=== PATIENT | female | born 2000 | race Caucasian/White ===

== ENCOUNTER → 2022-02-02 13:36 | Outpatient (BNVA) | payer OTHER, SELFPAY | PROVIDERS: PCP Pediatrics; Visit Provider Hospitalist | DX: J45.50 Severe persistent asthma, uncomplicated (principal); J30.9 Allergic rhinitis, unspecified; L20.89 Other atopic dermatitis | CPT/HCPCS: 99202 ==

== ENCOUNTER → 2022-06-22 13:40 | Outpatient (BNVA) | payer OTHER, SELFPAY | PROVIDERS: PCP Pediatrics; Visit Provider Nurse Practitioner Family | DX: J45.51 Severe persistent asthma with (acute) exacerbation (principal); Z79.52 Long term (current) use of systemic steroids; Z79.899 Other long term (current) drug therapy | CPT/HCPCS: 99212 ==

== ENCOUNTER 2022-10-25 | Outpatient (REF) | payer OTHER, SELFPAY | END 2022-10-25 00:01 | disposition home or self-care (01) | LOC: CF | PROVIDERS: Visit Provider Nurse Practitioner Family | DX: J45.50 Severe persistent asthma, uncomplicated (principal); Z79.899 Other long term (current) drug therapy | CPT/HCPCS: 99212 ==

== ENCOUNTER 2022-10-25 09:29 | Outpatient (AMB) | payer OTHER, SELFPAY ==
--- NOTE | 2022-10-25 09:33 | MHC.OFFVIS ---
Intake Vital Signs 10/25/22 09:35 Height 4 ft 11 in Weight 152 lb BMI 30.7 BP 104/60 Blood Pressure Location Rt brachial Position Sitting Pulse 78 Pulse Source Pulse Oximeter Pulse Oximetry (%) 97 Oxygen Delivery Method Room Air Intake Visit Reasons: asthma flare up Caustic Loader Required: No Household Appliances Salesperson: Household Appliances Salesperson offered & declined Accompanied by: Self / Same As Patient Allergies No Known Allergies Allergy (Verified 10/25/22 09:39) Medication List - Last Reconciled 10/25/22 by Aracelis Chan LPN albuterol sulfate 90 mcg/actuation (Ventolin HFA) 0 mcg inhalation albuterol sulfate 2.5 mg (3 mL) inhalation Q6H PRN betamethasone dipropionate 0.05% topical BID PRN cetirizine 10 mg PO BID fluticasone propionate 50 mcg/actuation sprays intranasal hydroxyzine HCl 25 mg PO TID ibuprofen 600 mg PO Q6H PRN mometasone-formoterol 200-5 mcg/actuation (Dulera) 2 puffs inhalation BID montelukast 10 mg PO DAILY nebulizers As directed norgestrel-ethinyl estradiol 0.3-30 mg-mcg (Low-Ogestrel (28)) 1 tab PO DAILY prednisone 40 mg (4 x 10 mg) PO DIRECTED 5 days tiotropium bromide 2.5 mcg/actuation (Spiriva Respimat) 2 puffs inhalation DAILY triamcinolone acetonide 0.1% topical BID PRN Ventolin HFA 90 mcg/actuation (albuterol sulfate) 2 puffs inhalation Q6H PRN 30 days NS HPI asthma flare up HPI Details Shanta is a pleasant 22 year old female with a history of severe, persistent asthma. At [facility] she is well controlled with Dulera, Spiriva, singulair and albuterol neb/MDI. Today she is here for an acute visit. She reports wheezing, shortness of breath with exertion, night time awakenings and chest tightness for the past week. She denies a cough or any exposure to known triggers. She reports using her albuterol 2 puffs every 2-4 hours since symptoms started with partial relief. She has a nebulizer machine but has not used. She did note some relief after using one dose of left over prednisone tablet yesterday. [facility] Medical History (Updated 06/22/22 @ 14:09 by Fauzia Glynn NP) Atopic dermatitis Chronic allergic rhinitis Asthma Social History (Updated 10/25/22 @ 09:41 by Aracelis Chan LPN) Patient Tobacco Use Status: Never used Tobacco Smoked in Last 30 Days: No Review of Systems Const Denies chills, Denies excessive sweating, Denies fever(s), Denies headache(s) and Denies night sweats Eyes Denies dry eyes, Denies irritation and Denies itchy eyes ENT Reports Normal hearing present, Denies headache(s), Denies nasal congestion, Denies nasal discharge, Denies post nasal drip and Denies sore throat Card Denies chest pain, Denies chest pain at rest and Denies chest pain with activity Resp Denies chest congestion, Denies excessive phlegm production, Denies pain on inspiration, Denies pain with cough and Denies stridor Musc Denies myalgias Neuro Reports Normal hearing present and Denies headache(s) Endo Denies excessive sweating Bruno/Lymph Denies lymphadenopathy Aller/Immun Denies itchy eyes and Denies seasonal rhinorrhea Physical Exam Vital Signs: Last Vital Signs Pulse 78 10/25/22 09:35 BP 104/60 10/25/22 09:35 Pulse Ox 97 10/25/22 09:35 Oxygen Delivery Method Room Air 10/25/22 09:35 BMI result Body Mass Index 30.7 Const General: cooperative, healthy appearing, no acute distress, well developed and alert Orientation/consciousness: patient oriented x3 Limitations: no limitations HEENT Head: Yes normal to inspection, Yes normocephalic and Yes atraumatic Ears: hearing grossly normal bilaterally and external ears normal Eyes General: appearance normal, both eyes and all related structures Eyelids: Yes eyelids normal Sclerae: sclerae normal EOM: EOMs intact bilaterally Neck Neck: Yes normal visual inspection Lymphatic: no lymphadenopathy noted Chest Chest palpation & inspection: normal inspection of the chest Resp Effort & Inspection: normal respiratory effort, able to speak in complete sentences, no audible wheezes, no cough, not labored, no respiratory distress, no stridor, not tachypneic, no tripod positioning and no use of accessory muscles Auscultation: no crackles, no rales, no rhonchi and wheezes expiratory wheezes and throughout Cardio Jugular venous distension: no JVD Rate: regular rate Rhythm: regular rhythm Skin Other: warm, dry General skin exam: no rashes or lesions noted Neuro General: patient oriented x3 Cranial nerves: Yes Normal hearing present Cognition (Neuro): normal cognition Gait exam (Neuro): Normal gait present Extrem General: Yes normal to inspection, Yes capillary refill normal and Yes no clubbing, cyanosis or edema Psych Appearance: grossly normal and well kempt Speech and movement: Normal speech and movement present and Clear speech present Affect: normal affect Attitude: cooperative Thought process: Normal thought process present Thought content: Normal thought content present Insight: Good insight present (Psych) Judgement: Good judgement present (Psych) Assessment & Plan Assessment & Plan (1) Asthma: Code(s): J45.909 - Unspecified asthma, uncomplicated Qualifiers: Asthma severity: severe Asthma persistence: persistent Asthma complication type: uncomplicated Qualified Code(s): J45.50 - Severe persistent asthma, uncomplicated Plan Shanta's presentation is consistent with an acute asthma exacerbation. Will send in prednisone and albuterol for her nebulizer. She is aware to contact the office if her symptoms worsen or do not improve. Since the last visit, she did not have a PFT or labs performed. Will enter order for PFT and recommended scheduling a follow up with Dr. Khan. All questions were answered and patient is in agreement of plan. Orders: Orders PFT pulmonary function test Today J45.909 - Unspecified asthma, uncomplicated Medications: Changed From albuterol sulfate 2.5 mg (3 mL) inhalation Q6H PRN 75 mL 0RF shortness of breath or wheezing To albuterol sulfate 2.5 mg (3 mL) inhalation Q6H PRN 75 mL 3RF shortness of breath or wheezing NS Refilled prednisone see taper instructions 40 mg (4 x 10 mg) PO DIRECTED 5 days 20 tabs 0RF Coding Level of Care Code Est Pt Level 3 (22582) Diagnoses Severe persistent asthma without complication J45.50 Asthma severity: severe Asthma persistence: persistent Asthma complication type: uncomplicated
[2022-10-25 09:35] VITALS: BP 104/60; PULSE 78; O2SAT 97; BMI 30.7
== END 2022-10-25 10:10 | disposition home or self-care (01) ==
LOC: HO.HPSW 09:29
PROVIDERS: PCP Pediatrics; Visit Provider Nurse Practitioner Family
DX: J45.50 Severe persistent asthma, uncomplicated (principal)
CPT/HCPCS: 99212; 99213

== ENCOUNTER 2022-11-10 11:39 | Outpatient (AMB) | payer OTHER, SELFPAY ==
[2022-11-10 11:44] VITALS: PULSE 66; O2SAT 96; BMI 30.3
--- NOTE | 2022-11-10 11:44 | MHC.OFFVIS ---
Intake Vital Signs 11/10/22 11:44 Height 4 ft 11 in Weight 150 lb BMI 30.3 Pulse 66 Pulse Source Pulse Oximeter Pulse Oximetry (%) 96 Oxygen Delivery Method Room Air Intake Visit Reasons: asthma exacerbation Dry Chain Worker Required: No Allergies No Known Allergies Allergy (Verified 11/10/22 11:48) HPI HPI Comments History of Present Illness Details The patient is a 21-year-old woman with known severe persistent asthma. She has had asthma for most of her life. She has been under the care of pediatric pulmonary at [facility]. She has not required hospitalization in many years. In the meantime she has underlying significant allergic asthma. She has had allergy testing back in 2008 the last time that I could see. It appeared that she has significant allergies to both environment on exposures and mold. she is also very allergic to cats and dogs and primarily cats. Unfortunately she does have both cats and dogs living with her. Her IgE greater than 3000. Initially she had been on Xolair for peer time. However then she was switched over to Dupixent. The patient apparently did well on Dupixent but she developed significant conjunctivitis and therefore could no longer tolerated. She was also placed on Fasenra for period time. These medications were provided to her many years ago so therefore she does not know exactly how effective they were. But currently after she lost follow up with her retail business manager she stopped using biologics and she has been on inhaler therapy. She has required prednisone on a regular basis based on uncontrolled symptoms in addition to that she does continue to use albuterol on a daily basis. She currently has Ventolin as rescue inhaler although she feels ProAir has been more effective for her in the past. Therefore I will requested. She has been on Dulera and also Spiriva. She has been on this for a few years since she has not seen any significant improvement. Therefore she is wondering if she can consider any other alternatives. This time we can consider switching over to Trelegy. Another option would be to switch over to nebulized therapies will rib on performance. However, this will be more of a commitment with time and in that may be an issue. In addition to that we talked about going back on biologic therapies. Will have her undergo additional blood work at this time get PFTs to see what her baseline is and we will discuss further biologic therapy options that her left based on the once that she has not tried. 11/10/2022 the patient is here for sick visit. The patient was initially evaluated for her significant severe asthma. She was supposed to get blood work in addition to PFTs. Unfortunately, she has not follow through with that. In the meantime she is been evaluated multiple times for asthma flares. Today she did come in for sick visit. She is having increasing chest tightness and wheezing. Denies any fevers or chills. Positive sick contacts she does have cold-like symptoms. The patient has been using her respiratory therapy with Dulera and Spiriva. She is also been using rescue inhaler multiple times a day. At this point the patient does have wheezing on examination appears to have an asthma flare. She is going to need prednisone. 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 Therefore, I did provide her a letter for her to minimize exposure specially while she is recovering from this asthma flare-up. She knows to have a blood work in addition to her PFTs in order to see if we can get her on biologic therapy. She is already tried and failed multiple biologics therefore she is a little reluctant. I do believe that Tezspire will be a good option for [facility] Medical History (Updated 11/10/22 @ 22:47 by Emeka Khan MD) Atopic dermatitis Chronic allergic rhinitis Asthma Social History (Updated 10/25/22 @ 09:41 by Aracelis Chan LPN) Patient Tobacco Use Status: Never used Tobacco Review of Systems Const Denies fatigue and Denies fever(s) Eyes Denies change in vision ENT Denies change in voice Card Denies chest pain and Reports dyspnea on exertion Resp Reports chest congestion, Reports cough, Reports dyspnea on exertion and Reports wheezing GI Reports no additional complaints Musc Reports no additional complaints Skin/Breast Reports rash Neuro Reports no additional complaints Endo Denies fatigue Bruno/Lymph Denies easy bruising and Denies lymphadenopathy Aller/Immun Reports urticaria, Reports seasonal rhinorrhea and Reports wheezing Physical Exam Vital Signs: Last Vital Signs Pulse 66 11/10/22 11:44 Pulse Ox 96 11/10/22 11:44 Oxygen Delivery Method Room Air 11/10/22 11:44 BMI result Body Mass Index 30.3 Const General: comfortable HEENT General nose exam: Abnormal mucous membranes and turbinates present erythematous and Epistaxis present Eyes General: appearance normal, both eyes and all related structures Neck Neck: Yes supple Chest Chest palpation & inspection: normal inspection of the chest Resp Effort & Inspection: normal respiratory effort and prolonged expiratory phase Auscultation: wheezes and diminished lung sounds Cardio Rate: regular rate Rhythm: regular rhythm Heart sounds: S1 normal heart sound present and S2 normal heart sound present GI Auscultation: normal bowel sounds Skin General skin exam: other ( Eczema) Extrem General: Yes no clubbing, cyanosis or edema Assessment & Plan Assessment & Plan (1) Asthma: Code(s): J45.909 - Unspecified asthma, uncomplicated Qualifiers: Asthma complication type: with acute exacerbation Asthma persistence: persistent Asthma severity: severe Qualified Code(s): J45.51 - Severe persistent asthma with (acute) exacerbation (2) Atopic dermatitis: Code(s): L20.9 - Atopic dermatitis, unspecified Qualifiers: Atopic dermatitis type: flexural Qualified Code(s): L20.89 - Other atopic dermatitis (3) Chronic allergic rhinitis: Code(s): J30.9 - Allergic rhinitis, unspecified Plan continue Dulera and Spiriva for now short-acting beta agonist as needed blood work including allergy testing PFTs Will benefit from Tezspire start Prednisone taper Located Within [facility] follow-up in 8-12 weeks Medications: New azithromycin 500 mg PO DAILY 5 days 5 tabs 0RF prednisone PO daily; Take 6 tabs daily x 3 days, then 5 tabs x 3 days, then 4 tabs x 3 days, then 3 tabs x 3 days, then 2 tabs daily x 3 days, then 1 tab x 3 days to complete. 18 days 63 tabs 0RF Coding Level of Care Code Est Pt Level 4 (10135) Diagnoses Severe persistent asthma with acute exacerbation J45.51 Asthma complication type: with acute exacerbation Asthma persistence: persistent Asthma severity: severe Flexural atopic dermatitis L20.89 Atopic dermatitis type: flexural Chronic allergic rhinitis J30.9 Time Spent (min) 17
== END 2022-11-10 11:58 | disposition home or self-care (01) ==
PROVIDERS: PCP Pediatrics; Visit Provider Hospitalist
DX: J45.51 Severe persistent asthma with (acute) exacerbation (principal); L20.89 Other atopic dermatitis; J30.9 Allergic rhinitis, unspecified
CPT/HCPCS: 99214

== ENCOUNTER → 2022-11-10 11:39 | Outpatient (BNVA) | payer OTHER, SELFPAY | PROVIDERS: PCP Pediatrics; Visit Provider Hospitalist | DX: J45.51 Severe persistent asthma with (acute) exacerbation (principal); J30.9 Allergic rhinitis, unspecified; L20.89 Other atopic dermatitis | CPT/HCPCS: 99212 ==

== ENCOUNTER 2023-02-09 09:56 | Outpatient (AMB) | payer OTHER, SELFPAY ==
--- NOTE | 2023-02-09 10:01 | MHC.OFFVIS ---
Intake Vital Signs 02/09/23 10:02 Height 4 ft 11 in Weight 155 lb BMI 31.3 BP 102/60 Blood Pressure Location Lt brachial Position Sitting Pulse 68 Pulse Source Pulse Oximeter Pulse Oximetry (%) 95 Oxygen Delivery Method Room Air Intake Visit Reasons: cough Intake Note: pt is here for cough and chest congestion. the cough is causing some discomfort in the chest, phelgm is yellow in color, wheeze, hx of asthma Hospital Ward Clerk Required: No Allergies No Known Allergies Allergy (Verified 02/09/23 10:34) Medication List - Last Reconciled 02/09/23 by Isidro Cuevas MD albuterol sulfate 90 mcg/actuation (Ventolin HFA) 0 mcg inhalation albuterol sulfate 2.5 mg (3 mL) inhalation Q6H PRN NS betamethasone dipropionate 0.05% topical BID PRN cetirizine 10 mg PO BID cholecalciferol (vitamin D3) (Vitamin D3) 50 mcg PO DAILY fluticasone propionate 50 mcg/actuation sprays intranasal hydroxyzine HCl 25 mg PO TID ibuprofen 600 mg PO Q6H PRN mometasone-formoterol 200-5 mcg/actuation (Dulera) 2 puffs inhalation BID montelukast 10 mg PO DAILY nebulizers As directed norgestrel-ethinyl estradiol 0.3-30 mg-mcg (Low-Ogestrel (28)) 1 tab PO DAILY prednisone PO daily; Take 6 tabs daily x 3 days, then 5 tabs x 3 days, then 4 tabs x 3 days, then 3 tabs x 3 days, then 2 tabs daily x 3 days, then 1 tab x 3 days to complete. 18 days tezepelumab-ekko (Tezspire) 210 mg (1.91 mL) subcut Q4W 4 weeks tiotropium bromide 2.5 mcg/actuation (Spiriva Respimat) 2 puffs inhalation DAILY triamcinolone acetonide 0.1% topical BID PRN Do you need a note to return to daycare/school/sports/work: No HPI cough HPI Details THIS 22 YEARS OLD FEMALE IS A KNOWN CASE OF CHRONIC BRONCHIAL ASTHMA AND ALLERGIC RHINITIS. HAS A BASELINE SHE IS BEING TREATED WITH DULERA, SPIRIVA RESPIMAT, AND ALBUTEROL NEEDED. SHE HAS SYMPTOMS OF ACUTE EXACERBATION INCLUDING COUGH, CHEST CONGESTION, WHEEZING AND INCREASED SHORTNESS OF BREATH SINCE 1 WEEK. SHE HAS BEEN PRESCRIBED THE PREDNISONE ON A TAPERING DOSE AND IS DOWN TO 20 MG A DAY ALREADY. SHE FEELS SKILLED NURSING BETTER BUT STILL CONTINUES TO HAVE COUGH AND CONGESTED FEELING. [facility] Medical History (Updated 02/09/23 @ 10:40 by Isidro Cuevas MD) Asthma exacerbation Atopic dermatitis Chronic allergic rhinitis Asthma Social History Patient Tobacco Use Status: Never used Tobacco Review of Systems Const Denies fatigue and Denies fever(s) Eyes Denies change in vision ENT Denies change in voice Card Denies chest pain and Reports dyspnea on exertion Resp Reports chest congestion, Reports cough, Reports dyspnea on exertion and Reports wheezing GI Reports no additional complaints Musc Reports no additional complaints Skin/Breast Reports rash Neuro Reports no additional complaints Endo Denies fatigue Bruno/Lymph Denies easy bruising and Denies lymphadenopathy Aller/Immun Reports urticaria, Reports seasonal rhinorrhea and Reports wheezing Physical Exam Vital Signs: Last Vital Signs Pulse 68 02/09/23 10:02 BP 102/60 02/09/23 10:02 Pulse Ox 95 02/09/23 10:02 Oxygen Delivery Method Room Air 02/09/23 10:02 BMI result Body Mass Index 31.3 Const General: comfortable HEENT General nose exam: Normal external nose present Mouth: Normal oral and palatal mucosa present Throat: Yes posterior oropharynx normal Eyes General: appearance normal, both eyes and all related structures Neck Neck: Yes supple Chest Chest palpation & inspection: normal inspection of the chest, normal palpation of entire chest wall and no tenderness Resp Effort & Inspection: normal respiratory effort and prolonged expiratory phase Auscultation: wheezes (BILATERAL ) and diminished lung sounds Cardio Rate: regular rate Rhythm: regular rhythm Heart sounds: S1 normal heart sound present and S2 normal heart sound present GI Auscultation: normal bowel sounds Skin General skin exam: other ( Eczema) Extrem General: Yes no clubbing, cyanosis or edema Assessment & Plan Assessment & Plan (1) Asthma exacerbation: Comment: AT THIS TIME SHE HAS ACUTE EXACERBATION PROBABLY RELATED TO ACUTE RESPIRATORY INFECTION. SHE IS ALREADY ON PREDNISONE TAPER. SHE DOES NEED A COURSE OF ANTIBIOTIC. ADVISED TO CONTINUE HER REGULAR MEDICAL REGIMEN. Code(s): J45.901 - Unspecified asthma with (acute) exacerbation Plan: I HAVE ORDERED Z-RAMONA. CONTINUE TO USE PREDNISONE AT A TAPERING SCHEDULE. MAY USE MUCINEX OR ROBITUSSIN 2 TSP T.I.D. FOR COUGH. (2) Chronic allergic rhinitis: Code(s): J30.9 - Allergic rhinitis, unspecified Plan: CONTINUE MONTELUKAST. 10 MG DAILY USE FLONASE NASAL SPRAY 1 SPRAY IN EACH NOSTRIL B.I.D. NEEDED. Medications: New azithromycin For 250 mg dose pack: take 500 mg today (day 1), then 250 mg for 4 days (days 2-5) PO 6 tabs 0RF Coding Level of Care Code Est Pt Level 3 (58357) Diagnoses Asthma exacerbation J45.901 Chronic allergic rhinitis J30.9
[2023-02-09 10:02] VITALS: BP 102/60; PULSE 68; O2SAT 95; BMI 31.3
== END 2023-02-09 10:35 | disposition home or self-care (01) ==
PROVIDERS: PCP Pediatrics; Visit Provider Internal Medicine
DX: J45.901 Unspecified asthma with (acute) exacerbation (principal); J30.9 Allergic rhinitis, unspecified
CPT/HCPCS: 99213

== ENCOUNTER → 2023-02-09 09:56 | Outpatient (BNVA) | payer OTHER, SELFPAY | PROVIDERS: PCP Pediatrics; Visit Provider Internal Medicine | DX: J45.901 Unspecified asthma with (acute) exacerbation (principal); J30.9 Allergic rhinitis, unspecified | CPT/HCPCS: 99212 ==

== ENCOUNTER 2023-02-23 13:46 | Outpatient (AMB) | payer OTHER, SELFPAY ==
--- NOTE | 2023-02-23 13:48 | A.OFFVIS_ITS ---
Intake Vital Signs 02/23/23 13:50 Weight 161 lb BP 114/62 Blood Pressure Location Lt brachial Position Sitting Pulse 88 Pulse Source Pulse Oximeter Pulse Oximetry (%) 96 Oxygen Delivery Method Room Air Intake Visit Reasons: asthma exacerbation Medical Imaging Technologist Required: No Gas Line Servicer: Gas Line Servicer offered & declined Accompanied by: Self / Same As Patient Allergies No Known Allergies Allergy (Verified 02/23/23 13:53) Medication List - Last Reconciled 02/23/23 by Aracelis Chan LPN albuterol sulfate 2.5 mg (3 mL) inhalation Q6H PRN NS betamethasone dipropionate 0.05% topical BID PRN cetirizine 10 mg PO BID cholecalciferol (vitamin D3) (Vitamin D3) 50 mcg PO DAILY fluticasone propionate 50 mcg/actuation sprays intranasal hydroxyzine HCl 25 mg PO TID ibuprofen 600 mg PO Q6H PRN mometasone-formoterol 200-5 mcg/actuation (Dulera) 2 puffs inhalation BID montelukast 10 mg PO DAILY nebulizers As directed norgestrel-ethinyl estradiol 0.3-30 mg-mcg (Low-Ogestrel (28)) 1 tab PO DAILY tezepelumab-ekko (Tezspire) 210 mg (1.91 mL) subcut Q4W 4 weeks tiotropium bromide 2.5 mcg/actuation (Spiriva Respimat) 2 puffs inhalation DAILY triamcinolone acetonide 0.1% topical BID PRN Ventolin HFA 90 mcg/actuation (albuterol sulfate) 2 puffs inhalation Q6H PRN NS HPI asthma exacerbation HPI Details Shanta is a pleasant 22 year old female with a history of severe, persistent asthma. At baseline she is moderately controlled with Dulera, Spiriva, singulair and albuterol neb/MDI. She will be starting Tezspire in the near future. Today she is here for an acute visit. She was recently evaluated for similar symptoms three weeks ago, treated with a zpak and prednisone which improved but once she discontinued prednisone, symptoms of wheezing, shortness of breath with exertion and chest tightness began a few days later. She reports using her albuterol 2 puffs every 2-4 hours since symptoms started with partial relief. [facility] Medical History (Updated 02/09/23 @ 10:40 by Isidro Cuevsa MD) Asthma exacerbation Atopic dermatitis Chronic allergic rhinitis Asthma Social History (Updated 02/23/23 @ 13:55 by Aracelis Chan LPN) Patient Tobacco Use Status: Never used Tobacco Smoked in Last 30 Days: No Review of Systems Const Denies chills, Denies excessive sweating, Denies fever(s), Denies headache(s) and Denies night sweats Eyes Denies dry eyes, Denies irritation and Denies itchy eyes ENT Reports Normal hearing present, Denies headache(s), Denies nasal congestion, Denies nasal discharge, Denies post nasal drip and Denies sore throat Card Denies chest pain, Denies chest pain at rest, Denies chest pain with activity and Reports dyspnea Resp Denies chest congestion, Reports cough, Denies excessive phlegm production, Denies pain on inspiration, Denies pain with cough, Reports dyspnea, Denies stridor and Reports wheezing Musc Denies myalgias Neuro Reports Normal hearing present and Denies headache(s) Endo Denies excessive sweating Bruno/Lymph Denies lymphadenopathy Aller/Immun Denies itchy eyes, Denies seasonal rhinorrhea and Reports wheezing Physical Exam Vital Signs: Last Vital Signs Pulse 88 02/23/23 13:50 BP 114/62 02/23/23 13:50 Pulse Ox 96 02/23/23 13:50 Oxygen Delivery Method Room Air 02/23/23 13:50 Const General: cooperative, healthy appearing, no acute distress, well developed and alert Orientation/consciousness: patient oriented x3 Limitations: no limitations HEENT Head: Yes normal to inspection, Yes normocephalic and Yes atraumatic Ears: hearing grossly normal bilaterally and external ears normal Eyes General: appearance normal, both eyes and all related structures Eyelids: Yes eyelids normal Sclerae: sclerae normal EOM: EOMs intact bilaterally Neck Neck: Yes normal visual inspection Lymphatic: no lymphadenopathy noted Chest Chest palpation & inspection: normal inspection of the chest Resp Other: moderate wheezing throughout , improved after duoneb Effort & Inspection: normal respiratory effort, able to speak in complete sentences, no audible wheezes, no cough, not labored, no respiratory distress, no stridor, not tachypneic, no tripod positioning and no use of accessory muscles Auscultation: no crackles, no rales, no rhonchi and wheezes expiratory wheezes and throughout Cardio Jugular venous distension: no JVD Rate: regular rate Rhythm: regular rhythm Skin Other: warm, dry General skin exam: no rashes or lesions noted Neuro General: patient oriented x3 Cranial nerves: Yes Normal hearing present Cognition (Neuro): normal cognition Gait exam (Neuro): Normal gait present Extrem General: Yes normal to inspection, Yes capillary refill normal and Yes no clubbing, cyanosis or edema Psych Appearance: grossly normal and well kempt Speech and movement: Normal speech and movement present and Clear speech present Affect: normal affect Attitude: cooperative Thought process: Normal thought process present Thought content: Normal thought content present Insight: Good insight present (Psych) Judgement: Good judgement present (Psych) Office Procedures Nebulizer Treatment Nebulizer Treatment [id number]/MDI RX initial, or Nebulizer Subsequent Treatment Office Meds ipratropium 0.5 mg-albuterol 3 mg (2.5 mg base)/3 mL nebulization soln Performing Provider: Fauzia Glynn NP Performing Location: [facility] [place] Pulmonology Services-[facility] Administered by: Aracelis Chan LPN on 02/23/23 14:15 Dose Route Admin Location Dispensed Lot Number Expiration Date [facility] Lab Coordinator 3 mL inhalation 3 mL [id number] 11/13/24 34199-517-26 [place] Assessment & Plan Assessment & Plan (1) Asthma: Code(s): J45.909 - Unspecified asthma, uncomplicated Qualifiers: Asthma severity: severe Asthma persistence: persistent Asthma complication type: with acute exacerbation Qualified Code(s): J45.51 - Severe persistent asthma with (acute) exacerbation Plan Shanta's presentation is consistent with an acute asthma exacerbation. Will send in prednisone. She is aware to contact the office if her symptoms worsen or do not improve. Will follow up for regularly scheduled follow up with Dr. Khan. All questions were answered and patient is in agreement of plan. Orders: Orders AMB Nebulizer Treatment Today J45.901 - Unspecified asthma with (acute) exace rbation Medications: New prednisone Take 4 pills daily for 5 days, then go down by 1 pill every 5 days; 20 days 50 tabs 0RF 10 mg PO DIRECTED 50 tabs 0RF Coding Level of Care Code Est Pt Level 4 (01000) Diagnoses Severe persistent asthma with acute exacerbation J45.51 Asthma severity: severe Asthma persistence: persistent Asthma complication type: with acute exacerbation CPT Codes Nebulizer Treatment - Nebulizer Treatment, initial or subsequent: [id number]- Nebulizer/MDI RX initial, or Nebulizer Subsequent Treatment ([id number])
[2023-02-23 13:50] VITALS: BP 114/62; PULSE 88; O2SAT 96
== END 2023-02-23 15:02 | disposition home or self-care (01) ==
PROVIDERS: PCP Pediatrics; Visit Provider Nurse Practitioner Family
DX: J45.51 Severe persistent asthma with (acute) exacerbation (principal); J45.901 Unspecified asthma with (acute) exacerbation
CPT/HCPCS: 99214

== ENCOUNTER → 2023-02-23 13:46 | Outpatient (BNVA) | payer OTHER, SELFPAY | PROVIDERS: PCP Pediatrics; Visit Provider Nurse Practitioner Family | DX: J45.51 Severe persistent asthma with (acute) exacerbation (principal) | CPT/HCPCS: 94640; 99212 ==

== ENCOUNTER 2023-03-04 11:06 | Outpatient (AMB) | payer OTHER, SELFPAY ==
[2023-03-04 11:14] VITALS: PULSE 76; O2SAT 97; BMI 31.5
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
== END 2023-03-04 11:31 | disposition home or self-care (01) ==
PROVIDERS: PCP Pediatrics; Visit Provider Hospitalist
DX: J45.51 Severe persistent asthma with (acute) exacerbation (principal); L20.89 Other atopic dermatitis; J30.9 Allergic rhinitis, unspecified
CPT/HCPCS: 99214

== ENCOUNTER → 2023-03-04 11:06 | Outpatient (BNVA) | payer OTHER, SELFPAY | PROVIDERS: PCP Pediatrics; Visit Provider Hospitalist | DX: J45.51 Severe persistent asthma with (acute) exacerbation (principal); J30.9 Allergic rhinitis, unspecified; L20.89 Other atopic dermatitis | CPT/HCPCS: 99212 ==

== ENCOUNTER 2023-04-19 09:57 | Outpatient (AMB) | payer OTHER, SELFPAY ==
[2023-04-19 11:12] VITALS: BP 110/60; PULSE 90; O2SAT 99
--- NOTE | 2023-04-19 11:12 | A.OFFVIS_ITS ---
Intake Vital Signs 04/19/23 11:12 Weight 154 lb 5.177 oz BP 110/60 Blood Pressure Location Rt brachial Position Sitting Pulse 90 Pulse Source Pulse Oximeter Pulse Oximetry (%) 99 Oxygen Delivery Method Room Air Intake Visit Reasons: Tezspire Teaching Allergies No Known Allergies Allergy (Verified 04/19/23 11:12) Medication List - Last Reconciled 04/19/23 by Parvin Beyer LPN albuterol sulfate 2.5 mg (3 mL) inhalation Q6H PRN NS betamethasone dipropionate 0.05% topical BID PRN cetirizine 10 mg PO BID cholecalciferol (vitamin D3) (Vitamin D3) 50 mcg PO DAILY fluticasone propionate 50 mcg/actuation sprays intranasal hydroxyzine HCl 25 mg PO TID ibuprofen 600 mg PO Q6H PRN mometasone-formoterol 200-5 mcg/actuation (Dulera) 2 puffs inhalation BID 30 days montelukast 10 mg PO DAILY 90 days nebulizers As directed norgestrel-ethinyl estradiol 0.3-30 mg-mcg (Low-Ogestrel (28)) 1 tab PO DAILY prednisone 10 mg PO DAILY 30 days prednisone 10 mg PO DIRECTED tezepelumab-ekko (Tezspire) 210 mg (1.91 mL) subcut Q4W 4 weeks tiotropium bromide 2.5 mcg/actuation (Spiriva Respimat) 2 puffs inhalation DAILY 30 days triamcinolone acetonide 0.1% topical BID PRN Ventolin HFA 90 mcg/actuation (albuterol sulfate) 2 puffs inhalation Q6H PRN NS HPI Tezspire Teaching HPI Details Shanta is here for a Tezspire teach she was educated on hand washing, injection preparation, administration, and disposal.? Shanta was able to return demonstrate proper technique for hand washing, injection preparation, administration and disposal of needle and states she has no questions at this time. Medication Tezspire 210mg pre-filled syringe (patient?s own meds) given by the patient in 1 SQ injection in her R abdomen Lot# [id number] expires 02/13/2025. Patient aware her next injection is in 4 weeks. Nurse visit only.? [facility] Medical History (Updated 03/04/23 @ 12:21 by Emeka Khan MD) Asthma exacerbation Atopic dermatitis Chronic allergic rhinitis Asthma Social History (Updated 02/23/23 @ 13:55 by Aracelis Chan LPN) Patient Tobacco Use Status: Never used Tobacco Physical Exam Vital Signs: Last Vital Signs Pulse 90 04/19/23 11:12 BP 110/60 04/19/23 11:12 Pulse Ox 99 04/19/23 11:12 Oxygen Delivery Method Room Air 04/19/23 11:12 Assessment & Plan Assessment & Plan (1) Asthma: Code(s): J45.909 - Unspecified asthma, uncomplicated Qualifiers: Asthma complication type: with acute exacerbation Asthma persistence: persistent Asthma severity: severe Qualified Code(s): J45.51 - Severe persistent asthma with (acute) exacerbation Plan Start Tezspire Coding Level of Care Code Established Pt Est Pt Level 1 (04689) Patient Type Established Diagnoses Severe persistent asthma with acute exacerbation J45.51 Asthma complication type: with acute exacerbation Asthma persistence: persistent Asthma severity: severe Comment NURSE VISIT ONLY
== END 2023-04-19 10:17 | disposition home or self-care (01) ==
PROVIDERS: PCP Pediatrics; Visit Provider Hospitalist
DX: J45.51 Severe persistent asthma with (acute) exacerbation (principal)

== ENCOUNTER → 2023-04-19 09:57 | Outpatient (BNVA) | payer OTHER, SELFPAY | PROVIDERS: PCP Pediatrics; Visit Provider Hospitalist | DX: J45.51 Severe persistent asthma with (acute) exacerbation (principal) | CPT/HCPCS: 99211 ==

== ENCOUNTER 2023-07-01 11:13 | Outpatient (AMB) | payer OTHER, SELFPAY ==
[2023-07-01 11:26] VITALS: PULSE 70; O2SAT 95; BMI 31.7
--- NOTE | 2023-07-01 11:26 | MHC.OFFVIS ---
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 She has had asthma for most of her life. She has been under the care of pediatric pulmonary at [facility]. She has not required hospitalization in many years. In the meantime she has underlying significant allergic asthma. She has had allergy testing back in 2008 the last time that I could see. It appeared that she has significant allergies to both environment on exposures and mold. she is also very allergic to cats and dogs and primarily cats. Unfortunately she does have both cats and dogs living with her. Her IgE greater than 3000. Initially she had been on Xolair for peer time. However then she was switched over to Dupixent. The patient apparently did well on Dupixent but she developed significant conjunctivitis and therefore could no longer tolerated. She was also placed on Fasenra for period time. These medications were provided to her many years ago so therefore she does not know exactly how effective they were. But currently after she lost follow up with her glass sander she stopped using biologics and she has been on inhaler therapy. She has required prednisone on a regular basis based on uncontrolled symptoms in addition to that she does continue to use albuterol on a daily basis. She currently has Ventolin as rescue inhaler although she feels ProAir has been more effective for her in the past. Therefore I will requested. She has been on Dulera and also Spiriva. She has been on this for a few years since she has not seen any significant improvement. Therefore she is wondering if she can consider any other alternatives. This time we can consider switching over to Trelegy. Another option would be to switch over to nebulized therapies will rib on performance. However, this will be more of a commitment with time and in that may be an issue. In addition to that we talked about going back on biologic therapies. Will have her undergo additional blood work at this time get PFTs to see what her baseline is and we will discuss further biologic therapy options that her left based on the once that she has not tried. 11/10/2022 the patient is here for sick visit. The patient was initially evaluated for her significant severe asthma. She was supposed to get blood work in addition to PFTs. Unfortunately, she has not follow through with that. In the meantime she is been evaluated multiple times for asthma flares. Today she did come in for sick visit. She is having increasing chest tightness and wheezing. Denies any fevers or chills. Positive sick contacts she does have cold-like symptoms. The patient has been using her respiratory therapy with Dulera and Spiriva. She is also been using rescue inhaler multiple times a day. At this point the patient does have wheezing on examination appears to have an asthma flare. She is going to need prednisone. 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 Therefore, I did provide her a letter for her to minimize exposure specially while she is recovering from this asthma flare-up. She knows to have a blood work in addition to her PFTs in order to see if we can get her on biologic therapy. She is already tried and failed multiple biologics therefore she is a little reluctant. I do believe that Tezspire will be a good option. 03/04/2023 the patient is here for a pulmonary follow-up visit. She has a hard time with the breathing. She has had multiple sick visits because of worsening asthma exacerbations. She is required prednisone now multiple times as well. She is still on a prednisone taper down to 30 mg. She also continues with respiratory medications although her Dulera was not refilled. I will make sure to send her all the medications the pharmacy as she needs to be able to continue with good adherence. In the meantime she was approved for test prior. Although, she lives in [place] and is very hard for her to get here. Therefore I did talk to our nursing staff and will going to see about switching her Tezspire to a home administration. Once she gets the medication at home if is approved then she will call the office for us to set up a 1 time visit for teaching. In the meantime I did set her additional prednisone. This is to slow down her prednisone tapers she can decrease down to 10 an [id number] so therefore she does not have another flare-up before her test prior injection. 07/01/2023 the patient is here for a pulmonary follow-up visit. She is doing fairly well. She does respond well to the Dulera and Spiriva. She has also been taking prednisone again. She started working outside and she started having a little flare up and she wanted to make sure that it improve so she did have to miss any work. She is working at a car wash. She has not exposed to the fumes or the chemicals because she is mainly outside. In the meantime she has responded well to the Tezspire. She has not been able to get it. Will go ahead and give her the information so she can call the pharmacy, [facility] in order to request delivery of the injections that she can continue the biologic therapy. The patient does have persistent severe asthma and therefore these biologic therapies will be crucial. She is going to monitor closely for any worsening eczema while on the Tezspire. In the meantime she is going to wean off her prednisone. [facility] Medical History (Updated 03/04/23 @ 12:21 by Emeka Khan MD) Asthma exacerbation Atopic dermatitis Chronic allergic rhinitis Asthma Social History (Updated 02/23/23 @ 13:55 by Aracelis Chan LPN) Patient Tobacco Use Status: Never used Tobacco Review of Systems Const Denies fatigue and Denies fever(s) Eyes Denies change in vision ENT Denies change in voice Card Denies chest pain and Reports dyspnea on exertion Resp Reports chest congestion, Reports cough, Reports dyspnea on exertion and Reports wheezing GI Reports no additional complaints Musc Reports no additional complaints Skin/Breast Reports rash Neuro Reports no additional complaints Endo Denies fatigue Bruno/Lymph Denies easy bruising and Denies lymphadenopathy Aller/Immun Reports urticaria, Reports seasonal rhinorrhea and Reports wheezing Physical Exam Vital Signs: Last Vital Signs Pulse 70 07/01/23 11:26 Pulse Ox 95 07/01/23 11:26 Oxygen Delivery Method Room Air 07/01/23 11:26 BMI result Body Mass Index 31.7 Const General: comfortable HEENT General nose exam: Abnormal mucous membranes and turbinates present erythematous and Epistaxis present Eyes General: appearance normal, both eyes and all related structures Neck Neck: Yes supple Chest Chest palpation & inspection: normal inspection of the chest Resp Effort & Inspection: normal respiratory effort and prolonged expiratory phase Auscultation: no wheezes and diminished lung sounds Cardio Rate: regular rate Rhythm: regular rhythm Heart sounds: S1 normal heart sound present and S2 normal heart sound present GI Auscultation: normal bowel sounds Skin General skin exam: other ( Eczema) Extrem General: Yes no clubbing, cyanosis or edema Assessment & Plan Assessment & Plan (1) Asthma: Code(s): J45.909 - Unspecified asthma, uncomplicated Category: Medical Qualifiers: Asthma complication type: with acute exacerbation Asthma persistence: persistent Asthma severity: severe Qualified Code(s): J45.51 - Severe persistent asthma with (acute) exacerbation (2) Atopic dermatitis: Code(s): L20.9 - Atopic dermatitis, unspecified Category: Medical Qualifiers: Atopic dermatitis type: flexural Qualified Code(s): L20.89 - Other atopic dermatitis (3) Chronic allergic rhinitis: Code(s): J30.9 - Allergic rhinitis, unspecified Category: Medical Plan continue Dulera and Spiriva short-acting beta agonist as needed start Tezspire with home administration, will call [facility] for shipment continue slow Prednisone taper Follow-up in 4 months Coding Level of Care Code Est Pt Level 4 (33555) Diagnoses Severe persistent asthma with acute exacerbation J45.51 Asthma complication type: with acute exacerbation Asthma persistence: persistent Asthma severity: severe Flexural atopic dermatitis L20.89 Atopic dermatitis type: flexural Chronic allergic rhinitis J30.9 Time Spent (min) 16
== END 2023-07-01 11:35 | disposition home or self-care (01) ==
PROVIDERS: PCP Pediatrics; Visit Provider Hospitalist
DX: J45.51 Severe persistent asthma with (acute) exacerbation (principal); L20.89 Other atopic dermatitis; J30.9 Allergic rhinitis, unspecified
CPT/HCPCS: 99214

== ENCOUNTER → 2023-07-01 11:13 | Outpatient (BNVA) | payer OTHER, SELFPAY | PROVIDERS: PCP Pediatrics; Visit Provider Hospitalist | DX: J45.51 Severe persistent asthma with (acute) exacerbation (principal); J30.9 Allergic rhinitis, unspecified; L20.89 Other atopic dermatitis | CPT/HCPCS: 99212 ==

== ENCOUNTER 2023-09-14 10:55 | Outpatient (AMB) | payer OTHER, SELFPAY ==
--- NOTE | 2023-09-14 10:57 | MHC.OFFVIS ---
Vital Signs 09/14/23 10:58 Height 4 ft 11 in Weight 158 lb 2 oz BMI 31.9 BP 116/72 Blood Pressure Location Rt brachial Position Sitting Pulse 78 Pulse Source Pulse Oximeter Temp 98.2 F Temp Source Oral Pulse Oximetry (%) 95 Oxygen Delivery Method Room Air Intake Visit Reasons: asthma exacerbation Allergies No Known Allergies Allergy (Verified 09/14/23 11:00) HPI HPI asthma exacerbation: Details: Shanta is a pleasant 23 year old female with a history of severe, persistent asthma. At baseline she is poorly controlled with Dulera, Spiriva, singulair and albuterol neb/MDI. She had one dose of Tezspire however missed one dose and received a shipment today. Today she is here for an acute visit. She reports sore throat, feeling feverish and productive cough with yellow sputum that started Tuesday with worsening dyspnea, wheezing, chest tightness. She started taking 60 mg of prednisone 2 days ago with no changes. She has been using both albuterol MDI/neb with minimal effect. [facility] Medical History (Updated 03/04/23 @ 12:21 by Emeka Khan MD) Asthma exacerbation Atopic dermatitis Chronic allergic rhinitis Asthma Social History Patient Tobacco Use Status: Never used Tobacco Review of Systems Const Denies chills, Denies excessive sweating, Denies fever(s), Denies headache(s) and Denies night sweats Eyes Denies dry eyes, Denies irritation and Denies itchy eyes ENT Reports Normal hearing present, Denies headache(s), Denies nasal congestion, Denies nasal discharge, Denies post nasal drip and Denies sore throat Card Denies chest pain, Denies chest pain at rest, Denies chest pain with activity, Denies claudication, Denies leg edema, Denies orthopnea and Denies paroxysmal nocturnal dyspnea Resp Denies excessive phlegm production, Denies pain on inspiration, Denies pain with cough and Denies stridor Musc Denies myalgias Neuro Reports Normal hearing present and Denies headache(s) Endo Denies excessive sweating Bruno/Lymph Denies lymphadenopathy Aller/Immun Denies itchy eyes and Denies seasonal rhinorrhea Physical Exam Vital Signs: Last Vital Signs Temp 98.2 F 07/31/24 10:58 Pulse 78 09/14/23 10:58 BP 116/72 09/14/23 10:58 Pulse Ox 95 09/14/23 10:58 Oxygen Delivery Method Room Air 09/14/23 10:58 BMI result Body Mass Index 31.9 Const General: cooperative, no acute distress, well developed and alert Nutritional Appearance: obese Orientation/consciousness: patient oriented x3 Limitations: no limitations HEENT Head: Yes normal to inspection, Yes normocephalic and Yes atraumatic Ears: hearing grossly normal bilaterally and external ears normal Eyes General: appearance normal, both eyes and all related structures Eyelids: Yes eyelids normal Sclerae: sclerae normal EOM: EOMs intact bilaterally Neck Neck: Yes normal visual inspection and Yes no lymphadenopathy Lymphatic: no lymphadenopathy noted Chest Chest palpation & inspection: normal inspection of the chest Resp Effort & Inspection: able to speak in complete sentences, no audible wheezes, no cough, labored, no stridor, not tachypneic, no tripod positioning and no use of accessory muscles Auscultation: rhonchi and wheezes Cardio Jugular venous distension: no JVD Rate: regular rate Rhythm: regular rhythm Skin Other: warm, dry General skin exam: no rashes or lesions noted Neuro General: patient oriented x3 Cranial nerves: Yes Normal hearing present Cognition (Neuro): normal cognition Gait exam (Neuro): Normal gait present Extrem General: Yes normal to inspection, Yes capillary refill normal, Yes no clubbing, cyanosis or edema and Yes no pedal edema Psych Appearance: grossly normal and well kempt Speech and movement: Normal speech and movement present and Clear speech present Affect: normal affect Attitude: cooperative Thought process: Normal thought process present Thought content: Normal thought content present Insight: Good insight present (Psych) Judgement: Good judgement present (Psych) Office Procedures Nebulizer Treatment Nebulizer Treatment [id number] RX initial, or Nebulizer Subsequent Treatment Office Meds methylprednisolone sod suc(PF) 125 mg/2 mL solution for injection Performing Provider: Fauzia Glynn NP Performing Location: [facility] Administered by: Aracelis Chan LPN on 09/14/23 11:39 Dose Route Admin Location Dispensed Lot Number Expiration Date [facility] [employer] 125 mg IM left buttock 2 ea [id number] 05/14/25 9963-5822-89 [employer] ipratropium 0.5 mg-albuterol 3 mg (2.5 mg base)/3 mL nebulization soln Performing Provider: Fauzia Glynn NP Performing Location: [facility] Administered by: Aracelis Chan LPN on 09/14/23 11:18 Dose Route Admin Location Dispensed Lot Number Expiration Date [place] [employer] 3 mL inhalation 3 mL [id number] 05/14/25 78062-802-04 [employer] Assessment & Plan Assessment & Plan (1) Asthma: Code(s): J45.909 - Unspecified asthma, uncomplicated Category: Medical Qualifiers: Asthma complication type: with acute exacerbation Asthma persistence: persistent Asthma severity: severe Qualified Code(s): J45.51 - Severe persistent asthma with (acute) exacerbation Plan Fuad presents with bronchitic symptoms as well as worsening respiratory symptoms. Will send in azithromycin as well as slow prednisone taper. Significant wheezing throughout on examination, mildly improved with DuoNeb. Solumedrol given in office She is aware to contact the office if her symptoms do not improve to call office or worsen to seek emergent care. Discussed importance of compliance with medication regimen. Will follow up for regularly scheduled follow up with Dr. Khan. All questions were answered and patient is in agreement of plan. Orders: Orders AMB Nebulizer Treatment Today J45.901 - Unspecified asthma with (acute) exacerbation AMB Methylprednisolone Sod Succ Injection Today J45.51 - Severe persistent asthma with (acute) exacerbation, J45.901 - Unspecified asthma with (acute) exacerbation Medications: New prednisone see taper instructions Take 6 pills daily for 3 days, then go down by 1 pill every 3 days; 18 days 63 tabs 0RF 10 mg PO DIRECTED 63 tabs 0RF azithromycin For 250 mg dose pack: take 500 mg today (day 1), then 250 mg for 4 days (days 2-5) PO 6 tabs 0RF Coding Level of Care Code Est Pt Level 4 (58695) Diagnoses Severe persistent asthma with acute exacerbation J45.51 Asthma complication type: with acute exacerbation Asthma persistence: persistent Asthma severity: severe CPT Codes Nebulizer Treatment - Nebulizer Treatment, initial or subsequent: [id number] RX initial, or Nebulizer Subsequent Treatment ([id number])
[2023-09-14 10:58] VITALS: BP 116/72; PULSE 78; TEMP 36.8; O2SAT 95; BMI 31.9
== END 2023-09-14 11:36 | disposition home or self-care (01) ==
LOC: HO.HPSW 10:55
PROVIDERS: PCP Pediatrics; Visit Provider Nurse Practitioner Family
DX: J45.901 Unspecified asthma with (acute) exacerbation (principal); J45.51 Severe persistent asthma with (acute) exacerbation
CPT/HCPCS: 99214

== ENCOUNTER → 2023-09-14 10:55 | Outpatient (BNVA) | payer OTHER, SELFPAY | PROVIDERS: PCP Pediatrics; Visit Provider Nurse Practitioner Family | DX: J45.51 Severe persistent asthma with (acute) exacerbation (principal) | CPT/HCPCS: 94640; 99212; J2919 ==

== ENCOUNTER 2024-03-20 09:58 | Outpatient (AMB) | payer MEDICAID, SELFPAY ==
--- NOTE | 2024-03-20 10:01 | A.OFFVIS_ITS ---
Vital Signs 03/20/24 10:02 Height 4 ft 11 in Weight 167 lb 8.821 oz BMI 33.8 BP 114/60 Blood Pressure Location Rt brachial Position Sitting Pulse 83 Pulse Source Pulse Oximeter Pulse Oximetry (%) 97 Oxygen Delivery Method Room Air Intake Visit Reasons: asthma Allergies No Known Allergies Allergy (Verified 03/20/24 10:05) HPI Comments Details: The patient is a 23-year-old woman with known severe persistent asthma. She has had asthma for most of her life. She has been under the care of pediatric pulmonary at [facility]. She has not required hospitalization in many years. In the meantime she has underlying significant allergic asthma. She has had allergy testing back in 2008 the last time that I could see. It appeared that she has significant allergies to both environment on exposures and mold. she is also very allergic to cats and dogs and primarily cats. Unfortunately she does have both cats and dogs living with her. Her IgE greater than 3000. Initially she had been on Xolair for peer time. However then she was switched over to Dupixent. The patient apparently did well on Dupixent but she developed significant conjunctivitis and therefore could no longer tolerated. She was also placed on Fasenra for period time. These medications were provided to her many years ago so therefore she does not know exactly how effective they were. But currently after she lost follow up with her flute teacher she stopped using biologics and she has been on inhaler therapy. She has required prednisone on a regular basis based on uncontrolled symptoms in addition to that she does continue to use albuterol on a daily basis. She currently has Ventolin as rescue inhaler although she feels ProAir has been more effective for her in the past. Therefore I will requested. She has been on Dulera and also Spiriva. She has been on this for a few years since she has not seen any significant improvement. Therefore she is wondering if she can consider any other alternatives. This time we can consider switching over to Trelegy. Another option would be to switch over to nebulized therapies will rib on performance. However, this will be more of a commitment with time and in that may be an issue. In addition to that we talked about going back on biologic therapies. Will have her undergo additional blood work at this time get PFTs to see what her baseline is and we will discuss further biologic therapy options that her left based on the once that she has not tried. 11/10/2022 the patient is here for sick visit. The patient was initially evaluated for her significant severe asthma. She was supposed to get blood work in addition to PFTs. Unfortunately, she has not follow through with that. In the meantime she is been evaluated multiple times for asthma flares. Today she did come in for sick visit. She is having increasing chest tightness and wheezing. Denies any fevers or chills. Positive sick contacts she does have cold-like symptoms. The patient has been using her respiratory therapy with Dulera and Spiriva. She is also been using rescue inhaler multiple times a day. At this point the patient does have wheezing on examination appears to have an asthma flare. She is going to need prednisone. 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 Therefore, I did provide her a letter for her to minimize exposure specially while she is recovering from this asthma flare-up. She knows to have a blood work in addition to her PFTs in order to see if we can get her on biologic therapy. She is already tried and failed multiple biologics therefore she is a little reluctant. I do believe that Tezspire will be a good option. 03/04/2023 the patient is here for a pulmonary follow-up visit. She has a hard time with the breathing. She has had multiple sick visits because of worsening asthma exacerbations. She is required prednisone now multiple times as well. She is still on a prednisone taper down to 30 mg. She also continues with respiratory medications although her Dulera was not refilled. I will make sure to send her all the medications the pharmacy as she needs to be able to continue with good adherence. In the meantime she was approved for test prior. Although, she lives in [place] and is very hard for her to get here. Therefore I did talk to our nursing staff and will going to see about switching her Tezspire to a home administration. Once she gets the medication at home if is approved then she will call the office for us to set up a 1 time visit for teaching. In the meantime I did set her additional prednisone. This is to slow down her prednisone tapers she can decrease down to 10 an [id number] so therefore she does not have another flare-up before her test prior injection. 07/01/2023 the patient is here for a pulmonary follow-up visit. She is doing fairly well. She does respond well to the Dulera and Spiriva. She has also been taking prednisone again. She started working outside and she started having a little flare up and she wanted to make sure that it improve so she did have to miss any work. She is working at a car wash. She has not exposed to the fumes or the chemicals because she is mainly outside. In the meantime she has responded well to the Tezspire. She has not been able to get it. Will go ahead and give her the information so she can call the pharmacy, [facility] in order to request delivery of the injections that she can continue the biologic therapy. The patient does have persistent severe asthma and therefore these biologic therapies will be crucial. She is going to monitor closely for any worsening eczema while on the Tezspire. In the meantime she is going to wean off her prednisone. 03/20/2024 the patient is here for a pulmonary follow-up visit. Overall she is doing okay. She started developing a flare-up of her asthma and eczema this weekend. She did go to urgent care and she got additional prednisone. She continues on her respiratory therapy. She is no longer doing biologics. At this point she has tried and failed the Dupixent and also tezspire. She is Xolair in the past but not sure why she stopped it. Will go ahead and request allergy testing and IgE levels to see if that is an option for her to try to minimize her steroids. At this point she has evidence of chronicity with asthma COPD overlap syndrome. She has significant chronic bronchitis and therefore she will be also a good candidat for Daliresp. Will send that to the pharmacy. She is aware of the adverse effects and she needs to take it slowly and develop tolerance. Should continue with respiratory therapy as well. Will follow-up in 4-6 months. If she has any issues prior to that she will call for an earlier assessment. [facility] Medical History (Updated 03/20/24 @ 10:23 by Emeka Khan MD) Asthma-COPD overlap syndrome Allergies Asthma exacerbation Atopic dermatitis Chronic allergic rhinitis Asthma Social History Patient Tobacco Use Status: Never used Tobacco Review of Systems Const Denies fatigue and Denies fever(s) Eyes Denies change in vision ENT Denies change in voice Card Denies chest pain and Reports dyspnea on exertion Resp Reports chest congestion, Reports cough, Reports dyspnea on exertion and Reports wheezing GI Reports no additional complaints Musc Reports no additional complaints Skin/Breast Reports rash Neuro Reports no additional complaints Endo Denies fatigue Bruno/Lymph Denies easy bruising and Denies lymphadenopathy Aller/Immun Reports urticaria, Reports seasonal rhinorrhea and Reports wheezing Physical Exam Vital Signs: Last Vital Signs Pulse 83 03/20/24 10:02 BP 114/60 03/20/24 10:02 Pulse Ox 97 03/20/24 10:02 Oxygen Delivery Method Room Air 03/20/24 10:02 BMI result Body Mass Index 33.8 Const General: comfortable HEENT General nose exam: Abnormal mucous membranes and turbinates present erythematous and Epistaxis present Eyes General: appearance normal, both eyes and all related structures Neck Neck: Yes supple Chest Chest palpation & inspection: normal inspection of the chest Resp Effort & Inspection: normal respiratory effort and prolonged expiratory phase Auscultation: no wheezes and diminished lung sounds Cardio Rate: regular rate Rhythm: regular rhythm Heart sounds: S1 normal heart sound present and S2 normal heart sound present GI Auscultation: normal bowel sounds Skin General skin exam: other ( Eczema) Extrem General: Yes no clubbing, cyanosis or edema Assessment & Plan Assessment & Plan (1) Asthma: Code(s): J45.909 - Unspecified asthma, uncomplicated Category: Medical Qualifiers: Asthma complication type: with acute exacerbation Asthma persistence: persistent Asthma severity: severe Qualified Code(s): J45.51 - Severe persistent asthma with (acute) exacerbation (2) Atopic dermatitis: Code(s): L20.9 - Atopic dermatitis, unspecified Category: Medical Qualifiers: Atopic dermatitis type: flexural Qualified Code(s): L20.89 - Other atopic dermatitis (3) Allergies: Code(s): T78.40XA - Allergy, unspecified, initial encounter Category: Medical (4) Asthma-COPD overlap syndrome: Code(s): J44.89 - Other specified chronic obstructive pulmonary disease Category: Medical Plan continue Dulera and Spiriva short-acting beta agonist as needed stopped Tezspire, consider Xolair start Daliresp bloodwork/allergy testing continue Prednisone taper Follow-up in 4 months Orders: Orders Complete Blood Count Auto Diff Today J30.9 - Allergic rhinitis, unspecified, J45.51 - Severe persistent asthma with (acute) exacerbation, L20.89 - Other atopic dermatitis, T78.40XA - Allergy, unspecified, initial encounter Immunoglobulin E Today J30.9 - Allergic rhinitis, unspecified, J45.51 - Severe persistent asthma with (acute) exacerbation, L20.89 - Other atopic dermatitis, T78.40XA - Allergy, unspecified, initial encounter Hypersensitive Pneumonitis Prf Today J30.9 - Allergic rhinitis, unspecified, J45.51 - Severe persistent asthma with (acute) exacerbation, L20.89 - Other atopic dermatitis, R91.8 - Other nonspecific abnormal finding of lung field, T78.40XA - Allergy, unspecified, initial encounter Resp Allergy Profile Region I Today J30.9 - Allergic rhinitis, unspecified, J45.51 - Severe persistent asthma with (acute) exacerbation, L20.89 - Other atopic dermatitis, R91.1 - Solitary pulmonary nodule, T78.40XA - Allergy, unspecified, initial encounter Medications: New roflumilast (Daliresp) 500 mcg PO DAILY 30 tabs 11RF 30 days J44.89 - Other specified chronic obstructive pulmonary disease prednisone PO daily; Take 6 tabs daily x 3 days, then 5 tabs x 3 days, then 4 tabs x 3 days, then 3 tabs x 3 days, then 2 tabs daily x 3 days, then 1 tab x 3 days to complete. 63 tabs 0RF 18 days Coding Level of Care Code Est Pt Level 4 (13999) Diagnoses Severe persistent asthma with acute exacerbation J45.51 Asthma complication type: with acute exacerbation Asthma persistence: persistent Asthma severity: severe Flexural atopic dermatitis L20.89 Atopic dermatitis type: flexural Allergies T78.40XA Asthma-COPD overlap syndrome J44.89 Time Spent (min) 16
[2024-03-20 10:02] VITALS: BP 114/60; PULSE 83; O2SAT 97; BMI 33.8
--- OUTSIDE RECORDS SUMMARY | 2024-03-20 10:41 | XMS_ITS | Encounter Summary ---
Author Organization [facility] Address [address] [place] [address] Phone Care Team Providers Care Curb Hop Name Role Phone Eunice Nix MD Primary Care Provider [phone] Encounter Details Date Type Department Care Team (Late st Contact Info) Description 09/03/2016 Documentation [facility] [place] [facility] [address] [place] [address] Family Medicine, Physician [address] [place], [place] [id number] Social History Tobacco Use Types Packs/Day Years Used Date Smoking Tobacco: Never Comments:Never smoker Comments Unknown Sex and Gender Information Value Date Recorded Sex Assigned at Female 12/28/2018 3:18 PM EST Legal Sex Female 5:12 PM EDT Gender Identity Female 12/28/2018 3:18 PM EST Sexual Orientation Straight 12/28/2018 3: 18 PM EST documented as of this encounter Plan of Treatment Not on file documented as of this encounter Visit Diagnoses Not on filedocumented in this encounter Care Teams Curb Hop Relationship Specialty Start Date End Date Eunice Nix MD [address] [place] [address] PCP - General Pediatrics 08/14/17 09/15/23 documented as of this encounter
--- OUTSIDE RECORDS SUMMARY | 2024-03-20 10:41 | XMS_ITS | Encounter Summary ---
Author Organization [facility] Address [address] [place] [address] Phone Care Team Providers Care Director Personal Name Role Phone Eunice Nix MD Primary Care Provider [phone] Reason for Visit * Reason Comments Med Refill Encounter Details Date Type Department Care Team (Late st Contact Info) Description 04/18/2021 Refill [facility] [address] [place] [address] uEnice Nix MD [address] [place] [address] Other depression; Anxiety Social History Tobacco Use Types Packs/Day Years Used Date Smoking Tobacco: Never Smokeless Tobacco: Never Comments:Never smoker Alcohol Use Standard Drinks/Week Comments Yes 0 (1 standard drink = 0.6 oz pure alcohol) rare- special occasions with family only Hunger/Food Answer Date Recorded In the last 12 months, did y ou or your family ever eat less than you felt you should because there wasn't enough money for food? No 12/31/2019 Stable Housing Answer Date Recorded Are you worried that in the next 2 months you may not have stable housing? No 12/31/2019 Transportation Concerns Answer Date Rec orded In the last 12 months, have you or your family ever had to go without healthcare because you didn't have a way to get there? No 12/31/2019 Hazards in Home Answer Date Recorded Think about the place you li ve. Do you have problems with any of the following? Pests (mice or roaches), mold, no/not working smoke detectors, water leaks, no window guards. No 2019 Financing Utilities Answer Date Recorde d In the last 12 months, has t he electric, [employer], oil, or water [employer] threatened to shut off your services in your home? No 12/31/2019 Safety at Home Answer Date Recorded Are you or your family worried about feeling saf e in your home? No 12/31/2019 Outside Support Answer Date Recorded Do you feel that you need mo re support from other people or programs to help you care for yourself or your family? No 12/31/2019 Understanding Health Concerns Answer Da te Recorded Do you need help understandi ng your or your child's healthcare needs (diagnosis, medications, plan, etc.)? No 12/31/2019 Financing Health Concerns Answer Date R ecorded In the last 12 months, was t here a time when your child needed to see a doctor or get medications or supplies but could not because of cost? No 12/31/2019 Missing School or Work Answer Date Jeffry rded Did you or your child miss s chool or work because of a health problem that could have been avoided? No 12/31/2019 Comments No Sex and Gender Information Value Date Recorded Sex Assigned at Female 12/28/2018 3:18 PM EST Legal Sex Female 5:12 PM EDT Gender Identity Female 12/28/2018 3:18 PM EST Sexual Orientation Straight 12/28/2018 3: 18 PM EST documented as of this encounter Miscellaneous Notes * Telephone Encounter - Liz Sims RN - 04/20/2021 11:27 AM EST Call placed to pt to verify need for script from pharm. Unable to leave d/t mailbox full. * Telephone Encounter - Eunice Nix MD - 04/20/2021 10:43 AM EST No-show to med check 04/03/21. Please call patient and find out if she's taking the fluoxetine and if she wants a refill prior to f/u appt on 04/27/21. Please ask her what happened that she didn't show to the appt with me on 04/03/21 and remind her that the f/u appts are important and I can't keep prescribing if she is not able tokeep her appts. * Telephone Encounter - Patricia Pike LPN - 04/18/2021 11:11 AM EST Pharm requesting refill fluoxetine 20 mg. EH documented in this encounter Plan of Treatment Not on file documented as of this encounter Visit Diagnoses Diagnosis Other depression Anxiety Anxiety state, unspecified documented in this encounter Care Teams Director Personal Relationship Specialty Start Date End Date Eunice Nix MD [address] [place] [address] PCP - General Pediatrics 08/14/17 09/15/23 documented as of this encounter
--- OUTSIDE RECORDS SUMMARY | 2024-03-20 10:41 | XMS_ITS | Encounter Summary ---
Author Organization [facility] Address [address] [place] [address] Phone Care Team Providers Care Celery Wrapper Name Role Phone Eunice Nix MD Primary Care Provider [phone] Reason for Visit * Reason Onset Date Comments Follow up asthma 11/15/2018 Encounter Details Date Type Department Care Team (Late st Contact Info) Description 11/15/2018 Patient Outreach [facility] [place] [address] [place] [address] Eunice Nix MD [address] [place] [address] Follow up asthma Social History Tobacco Use Types Packs/Day Years Used Date Smoking Tobacco: Never Smokeless Tobacco: Never Comments:Never smoker Alcohol Use Standard Drinks/Week Comments No 0 (1 standard drink = 0.6 oz pure alcohol) has had one alcoholic drink ever Hunger/Food Answer Date Recorded No 03/02/2018 Stable Housing Answer Date Recorded 0 03/02/2018 Transportation Concerns Answer Date Rec orded No 03/02/2018 Hazards in Home Answer Date Recorded No 03/02/2018 Financing Utilities Answer Date Recorde d Yes 03/02/2018 Safety at Home Answer Date Recorded No 03/02/2018 Outside Support Answer Date Recorded Yes 03/02/2018 Understanding Health Concerns Answer Da te Recorded Yes 03/02/2018 Financing Health Concerns Answer Date R ecorded No 03/02/2018 Missing School or Work Answer Date Jeffry rded Yes 03/02/2018 Comments No Sex and Gender Information Value [...] on filedocumented in this encounter Care Teams Celery Wrapper Relationship Specialty Start Date End Date Eunice Nix MD [address] [place] [address] PCP - General Pediatrics 08/14/17 09/15/23 documented as of this encounter
--- OUTSIDE RECORDS SUMMARY | 2024-03-20 10:41 | XMS_ITS | Encounter Summary ---
Author Organization [facility] Address [address] [place] [address] Phone Care Team Providers Care Burnt Lime Drawer Name Role Phone Eunice Nix MD Primary Care Provider [phone] Reason for Visit * Reason Onset Date Comments Schedule Home asthma visit 08/30/2018 Encounter Details Date Type Department Care Team (Late st Contact Info) Description 08/30/2018 Patient Outreach [facility] [address] [place] [address] Eunice Nix MD [address] [place] [address] Schedule Home asthma visit Social History Tobacco Use Types Packs/Day Years [...] on filedocumented in this encounter Care Teams Burnt Lime Drawer Relationship Specialty Start Date End Date Eunice Nix MD [address] [place] [address] PCP - General Pediatrics 08/14/17 09/15/23 documented as of this encounter
--- OUTSIDE RECORDS SUMMARY | 2024-03-20 10:41 | XMS_ITS | Encounter Summary ---
Author Organization [facility] Address [address] [place] [address] Phone Care Team Providers Care System Software Developer Name Role Phone Eunice Nix MD Primary Care Provider [phone] Reason for Visit * Reason Onset Date Comments home asthma visit 2018 Encounter Details Date Type Department Care Team (Late st Contact Info) Description 2018 Patient Outreach [facility] [place] [address] [place] [address] Eunice Nix MD [address] [place] [address] home asthma visit Social History Tobacco Use Types [...] on filedocumented in this encounter Care Teams System Software Developer Relationship Specialty Start Date End Date Eunice Nix MD [address] [place] [address] PCP - General Pediatrics 08/14/17 09/15/23 documented as of this encounter
--- OUTSIDE RECORDS SUMMARY | 2024-03-20 10:41 | XMS_ITS | Encounter Summary ---
Author Organization [facility] Address [address] [place] [address] Phone Care Team Providers Care Client Service Professional Name Role Phone Eunice Nix MD Primary Care Provider [phone] Encounter Details Date Type Department Care Team (Late st Contact Info) Description 05/31/2016 Documentation [facility] [place] [address] [place] [address] Family Medicine, Physician [address] [place] [address] Social History Tobacco Use Types Packs/Day Years Used Date Smoking Tobacco: Never Assessed Comments Unknown Sex and Gender Information Value [...] on filedocumented in this encounter Care Teams Client Service Professional Relationship Specialty Start Date End Date Eunice Nix MD [address] [place] [address] PCP - General Pediatrics 08/14/17 09/15/23 documented as of this encounter
--- OUTSIDE RECORDS SUMMARY | 2024-03-20 10:41 | XMS_ITS | Encounter Summary ---
Author Organization [facility] Address [address] [place] [address] Phone Care Team Providers Care Engineering Consultant Name Role Phone Eunice Nix MD Primary Care Provider [phone] Encounter Details Date Type Department Care Team (Late st Contact Info) Description 03/23/2016 Documentation [facility] [place] [address] [place] [address] Family Medicine, Physician [address] [place] [address] Social History Tobacco Use Types Packs/Day Years [...] on filedocumented in this encounter Care Teams Engineering Consultant Relationship Specialty Start Date End Date Eunice Nix MD [address] [place] [address] PCP - General Pediatrics 08/14/17 09/15/23 documented as of this encounter
--- OUTSIDE RECORDS SUMMARY | 2024-03-20 10:41 | XMS_ITS | Encounter Summary ---
Author Organization [facility] Address [address] [place] [address] Phone Care Team Providers Care Program Director Group Work Name Role Phone Eunice Nix MD Primary Care Provider [phone] Encounter Details Date Type Department Care Team (Late st Contact Info) Description 05/21/2016 Documentation [facility] [place] [address] [place] [address] Family Medicine, Physician [address] [place] [address] Social History Tobacco Use Types Packs/Day Years [...] on filedocumented in this encounter Care Teams Program Director Group Work Relationship Specialty Start Date End Date Eunice Nix MD [address] [place] [address] PCP - General Pediatrics 08/14/17 09/15/23 documented as of this encounter
--- OUTSIDE RECORDS SUMMARY | 2024-03-20 10:41 | XMS_ITS | Encounter Summary ---
Author Organization [facility] Address [address] [place] [address] Phone Care Team Providers Care General Surgeon Name Role Phone Eunice Nix MD Primary Care Provider [phone] Reason for Visit * Reason Onset Date Comments Schedule home asthma visit 08/16/2018 Encounter Details Date Type Department Care Team (Late st Contact Info) Description 08/16/2018 Patient Outreach [facility] [place] [address] [place] [address] Eunice Nix MD [address] [place] [address] Schedule home asthma visit Social History Tobacco Use [...] on filedocumented in this encounter Care Teams General Surgeon Relationship Specialty Start Date End Date Eunice Nix MD [address] [place] [address] PCP - General Pediatrics 08/14/17 09/15/23 documented as of this encounter
--- OUTSIDE RECORDS SUMMARY | 2024-03-20 10:41 | XMS_ITS | Encounter Summary ---
Author Organization [facility] Address [address] [place] [address] Phone Care Team Providers Care Adjunct Faculty For Medical Terminology Name Role Phone Eunice Nix MD Primary Care Provider [phone] Reason for Visit * Reason Comments Med Refill Encounter Details Date Type Department Care Team (Late st Contact Info) Description 08/01/2018 Refill [facility] - [address] [address] Johnna Seymour MD Severe persistent asthma without complication Social History Tobacco Use Types Packs/Day Years [...] encounter Miscellaneous Notes * Telephone Encounter - Johnna Grayson LPN - 08/02/2018 7:25 AM EDT Pt of [place]-Refill request for Proair. Last PE 12/01/17/SALENA documented in this encounter Plan of Treatment Not on file documented as of this encounter Visit Diagnoses Diagnosis Severe persistent asthma without complication documented in this encounter Care Teams Adjunct Faculty For Medical Terminology Relationship Specialty Start Date End Date Eunice Nix MD [address] [place] [address] PCP - General Pediatrics 08/14/17 09/15/23 documented as of this encounter
--- OUTSIDE RECORDS SUMMARY | 2024-03-20 10:41 | XMS_ITS | Encounter Summary ---
Author Organization [facility] Address [address] [place] [address] Phone Care Team Providers Care Air Gun Operator Name Role Phone Eunice Nix MD Primary Care Provider [phone] Reason for Visit * Reason Onset Date Comments Home Asthma Visit 09/12/2018 Encounter Details Date Type Department Care Team (Late st Contact Info) Description 09/12/2018 Patient Outreach [facility] [address] [place] [address] Eunice Nix MD [address] [place] [address] Home Asthma Visit Social History Tobacco Use Types Packs/Day Years [...] on filedocumented in this encounter Care Teams Air Gun Operator Relationship Specialty Start Date End Date Eunice Nix MD [address] [place] [address] PCP - General Pediatrics 08/14/17 09/15/23 documented as of this encounter
--- OUTSIDE RECORDS SUMMARY | 2024-03-20 10:41 | XMS_ITS | Encounter Summary ---
Author Organization [facility] Address [address] [place], [place] [id number] Phone Care Team Providers Care Metalizing Machine Operator Name Role Phone Eunice Nix MD Primary Care Provider [phone] Encounter Details Date Type Department Care Team (Late st Contact Info) Description 09/30/2016 Conversion Encounter [facility] [address] [place] [address] Social History Tobacco Use Types Packs/Day Years [...] on filedocumented in this encounter Care Teams Metalizing Machine Operator Relationship Specialty Start Date End Date Eunice Nix MD [address] [place] [address] PCP - General Pediatrics 08/14/17 09/15/23 documented as of this encounter
--- OUTSIDE RECORDS SUMMARY | 2024-03-20 10:41 | XMS_ITS | Encounter Summary ---
Author Organization [facility] Address [address] [place] [address] Phone Care Team Providers Care High School History Teacher Name Role Phone Eunice Nix MD Primary Care Provider [phone] Reason for Visit * Reason Onset Date Comments Schedule home asthma visit 08/29/2018 Encounter Details Date Type Department Care Team (Late st Contact Info) Description 08/29/2018 Patient Outreach [facility] [place] [address] [place] [address] Eunice Nix MD [address] [place] [address] Schedule home asthma visit Social History Tobacco [...] on filedocumented in this encounter Care Teams High School History Teacher Relationship Specialty Start Date End Date Eunice Nix MD [address] [place] [address] PCP - General Pediatrics 08/14/17 09/15/23 documented as of this encounter
--- OUTSIDE RECORDS SUMMARY | 2024-03-20 10:41 | XMS_ITS | Encounter Summary ---
Author Organization [facility] Address [address] [place] [address] Phone Care Team Providers Care Integrity Assessor Name Role Phone Eunice Nix MD Primary Care Provider [phone] Reason for Visit * Reason Onset Date Comments Follow Up Asthma 07/12/2018 Encounter Details Date Type Department Care Team (Late st Contact Info) Description 07/12/2018 Patient Outreach [facility] [place] [address] [place] [address] Eunice Nix MD [address] [place] [address] Follow Up Asthma Social History Tobacco Use Types Packs/Day Years [...] on filedocumented in this encounter Care Teams Integrity Assessor Relationship Specialty Start Date End Date Eunice Nix MD [address] [place] [address] PCP - General Pediatrics 08/14/17 09/15/23 documented as of this encounter
--- OUTSIDE RECORDS SUMMARY | 2024-03-20 10:41 | XMS_ITS | Encounter Summary ---
Author Organization [facility] Address [address] [place] [address] Phone Care Team Providers Care Self Propelled Hot Mix Roller Operator Name Role Phone Eunice Nix MD Primary Care Provider [phone] Encounter Details Date Type Department Care Team (Late st Contact Info) Description 12/08/2011 Documentation [facility] [place] Family Medicine [address] [place] [address] Family Medicine, Physician [address] [place], [place] [address] Social History Tobacco Use Types Packs/Day Years [...] on filedocumented in this encounter Care Teams Self Propelled Hot Mix Roller Operator Relationship Specialty Start Date End Date Eunice Nix MD [address] [place] [address] PCP - General Pediatrics 08/14/17 09/15/23 documented as of this encounter
--- OUTSIDE RECORDS SUMMARY | 2024-03-20 10:41 | XMS_ITS | Encounter Summary ---
Author Organization [facility] Address [address] [place] [address] Phone Care Team Providers Care Neonatal Critical Care Nurse Name Role Phone Eunice Nix MD Primary Care Provider [phone] Reason for Visit * Reason Comments Med Refill Encounter Details Date Type Department Care Team (Late st Contact Info) Description 05/28/2021 Refill [facility] [address] [place] [address] Clarisse Falcon MD [address] [place] [address] Intrinsic atopic dermatitis Social History Tobacco Use Types Packs/Day Years [...] last 12 months, has t he electric, gas, oil, or water company threatened to shut off your services in [...] encounter Miscellaneous Notes * Telephone Encounter - Janeth Galaviz LPN - 06/09/2021 9:47 AM EDT PA completed, awaiting response. * Telephone Encounter - Clarisse Falcon MD - 05/28/2021 7:28 PM EDT Janeth, can we do a prior auth on this? Per Trish, because face is involved and because she has been on multiple topical steroids with inadequate improvement. * Telephone Encounter - Jose Estrada LPN - 05/28/2021 2:29 PM EDT [facility] is contacting us due to protopic not being covered by insurance. documented in this encounter Plan of Treatment Not on file documented as of this encounter Visit Diagnoses Diagnosis Intrinsic atopic dermatitis documented in this encounter Care Teams Neonatal Critical Care Nurse Relationship Specialty Start Date End Date Eunice Nix MD [address] [place] [address] PCP - General Pediatrics 08/14/17 09/15/23 documented as of this encounter
--- OUTSIDE RECORDS SUMMARY | 2024-03-20 10:41 | XMS_ITS | Encounter Summary ---
Author Organization [facility] Address [address] [place] [address] Phone Care Team Providers Care Accounting Administrative Assistant Name Role Phone Eunice Nix MD Primary Care Provider [phone] Reason for Visit * Reason Onset Date Comments Schedule 3rd home asthma visit 07/17/2018 Encounter Details Date Type Department Care Team (Late st Contact Info) Description 07/17/2018 Patient Outreach [facility] [address] [place] [address] Eunice Nix MD [address] [place] [address] Schedule 3rd home asthma visit Social History Tobacco Use [...] on filedocumented in this encounter Care Teams Accounting Administrative Assistant Relationship Specialty Start Date End Date Eunice Nix MD [address] [place] [address] PCP - General Pediatrics 08/14/17 09/15/23 documented as of this encounter
--- OUTSIDE RECORDS SUMMARY | 2024-03-20 10:41 | XMS_ITS | Encounter Summary ---
Author Organization [facility] Address [address] [place] [address] Phone Care Team Providers Care Group Supervisor Yard Name Role Phone Eunice Nix MD Primary Care Provider [phone] Encounter Details Date Type Department Care Team (Late st Contact Info) Description 07/19/2016 Documentation [facility] Medicine [address] [place] [address] Family Medicine, Physician [address] [place], [place] [address] Social History Tobacco Use Types Packs/Day Years [...] on filedocumented in this encounter Care Teams Group Supervisor Yard Relationship Specialty Start Date End Date Eunice Nix MD [address] [place] [address] PCP - General Pediatrics 08/14/17 09/15/23 documented as of this encounter
--- OUTSIDE RECORDS SUMMARY | 2024-03-20 10:41 | XMS_ITS | Encounter Summary ---
Author Organization [facility] Address [address] [place] [address] Phone Care Team Providers Care Materials And Corrosion Engineer Name Role Phone Eunice Nix MD Primary Care Provider [phone] Reason for Visit * Reason Onset Date Comments Confirm Home Asthma Visit 09/07/2018 Encounter Details Date Type Department Care Team (Late st Contact Info) Description 09/07/2018 Patient Outreach [facility] [address] [place] [address] Enuice Nix MD [address] [place] [address] Confirm Home Asthma Visit Social History Tobacco Use [...] on filedocumented in this encounter Care Teams Materials And Corrosion Engineer Relationship Specialty Start Date End Date Eunice Nix MD [address] [place] [address] PCP - General Pediatrics 08/14/17 09/15/23 documented as of this encounter
--- OUTSIDE RECORDS SUMMARY | 2024-03-20 10:42 | XMS_ITS | Encounter Summary ---
Author Organization [facility] Address [address] [place] [address] Phone Care Team Providers Care Oracle Financials Developer Name Role Phone Eunice Nix MD Primary Care Provider [phone] Encounter Details Date Type Department Care Team (Late st Contact Info) Description 10/03/[address] [facility] [address] [place] [address] Eunice Nix MD [address] [place] [address] Social History Tobacco Use Types Packs/Day Years Used Date Smoking Tobacco: Never Smokeless Tobacco: Never Comments:Never smoker Alcohol Use Standard Drinks/Week Comments No 0 (1 standard drink = 0.6 oz pur e alcohol) Comments No Sex and Gender Information Value [...] on filedocumented in this encounter Care Teams Oracle Financials Developer Relationship Specialty Start Date End Date Eunice Nix MD [address] [place] [address] PCP - General Pediatrics 08/14/17 09/15/23 documented as of this encounter
--- OUTSIDE RECORDS SUMMARY | 2024-03-20 10:42 | XMS_ITS ---
Author Name [facility] Unknown History of Medication Use Medication Directions Dispensed Refills Start Date End Date Stat inhaler,assist device,lg mask (AEROCHAMBER MASK LARGE MISC) See Instructions, # 1 each, Refills 1, Tot. Refills 1, Maintenance, use with inhaler, 05/06/21 10:26:00 EDT, Supply, 149.7, cm, 05/06/21 9:15:00 EDT, Height, 69.6, kg, 05/06/21 9:15:00 EDT, Dry Weight 05/06/2021 active fluticasone propion-salmeteroL (ADVAIR) 500-50 mcg/dose Disk with Device See Instructions, TAKE 2 SPRAYS IN EACH NOSTRIL TWICE DAILY, # 16 mL, 5 Refills, 05/06/21 10:25:00 EDT, [id number], 30, TAKE 2 SPRAYS IN EACH NOSTRIL TWICE DAILY, 149.7, cm, 05/06/21 9:15:00 EDT, Height, 69.6, kg, 05/06/21 9:15:00 EDT, Dry Weight 05/06/2021 active montelukast (SINGULAIR) 10 mg tablet Take by mouth 05/06/2021 active Problems Problem Status Onset Date Problem Type Date of Resoluti on Source Arthritis active EncounterDiagnosisAct [facility]
--- OUTSIDE RECORDS SUMMARY | 2024-03-20 10:42 | XMS_ITS | Encounter Summary ---
Author Organization [facility] Address [address] [place] [address] Phone Care Team Providers Care Street Sweeper Name Role Phone Eunice Nix MD Primary Care Provider [phone] Encounter Details Date Type Department Care Team (Late st Contact Info) Description 11/04/2017 Patient Outreach [facility] [address] [place] [address] Eunice Nix MD [address] [place] [address] Social History Tobacco Use Types Packs/Day Years [...] on filedocumented in this encounter Care Teams Street Sweeper Relationship Specialty Start Date End Date Eunice Nix MD [address] [place] [address] PCP - General Pediatrics 08/14/17 09/15/23 documented as of this encounter
--- OUTSIDE RECORDS SUMMARY | 2024-03-20 10:42 | XMS_ITS | Encounter Summary ---
Author Organization [facility] Address [address] [place] [address] Phone Care Team Providers Care Parking Assistant Name Role Phone Eunice Nix MD Primary Care Provider [phone] Encounter Details Date Type Department Care Team (Late st Contact Info) Description 05/08/2014 Documentation [facility] [place] [address] [place] [address] Family Medicine, Physician [address] [place] [address] Social History Tobacco Use Types Packs/Day Years [...] on filedocumented in this encounter Care Teams Parking Assistant Relationship Specialty Start Date End Date Eunice Nix MD [address] [place] [address] PCP - General Pediatrics 08/14/17 09/15/23 documented as of this encounter
--- OUTSIDE RECORDS SUMMARY | 2024-03-20 10:42 | XMS_ITS | Encounter Summary ---
Author Organization [facility] Address [address] [place] [address] Phone Care Team Providers Care Beehive Kiln Charcoal Burner Name Role Phone Eunice Nix MD Primary Care Provider [phone] Encounter Details Date Type Department Care Team (Late st Contact Info) Description 09/21/2017 Patient Outreach [facility] [address] [place] [address] Eunice Nix MD [address] [place] [address] Social History Tobacco Use Types Packs/Day Years [...] on filedocumented in this encounter Care Teams Beehive Kiln Charcoal Burner Relationship Specialty Start Date End Date Eunice Nix MD [address] [place] [address] PCP - General Pediatrics 08/14/17 09/15/23 documented as of this encounter
--- OUTSIDE RECORDS SUMMARY | 2024-03-20 10:42 | XMS_ITS | Encounter Summary ---
Author Organization [facility] Address [address] [place] [address] Phone Care Team Providers Care Shipping Processor Name Role Phone Eunice Nix MD Primary Care Provider [phone] Reason for Visit * Reason Onset Date Comments Home Asthma Visit 06/14/2018 Encounter Details Date Type Department Care Team (Late st Contact Info) Description 06/14/2018 Patient Outreach [facility] [place] [address] [place] [address] Eunice Nix MD [address] [place] [address] Home Asthma Visit Social History Tobacco Use [...] on filedocumented in this encounter Care Teams Shipping Processor Relationship Specialty Start Date End Date Eunice Nix MD [address] [place] [address] PCP - General Pediatrics 08/14/17 09/15/23 documented as of this encounter
--- OUTSIDE RECORDS SUMMARY | 2024-03-20 10:42 | XMS_ITS | Encounter Summary ---
Author Organization [facility] Address [address] [place] [address] Phone Care Team Providers Care Metaphysician Name Role Phone Eunice Nix MD Primary Care Provider [phone] Encounter Details Date Type Department Care Team (Late st Contact Info) Description 08/29/2018 Patient Outreach [facility] [address] [place] [address] Eunice Nix MD [address] [place] [address] Social History Tobacco Use Types Packs/Day Years [...] on filedocumented in this encounter Care Teams Metaphysician Relationship Specialty Start Date End Date Eunice Nix MD [address] [place] [address] PCP - General Pediatrics 08/14/17 09/15/23 documented as of this encounter
--- OUTSIDE RECORDS SUMMARY | 2024-03-20 10:42 | XMS_ITS | Encounter Summary ---
Author Organization [facility] Address [address] [place] [address] Phone Care Team Providers Care Technical Professional Name Role Phone Eunice Nix MD Primary Care Provider [phone] Reason for Visit * Reason Comments Med Refill Encounter Details Date Type Department Care Team (Late st Contact Info) Description 07/03/2018 Refill [facility] - [address] [address] Johnna Seymour MD Severe persistent asthma without [...] encounter Miscellaneous Notes * Telephone Encounter - Margoth Pratt MA - 07/13/2018 9:44 AM EDT Left message with family to see if script is needed. They recently had a refill and a refill on albuterol solution. documented in this encounter Plan of Treatment Not on file documented as of this encounter Visit Diagnoses Diagnosis Severe persistent asthma without complication documented in this encounter Care Teams Technical Professional Relationship Specialty Start Date End Date Eunice Nix MD [address] [place] [address] PCP - General Pediatrics 08/14/17 09/15/23 documented as of this encounter
--- OUTSIDE RECORDS SUMMARY | 2024-03-20 10:42 | XMS_ITS | Encounter Summary ---
Author Organization [facility] Address [address] [place] [address] Phone Care Team Providers Care Grain Buyer Name Role Phone Eunice Nix MD Primary Care Provider [phone] Encounter Details Date Type Department Care Team (Late st Contact Info) Description 10/24/2015 Documentation [facility] [place] [address] [place] [address] Family Medicine, Physician [address] [place], [place] [address] Social History Tobacco Use Types Packs/Day Years [...] on filedocumented in this encounter Care Teams Grain Buyer Relationship Specialty Start Date End Date Eunice Nix MD [address] [place] [address] PCP - General Pediatrics 08/14/17 09/15/23 documented as of this encounter
--- OUTSIDE RECORDS SUMMARY | 2024-03-20 10:42 | XMS_ITS | Encounter Summary ---
Author Organization [facility] Address [address] [place] [address] Phone Care Team Providers Care Marketing Program Coordinator Name Role Phone Eunice Nix MD Primary Care Provider [phone] Encounter Details Date Type Department Care Team (Late st Contact Info) Description 04/19/2016 Documentation [facility] [place] [place] [address] [place] [address] Family Medicine, Physician [address] [place] [address] Social History Tobacco Use Types Packs/Day Years [...] on filedocumented in this encounter Care Teams Marketing Program Coordinator Relationship Specialty Start Date End Date Eunice Nix MD [address] [place] [address] PCP - General Pediatrics 08/14/17 09/15/23 documented as of this encounter
--- OUTSIDE RECORDS SUMMARY | 2024-03-20 10:42 | XMS_ITS | Clinical Summary ---
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 for allergies. Albuterol prn. Has what appears to be mild flare at the moment, with normal exam and excellent O2sat 4 hours after last albuterol tx. However, will need PO steroids for current exacerbation, given history of severe persistent asthma with severe exacerbations. Prednisone 60 mg daily x 5 days. Follow up with pulm or here if not improving significantly or if symptoms worsen/persist. Assessment & Plan (12/31/2019 9:44 AM EST): Has appt with [facility] pulm on Tue. Compliance is good last exacerbation was a couple months ago. Wheezing today, advised to start her albuterol. Assessment & Plan (07/06/2019 3:32 PM EDT): Having an asthma exacerbation, though it actually sounds like she is now doing better. Advised to call Dr. Estevez to let him know she never got the Airduo, also ask if she needs more steroids, though given she is doing better today, that is unlikely. Advised to increase Flovent to 2 puffs bid per previous note by Dr. Estevez. Also advised to be using 6 puffs of the albuterol q4hr prn when ill. Rx done for albuterol MDI as has run out of this. Should call if not continuing to improve or worsening. Assessment & Plan (04/04/2019 1:34 PM EST): Just discharged last week and had 5 day burst of pred; still wheezing; on preventives; don't want to do more pred given eczema flare once stopped; so call placed to Dr. Ornelas who's covering; see below Assessment & Plan (12/28/2018 2:59 PM EST): Given significant use of albuterol at home (though only very slight wheeze on exam and it is ~7 hours after her last albuterol), will start 5 day burst of prednisone. She is aware to call Dr. Estevez early next week if no better. AAP completed today and provided to patient. Assessment & Plan (09/29/2018 5:12 PM EDT): Generally doing much better on Dupixent (dupilumab) but having exacerbations at work triggered by heat. Wrote letter for her to discontinue working in her current position. She should seek indoor work opportunities. Recommend following up with patient access manager due to poor rescue inhaler response and exacerbations at work. Assessment & Plan (12/01/2017 1:47 PM EDT): ACT today is 21. Last pulm visit 11/22/17, no changes to meds. Had home assessment 10/01, which patient said was helpful. Has a current AAP. Assessment & Plan (07/18/2017 1:39 PM EDT): Having another exacerbation, will start pred 60mg PO qday x5 days. They don't want first dose now as she hasn't eaten lunch, so will start later today. Recommend albuterol 6 puffs (always with spacer!) every 4-6 hours for the next couple of days. Discussed return precautions at length. Will f/u for a re-check in 3 days, get seen sooner if worsens. Can cancel appt in 3 days if totally better. Has f/u with pulm at [facility] shortly per mom. Discussed with CC and mom who is interested in the home asthma program. Mom to call Aaliyah tomorrow to set this up (mom is staying with a friend and looking at apartments, so will likely want done once she secures housing). Doesn't have spacer at school, will prescribe this today. Continue all controller meds as prescribed. Assessment & Plan (01/12/2017 4:52 PM EST): Shanta is much improved after her asthma exacerbation recently requiring a short course of prednisone. She is back on her baseline meds. We reviewed that fall is usually her worst time of year with ER visits and hospitalizations and how great that this year she has not had any ER visits or hospitalizations. We discussed that it seems to be the monthly nucala injections is the one thing that seems to be making the difference. Continue on all your daily asthma meds I renewed your proair rx with one for home and one for school and a school med form. I renewed your Dulera as requested. I also did a note for school to see if you could change in a different room and then be able to participate in gym and cheerleading as tolerated. Assessment & Plan (11/24/2016 8:35 PM EDT): Shanta looks wonderful today! Her lungs are clear and she has not had to use any albuterol in quite awhile She continues to see Dr. Judd for allergy/asthma management and they think she may be doing better as the Nucala may finally be working She will continue on her daily preventive meds - zilueton twice a day, Dulera twice a day, Flovent twice a day, and Nucala injections monthly She had her flu vaccine already. Allergy 08/04/2011 Overview (11/10/2021): Has significant allergies which trigger her asthma. Positive skin testing to dust mites, tree, grass, weeds, mold, cat, dog. Has allergy to tree nuts and banana, though likely OAS. On daily zyrtec, intranasal steroid. S/p zileuton 600 mg bid. Failed Xolair trail 2014 - no signif improvement, did better with Nucala injections, but still had flares and missed appts. Last visit with [facility], Dr. Nunez 02/21/19- allergies are likely OAS due to pollen, but still avoiding due to family concern. Has transitioned from Dupixent (sig SE of conjunctivities) to Fasenra, continue tree nut and banana nut avoidance for now, consider re-eval for food allergies (mom deferred), consider restarting allergy immunotherapy, zyrtec prn, alaway optic, eucrisa prn, aggressive emollient. F/u 3mos. 11/05- [facility] pulm recommended stopping cetrizine, continue Flonase, Singulair. Assessment & Plan (12/31/2019 9:18 AM EST): Patient is supposed to make appt with Dr. Judd, will give them call. Gets Fasenra monthly. Assessment & Plan (12/28/2018 2:42 PM EST): Discussed intranasal steroid, which she is open to, so will prescribe today. Stopped the Dupixent due to SEs. Next appt with Dr. Judd should be next month. Assessment & Plan (12/01/2017 1:48 PM EDT): Zyrtec and Alloway, no concerns. Assessment & Plan (11/24/2016 2:34 PM EDT): You are doing well on your allergy meds Cont your daily cetirizine New prescription for your eye drops given Intrinsic atopic dermatitis 01/27/2009 Overview (03/16/2021): Was followed by derm, not since age ~15. Fluff + triamcinolone ointment 0.1%. 03/07: Doing better with hydroxyzine qhs and betamethasone topical. Assessment & Plan (05/11/2022 12:21 PM EDT): Continue Fluff , but needs stronger topical steroid for exacerbations (using triamcinolone 0.1% ointment), rx for betamethasone 0.05% ointment. Referred to derm for ongoing care of severe eczema (she will make appt and let us know when it is). Assessment & Plan (01/15/2022 12:03 PM EST): Looks bad, use cerave and triamcinolone twice a day, and zyrtec twice a day for itch Assessment & Plan (05/28/2021 10:20 AM EDT): Continue fluff BID. Continue antihistamines - zyrtec, hydroxyzine. Bleach baths once a week. Tacrolimus BID to problem areas. Use all fragrance free products. Assessment & Plan (03/16/2021 1:15 PM EST): Doing better with hydroxyzine qhs and betamethasone topical. Assessment & Plan (02/26/2021 11:13 AM EST): Still with bad eczema, very itchy, scratching at night. Advised to take her hydroxyzine every night. Already does sensitive skin care as this is a chronic issue for her. Will prescribe clobetasol to use for up to 2 weeks at a time for flares and refer to Trish. I also advised she call her shop blacksmith for f/u. Assessment & Plan (12/31/2019 9:45 AM EST): Still doing Fluff, but only helps to a certain extent. Continue Fluff. To start triamcinolone 0.1% ointment again for hot spots. Advised needs to be seen if needing this for more than 14 days consistently. Will schedule with Trish if she wants as well. Assessment & Plan (01/22/2019 3:20 PM EST): Running out of triamcinolone 0.1% ointment due to using it daily. Will re-order today in larger tube, but will also have her come back to see Trish to see if we can optimize her eczema treatment. Assessment & Plan (01/01/2019 4:57 PM EST): Getting better with fluff and triamcinolon 0.1% ointment for problem areas. Assessment & Plan (12/28/2018 2:40 PM EST): Discussed skin care again (continue mild soap like Dove Sensitive Skin, change to daily moisturizer like CeraVe or Cetaphil), no fragrance in detergent, no fabric softener. Triamcinolone 0.1% ointment prescribed for active areas. Fluff prescribed for daily use. Assessment & Plan (12/01/2017 2:14 PM EDT): Recommended CeraVe instead of Dove lotion. Also to avoid metals as appears to have an allergy- areas are where necklace hits her and earrings are. Resolved Problems Problem Noted Date Diagnosed Date Resolved Date Personal history of COVID-19 10/21/2021 05/11/2022 Overview (10/21/2021): 08/2021 Failed vision screen 05/17/2019 022 Overview (12/31/2019): Failed vision screen 01/02- referred to optometry, never saw an eye doctor, but passed 01/03. Assessment & Plan (12/31/2019 9:25 AM EST): Didn't fail today, will continue to follow. Can still see optometry if wishes. Postconcussive syndrome 01/01/201912/15 Overview (01/01/2019): Concussion 10/31/18 (hit head during a spinning ride at the [employer]). Assessment & Plan (01/22/2019 2:59 PM EST): Reports this is much better. Just getting occasional small HAs that feel more normal to her. Other symptoms have been gone 1-2 weeks ago. Has appt at [facility] on 01/26, may cancel it. Assessment & Plan (01/01/2019 5:12 PM EST): Continues with significant symptoms (THOMAS, dizziness, nausea). I referred to neuro last week, though will try for concussion clinic (closest is [facility] given this is not sports related). If that is not possible, [place] [facility]errals aware to do this JAY JAY. Will prescribe Zofran for before bed as her nausea is keeping her up at night. No changes in accommodations (JANNETH Care plan done 12/28/18- to do full school with rest breaks as needed), but she should let the school know if she needs more frequent breaks. Continue to encourage walking 10-20min per day. Discussed limiting screen time. I will see her back in a week, though they are aware they can cancel the appt if they are seen in a concussion clinic or neuro by then. Encounter for counseling for care management of patient with chronic conditions and complex health needs using nurse-based model 04/27/2014 06/23/2021 Immunizations Name Administration Dates Next Due COVID-19 Pfizer, monovalent, 12+ years 1,11/19/2020 COVID-19 Vaccine Moderna, se asonal, 12+ years 06/29/2023 DTaP 5 07/04/2006, 4,03/08/2002,01/10,2001 H1N1 02/23/2010 HPV Vaccine 9 Valent 11/24/2016,11/21/2015 Hep A, ped/adol 11/21/2015,10/30/2014 Hep B, ped/adol 06/12/2002,2001,2001 Hib (PRP-T) 01/23/2003, 3,01/10/2002,11/09 IPV 07/04/2006, 3,01/10/2002,11/09 Influenza Split 11/15/2012, 2,12/03/2010,01/19,10/14/2009 Influenza, injectable, quadrivalent 11/21/2015 Influenza, injectable, quadr ivalent, preservative free 06/29/2023,10/21/2021,11/19/2020,10/28,11/03/2018,12/01/2017,11/08/2016 ,10/30/2014,10/24/2013 MMR 07/04/2006,09/18/2002 Meningococcal B Trumenba 10/29/2019,12/28/2018 Meningococcal Conj (Menactra) MCV4P 12/01/2017,0 10/19/2012 Pneumococcal Conjugate 01/23/2003,2002,01/10/2002,11/09 Pneumococcal Polysaccharide 02/26/2021 Tdap 10/28/2021,10/19/2012 Varicella 07/04/2006,09/18/2002 Family History Medical History Relation Name Comments No Known Problems Brother Alfonso Doty No Known Problems Father Conner Doty Asthma Mother Annette Sharp Depression Mother Annette Sharp Relation Name Status Comments Brother Alfonso Doty Alive Brother: Alive and well Father Conner Doty Alive Father: Alive and well Mother Annette Sharp Alive Mother: Asthma Other No family histo ry of ADD/ADHD, No family history of Strabismus, No family history of Migraines, Family history of Cancer - stomach, Family history of Myocardial infarction, No family history of Seizure disorder, No family history of Deafness, No family history of Developmental dislocation of hip, No family history of Obesity, Family history of Hyperlipidemia, No family history of Diabetes mellitus, Family history of Asthma Social History Tobacco Use Types Packs/Day [...] there wasn't enough money for food? No 06/29/2023 Stable Housing Answer Date Recorded Are you worried that in the next 2 months you may not have stable housing? No 06/29/2023 Transportation Concerns Answer Date Rec orded In the last 12 months, have you or your family ever had to go without healthcare because you didn't have a way to get there? No 06/29/2023 Hazards in Home Answer Date Recorded Think about the place you li ve. Do you have problems with any of the following? Pests (mice or roaches), mold, no/not working smoke detectors, water leaks, no window guards. No 2023 Financing Utilities Answer Date Recorde d In the last 12 months, has t he electric, gas, oil, or water company threatened to shut off your services in your home? No 06/29/2023 Safety at Home Answer Date Recorded Are you or your family worried about feeling saf e in your home? No 06/29/2023 Outside Support Answer Date Recorded Do you feel that you need mo re support from other people or programs to help you care for yourself or your family? No 06/29/2023 Understanding Health Concerns Answer Da te Recorded Do you need help understandi ng your or your child's healthcare needs (diagnosis, medications, plan, etc.)? No 06/29/2023 Financing Health Concerns Answer Date R ecorded In the last 12 months, was t here a time when your child needed to see a doctor or get medications or supplies but could not because of cost? No 06/29/2023 Missing School or Work Answer Date Jeffry rded Did you or your child miss s chool or work because of a health problem that could have been avoided? No 06/29/2023 Child Education Answer Date Recorded Do you have concerns about y our/your child's learning or behavior in school, preschool, or daycare? No 06/29/2023 Comments No Sex and Gender Information Value Date Recorded Sex Assigned at Female 12/28/2018 3:18 PM EST Legal Sex Female 5:12 PM EDT Gender Identity Female 12/28/2018 3:18 PM EST Sexual Orientation Straight 12/28/2018 3: 18 PM EST Last Filed Vital Signs Vital Sign Reading Time Taken Comments Blood Pressure 93/63 06/29/2023 10:49 AM EDT Pulse 67 06/29/2023 10:49 AM EDT Temperature 36.3 ??C (97.4 ??F) 02/05/2022 8:38 AM ES T Respiratory Rate 20 04/03/2019 1:34 PM EST Oxygen Saturation 97% 01/15/2022 11:33 AM EST Inhaled Oxygen Concentration - - Weight 71.2 kg (157 lb) 06/29/2023 10:49 AM EDT Height 149.2 cm (4' 10.75 ) 06/29/2023 10:49 AM EDT Body Mass Index 31.98 06/29/2023 10:49 AM EDT Plan of Treatment Health Maintenance Due Date Last Done Comments Influenza Vaccines (#1) 2023 06/29/19 24, 10/21/2021, 11/19/2020, Additional history exists COVID-19 Vaccine (2023-2 5 season) 2023 06/29/2023, 12/10/2020, 11/19/2020 DTaP,Tdap,and Td Vaccines (8 - Td or Tdap) 10/29/2031 10/28/2021, 10/19/2012, 07/04/2006, Additional history exists Hepatitis B Vaccines Completed 06/12/2002, 2001, 2001 HIB Vaccines Completed 01/23/2003, 02/15, 01/10/2002, Additional history exists IPV Vaccines Completed 07/04/2006, 05/16, 01/10/2002, Additional history exists MMR Vaccines Completed 07/04/2006, 09/18/2002 Varicella Vaccines Completed 07/04/2006, 09/18/2002 Hepatitis A Vaccines Completed 11/21/2015, 10/31/19 15 HPV Vaccines Completed 11/24/2016, 11/21/2015 Meningococcal Vaccine Completed 12/01/2017, 013 Men B Vaccine Completed 10/29/2019, 12/28/2018 Pneumococcal Vaccine Completed 02/26/2021, 01/23/2003, 03/08/2002, Additional history exists Procedures * Due to [place] state law, this organization might not be sharing sensitive test results. Procedure Name Priority Date/Time Associated Diagnosis Comments CHLAMYDIA AND GONORRHEA, AMPLIFIED Routine 06/29/2023 11:57 AM EDT Encounter for screening examination for chlamydial infection from Last 3 Months or Most Recently Relevant to Health Maintenance Results * Due to [place] state law, this organization might not be sharing sensitive test results. * Chlamydia and Gonorrhoea, Amplified (06/29/2023 11:57 AM EDT) C trach FRANCK Negative Negative [facility] N gonorrhoeae FRANCK Negative Negative [facility] Urine (Urine) 06/29/2023 11: 57 AM EDT 06/29/2023 Comment:UR Narrative [facility] - 07/01/2023 12:06 AM EDT Performed at: ??01 - [facility] [address] ??[id number] Institutional Asset Manager: Zamzam Bejarano MD, Phone: ??[phone] us Eunice Nix MD LAB MICROBIOLOGY - GENERAL OR DERABLES Final Result [facility] [address] [place] [address] from Last 3 Months or Most Recently Relevant to Health Maintenance
--- OUTSIDE RECORDS SUMMARY | 2024-03-20 10:42 | XMS_ITS | Encounter Summary ---
Author Organization [facility] Address [address] [place] [address] Phone Care Team Providers Care Flat Folder Name Role Phone Eunice Nix MD Primary Care Provider [phone] Reason for Visit * Reason Onset Date Comments Home asthma visit 06/30/2018 Encounter Details Date Type Department Care Team (Late st Contact Info) Description 06/30/2018 Patient Outreach [facility] [place] [address] [place] [address] Eunice Nix MD [address] [place] [address] Home asthma visit Social History Tobacco Use [...] on filedocumented in this encounter Care Teams Flat Folder Relationship Specialty Start Date End Date Eunice Nix MD [address] [place] [address] PCP - General Pediatrics 08/14/17 09/15/23 documented as of this encounter
--- OUTSIDE RECORDS SUMMARY | 2024-03-20 10:42 | XMS_ITS | Encounter Summary ---
Author Organization [facility] Address [address] [place] [address] Phone Care Team Providers Care Communications Professor Name Role Phone Eunice Nix MD Primary Care Provider [phone] Reason for Visit * Reason Comments Med Refill Encounter Details Date Type Department Care Team (Late st Contact Info) Description 12/20/2020 Refill [facility] [place] [address] [place] [address] Eunice Nix MD [address] [place] [address] Hives Social History Tobacco Use Types Packs/Day Years Used Date Smoking Tobacco: Never Smokeless Tobacco: Never Comments:Never smoker Alcohol Use Standard Drinks/Week Comments No 0 (1 standard drink = 0.6 oz pure alcohol) has had one alcoholic drink ever Hunger/Food Answer Date Recorded In the last [...] Telephone Encounter - Margoth Pratt MA - 12/22/2020 11:43 AM EST Pharm refill for Hydroxyzine. Last med check was 08/2020. Missed the one in 09/2020. Well visit for February. Refer to 09/28/ phone note for refill. I will try and call pt to see what is up and to book a med check. Left VM on pt's cell. Went right to VM- mail box is full documented in this encounter Plan of Treatment Not on file documented as of this encounter Visit Diagnoses Diagnosis Hives Unspecified urticaria documented in this encounter Care Teams Communications Professor Relationship Specialty Start Date End Date Eunice Nix MD [address] [place] [id number] PCP - General Pediatrics 08/14/17 09/15/23 documented as of this encounter"
--- OUTSIDE RECORDS SUMMARY | 2024-03-20 10:42 | XMS_ITS | Encounter Summary ---
Author Organization [facility] Address [address] [place] [address] Phone Care Team Providers Care Recovery Advocate Name Role Phone Eunice Nix MD Primary Care Provider [phone] Encounter Details Date Type Department Care Team (Late st Contact Info) Description 09/07/2017 Patient Outreach [facility] [address] [place] [address] Eunice Nix MD [address] [place] [address] Social History Tobacco Use Types Packs/Day Years [...] on filedocumented in this encounter Care Teams Recovery Advocate Relationship Specialty Start Date End Date Eunice Nix MD [address] [place] [address] PCP - General Pediatrics 08/14/17 09/15/23 documented as of this encounter
--- OUTSIDE RECORDS SUMMARY | 2024-03-20 10:42 | XMS_ITS | Encounter Summary ---
Author Organization [facility] Address [address] [place] [address] Phone Care Team Providers Care Profiler Hand Name Role Phone Eunice Nix MD Primary Care Provider [phone] Reason for Visit * Reason Comments Med Refill Encounter Details Date Type Department Care Team (Late st Contact Info) Description 12/21/2016 Refill [facility] - [address] [address] Erlinda Valdez MD Social History Tobacco Use Types Packs/Day Years Used Date Smoking Tobacco: Never Smokeless Tobacco: Never Comments:Never smoker Alcohol Use Standard Drinks/Week Comments No 0 (1 standard drink = 0.6 oz pur e alcohol) Comments Unknown Sex and Gender Information Value Date Recorded Sex Assigned at Female 12/28/2018 3:18 PM EST Legal Sex Female 5:12 PM EDT Gender Identity Female 12/28/2018 3:18 PM EST Sexual Orientation Straight 12/28/2018 3: 18 PM EST documented as of this encounter Miscellaneous Notes * Telephone Encounter - Patricia Pike LPN - 12/28/2016 5:56 PM EST Pt seen in office EH * Telephone Encounter - Patricia Pike LPN - 12/22/2016 8:00 AM EST Pharm fax refill request Proair. Left VM asking mom to call. This was last filled 10/06/16 x 2. EH documented in this encounter Plan of Treatment Not on file documented as of this encounter Visit Diagnoses Not on filedocumented in this encounter Care Teams Profiler Hand Relationship Specialty Start Date End Date Eunice Nix MD [address] [place] [address] PCP - General Pediatrics 08/14/17 09/15/23 documented as of this encounter
--- OUTSIDE RECORDS SUMMARY | 2024-03-20 10:42 | XMS_ITS | Encounter Summary ---
Author Organization [facility] Address [address] [place] [address] Phone Care Team Providers Care Teacher Cclc Name Role Phone Eunice Nix MD Primary Care Provider [phone] Reason for Visit * Reason Onset Date Comments Schedule home asthma visit 08/23/2018 Encounter Details Date Type Department Care Team (Late st Contact Info) Description 08/23/2018 Patient Outreach [facility] [place] [address] [place] [address] Eunice Nix MD [address] [place] [address] Schedule home asthma visit Social History Tobacco [...] on filedocumented in this encounter Care Teams Teacher Cclc Relationship Specialty Start Date End Date Eunice Nix MD [address] [place] [address] PCP - General Pediatrics 08/14/17 09/15/23 documented as of this encounter
--- OUTSIDE RECORDS SUMMARY | 2024-03-20 10:42 | XMS_ITS | Encounter Summary ---
Author Organization [facility] Address [address] [place] [address] Phone Care Team Providers Care Abseiling Instructor Name Role Phone Eunice Nix MD Primary Care Provider [phone] Encounter Details Date Type Department Care Team (Late st Contact Info) Description 02/19/2014 Documentation [facility] [facility] [address] [place] [address] Family Medicine, Physician [address] [place] [address] Social History Tobacco Use Types Packs/Day Years [...] on filedocumented in this encounter Care Teams Abseiling Instructor Relationship Specialty Start Date End Date Eunice Nix MD [address] [place] [address] PCP - General Pediatrics 08/14/17 09/15/23 documented as of this encounter
--- OUTSIDE RECORDS SUMMARY | 2024-03-20 10:42 | XMS_ITS | Referral Summary ---
Author Organization [facility] Address [address] [place] [address] Care Team Providers Care Medication Technician Name Role Phone Eunice Nix MD Primary Care Provider [phone] Source Comments Please note that some or all of the patient's information could have additional privacy protections. State laws allow health care providers to render certain types of treatment to minors without parental consent. Please do not assume that this information can be shared solely by obtaining just the consent of the patient's parent/guardian. Please determine if all or part of the patient's care was rendered without parent/guardian involvement. And, if so, obtain the minor's consent prior to disclosure.[facility] Allergies Active Allergy Reactions Criticality Noted Date Comments Banana 10/29/2021 Cat Dander 10/29/2021 Grass 10/29/2021 Tree Nut 10/29/2021 Tree Nuts Medications inhaler,assist device,lg mask (AEROCHAMBER MASK LARGE MISC) See Instructions, # 1 each, Refills 1, Tot. Refills 1, Maintenance, use with inhaler, 05/06/21 10:26:00 EDT, Supply, 149.7, cm, 05/06/21 9:15:00 EDT, Height, 69.6, kg, 05/06/21 9:15:00 EDT, Dry Weight 2 Active cetirizine (ZYRTEC) 10 MG chewable tablet Take by mouth 2 Active mometasone-form oterol (DULERA) 200-5 mcg/actuation inhaler Inhale into the lungs 2 Active fluticasone propion-salmete roL (ADVAIR) 500-50 mcg/dose Disk with Device See Instructions, TAKE 2 SPRAYS IN EACH NOSTRIL TWICE DAILY, # 16 mL, 5 Refills, 05/06/21 10:25:00 EDT, [facility]/pharmacy #[id number], 30, TAKE 2 SPRAYS IN EACH NOSTRIL TWICE DAILY, 149.7, cm, 05/06/21 9:15:00 EDT, Height, 69.6, kg, 05/06/21 9:15:00 EDT, Dry Weight 2 Active montelukast (SINGULAIR) 10 mg tablet Take by mouth 2 Active albuterol (PROVENTIL HFA;VENTOLIN HFA) 90 mcg/actuation inhaler See Instructions, 2-6 puffs every 4 hours as needed for shortness of breath, cough or wheeze, # 1 each, Refills 2, Tot. Refills 2, 05/06/21 10:25:00 EDT, Instructions Replace Required Details, Route to Pharmacy Electronically, [id number] 2 Active tiotropium bromide 2.5 mcg/actuation Mist Inhale into the lungs 2 Active naproxen (NAPROSYN) 375 MG tablet Take 375 mg by mouth 2 (two) times daily with meals Active ibuprofen (MOTRIN) 200 MG tablet Take 400 mg by mouth every 8 (eight) hours as needed for Pain She stated she knows not to take Ibuprofen and Naprosyn together - uses one or other. Active Active Problems No known active problems Social History Tobacco Use Types Packs/Day Years Used Date Smoking Tobacco: Never Smokeless Tobacco: Never Other Needs Answer Date Recorded Anything else about your child you'd like help w [facility]? Not on file 10/29/2022 Share good news about positive changes: Not on f ile 10/29/2022 Comments No Sex and Gender Information Value Date Recorded Sex Assigned at Not on file Legal Sex Female 11:46 AM EDT Gender Identity Not on file Sexual Orientation Not on file Last Filed Vital Signs Vital Sign Reading Time Taken Comments Blood Pressure 111/69 10/29/2021 2:41 PM EDT Pulse 69 10/29/2021 2:41 PM EDT Temperature - - Respiratory Rate - - Oxygen Saturation - - Inhaled Oxygen Concentration - - Weight 70.3 kg (154 lb 15.7 oz) 10/29/2021 2:41 PM EDT Height 149.5 cm (4' 10.86 ) 10/29/2021 2:41 PM E DT Body Mass Index 31.45 10/29/2021 2:41 PM EDT Plan of Treatment Not on file Insurance [facility] [place] [id number] [facility] ([id number] ([email or web address] Care Teams Medication Technician Relationship Specialty Start Date End Date Eunice Nix MD [address] [place] [address] [place] [address] PCP - General General Pediatrics 10/21/21
--- OUTSIDE RECORDS SUMMARY | 2024-03-20 10:42 | XMS_ITS | Encounter Summary ---
Author Organization [facility] Address [address] [place] [address] Phone Care Team Providers Care Criminal Analyst Name Role Phone Eunice Nix MD Primary Care Provider [phone] Reason for Visit * Reason Onset Date Comments Schedule home asthma visit 06/13/2018 Encounter Details Date Type Department Care Team (Late st Contact Info) Description 06/13/2018 Patient Outreach [facility] [place] [address] [place] [address] Eunice Nix MD [address] [place] [address] Schedule home asthma visit Social History Tobacco [...] on filedocumented in this encounter Care Teams Criminal Analyst Relationship Specialty Start Date End Date Eunice Nix MD [address] [place] [address] PCP - General Pediatrics 08/14/17 09/15/23 documented as of this encounter
--- OUTSIDE RECORDS SUMMARY | 2024-03-20 10:42 | XMS_ITS | Encounter Summary ---
Author Organization [facility] Address [address] [place] [address] Phone Care Team Providers Care Instruction Assistant Principal Name Role Phone Eunice Nix MD Primary Care Provider [phone] Reason for Visit * Reason Comments Med Refill Encounter Details Date Type Department Care Team (Late st Contact Info) Description 12/21/2019 Refill [facility] [address] [place] [address] Eunice Nix MD [address] [place] [address] Intrinsic eczema Social History Tobacco Use Types Packs/Day Years Used Date Smoking Tobacco: Never Smokeless Tobacco: Never Comments:Never smoker Alcohol Use Standard Drinks/Week Comments No 0 (1 standard drink = 0.6 oz pure alcohol) has had one alcoholic drink ever Hunger/Food Answer Date Recorded Yes 11/10/2019 Stable Housing Answer Date Recorded No 11/10/2019 Transportation Concerns Answer Date Rec orded No 11/10/2019 Hazards in Home Answer Date Recorded No 11/27/2018 Financing Utilities Answer Date Recorde d Yes 11/27/2018 Safety at Home Answer Date Recorded No 11/27/2018 Outside Support Answer Date Recorded No 12/28/2018 Understanding Health Concerns Answer Da te Recorded No 12/28/2018 Financing Health Concerns Answer Date R ecorded Yes 12/28/2018 Missing School or Work Answer Date Jeffry rded Yes 11/27/2018 Comments No Sex and Gender Information Value Date Recorded Sex Assigned at Female 12/28/2018 3:18 PM EST Legal Sex Female 5:12 PM EDT Gender Identity Female 12/28/2018 3:18 PM EST Sexual Orientation Straight 12/28/2018 3: 18 PM EST documented as of this encounter Miscellaneous Notes * Telephone Encounter - Johnna Grayson LPN - 12/21/2019 8:40 AM EST Refill request from the pharmacy for triamcinolone but was reported that she isn't using anymore. Ileft a message to call to clarify/JOD documented in this encounter Plan of Treatment Not on file documented as of this encounter Visit Diagnoses Diagnosis Intrinsic eczema documented in this encounter Care Teams Instruction Assistant Principal Relationship Specialty Start Date End Date Eunice Nix MD [address] [place] [address] PCP - General Pediatrics 08/14/17 09/15/23 documented as of this encounter
--- OUTSIDE RECORDS SUMMARY | 2024-03-20 10:42 | XMS_ITS | Encounter Summary ---
Author Organization [facility] Address [address] [place] [address] Phone Care Team Providers Care Cytotechnologist Supervisor Name Role Phone Eunice Nix MD Primary Care Provider [phone] Encounter Details Date Type Department Care Team (Late st Contact Info) Description 10/05/2017 Patient Outreach [facility] [address] [place] [address] Eunice Nix MD [address] [place] [address] Social History Tobacco Use Types Packs/Day Years [...] on filedocumented in this encounter Care Teams Cytotechnologist Supervisor Relationship Specialty Start Date End Date Eunice Nix MD [address] [place] [address] PCP - General Pediatrics 08/14/17 09/15/23 documented as of this encounter
--- OUTSIDE RECORDS SUMMARY | 2024-03-20 10:42 | XMS_ITS | Encounter Summary ---
Author Organization [facility] Address [address] [place] [address] Phone Care Team Providers Care Cuff Cutter Name Role Phone Eunice Nix MD Primary Care Provider [phone] Encounter Details Date Type Department Care Team (Late st Contact Info) Description 01/21/2016 Documentation [facility] [facility] [address] [place] [address] Family Medicine, Physician [address] [place] [address] Social History Tobacco Use Types Packs/Day Years [...] on filedocumented in this encounter Care Teams Cuff Cutter Relationship Specialty Start Date End Date Eunice Nix MD [address] [place] [address] PCP - General Pediatrics 08/14/17 09/15/23 documented as of this encounter
--- OUTSIDE RECORDS SUMMARY | 2024-03-20 10:42 | XMS_ITS | Encounter Summary ---
Author Organization [facility] Address [address] [place], [place] [address] Phone Care Team Providers Care Fixed Income Trading Vice President Name Role Phone Eunice Nix MD Primary Care Provider Reason for Visit * Reason Comments Med Refill Encounter Details Date Type Department Care Team (Late st Contact Info) Description 04/15/2017 Refill [facility] [address] [place] [address] Jessica Estes MD [address] [place] [address] Intrinsic eczema (Primary Dx) Social History Tobacco Use Types Packs/Day Years [...] Telephone Encounter - Patricia Pike LPN - 04/15/2017 9:08 AM EST PC PCP LM: pharm fax refill request triamcinolone. This was ordered previously as fluff. EH documented in this encounter Plan of Treatment Not on file documented as of this encounter Visit Diagnoses Diagnosis Intrinsic eczema- Primary documented in this encounter Care Teams Fixed Income Trading Vice President Relationship Specialty Start Date End Date Eunice Nix MD [address] [place] [address] PCP - General Pediatrics 08/14/17 09/15/23 documented as of this encounter
--- OUTSIDE RECORDS SUMMARY | 2024-03-20 10:42 | XMS_ITS | Encounter Summary ---
Author Organization [facility] Address [address] [place] [address] Phone Care Team Providers Care Package Lift Operator Name Role Phone Eunice Nix MD Primary Care Provider [phone] Encounter Details Date Type Department Care Team (Late st Contact Info) Description 10/28/2017 Patient Outreach [facility] [address] [place] [address] Eunice Nix MD [address] [place] [address] Social History Tobacco Use Types Packs/Day Years [...] on filedocumented in this encounter Care Teams Package Lift Operator Relationship Specialty Start Date End Date Eunice Nix MD [address] [place] [address] PCP - General Pediatrics 08/14/17 09/15/23 documented as of this encounter
--- OUTSIDE RECORDS SUMMARY | 2024-03-20 10:42 | XMS_ITS | Clinical Summary ---
Author Organization [facility] Address [address] [place] [address] Care Team Providers Care Research Home Economist Name Role Phone Eunice Nix MD Primary Care Provider [phone] Source Comments Please note that some or [...] so, obtain the minor's consent prior to disclosure.[facility] Allergies Active Allergy Reactions Criticality Noted Date [...] 16 mL, 5 Refills, 05/06/21 10:25:00 EDT, [facility]/pharmacy #[id number], 30, TAKE 2 SPRAYS [...] Replace Required Details, Route to Pharmacy Electronically, [id number]... 2 Active tiotropium bromide 2.5 mcg/actuation [...] Active Active Problems No known active problems Family History Medical History Relation Name Comments Inflammatory bowel disease Neg Hx Juvenile idiopathic arthritis Neg Hx Rheum arthritis Neg Hx Rheumatologic disease Neg Hx Thyroid disease Neg Hx Social History Tobacco Use Types Packs/Day Years Used Date Smoking Tobacco: Never Smokeless Tobacco: Never Other Needs Answer Date Recorded Anything else about your child you'd like help w ith? Not on file 10/29/2022 Share good news [...] 10/29/2021 2:41 PM EDT Plan of Treatment Health Maintenance Due Date Last Done Comments DTaP/TDAP/TD VACCINES (1 - Tdap) 2008 ADOLESCENT HIV SCREENING 2014 COVID-19 Vaccine (2023-2 5 season) 2023 INFLUENZA (#1) 2023 NIRSEVIMAB VACCINES UNDER 8 MONTHS Aged Out No longer eligible based on patient's age to complete this topic Insurance [place] [id number] [facility] Car in the [employer] [facility] ([employer]) Care Teams Research Home Economist Relationship Specialty Start Date End Date Eunice Nix MD [address] [place] [address] [place] [address] PCP - General General Pediatrics 10/21/21
--- OUTSIDE RECORDS SUMMARY | 2024-03-20 10:42 | XMS_ITS | Clinical Summary ---
Author Organization [facility] Address [address] [place] [address] Care Team Providers Care Cut Out Machine Operator Name Role Phone Unavailable Primary Care Provider Unavailabl e Social History Tobacco Use Types Packs/Day Years Used Date Smoking Tobacco: Never Assessed Sex and Gender Information Value Date Recorded Sex Assigned at Not on file Gender Identity Not on file Sexual Orientation Not on file Plan of Treatment Health Maintenance Due Date Last Done Comments Gonorrhea/Chlamydia Screening 2001 Pneumococcal Vaccine: Pediat rics (0 to 5 Years) and At-Risk Patients (6 to 64 Years) (1 of 2 - PCV) 09/09/2007 HPV Vaccines (1 - 3-dose series) 2016 DTaP,Tdap,and Td Vaccines (1 - Tdap) 2020 Hepatitis B Vaccines (1 of 3 - 19+ 3-dose series) 2020 Cervical Cancer Screening: P ap Smear 2022 Depression Screening 09/16/2023 HIV Screening 09/16/2023 Hepatitis C Screening 09/16/2023 Social Influencers of Health Screening 09/16/2023 COVID-19 Vaccine (1 - 2023-2 5 season) 2023 Influenza Vaccine (#1) 2023 HIB Vaccines Aged Out No longer eligi ble based on patient's age to complete this topic Hepatitis A Vaccines Aged Out No long er eligible based on patient's age to complete this topic IPV Vaccines Aged Out No longer eligi ble based on patient's age to complete this topic MMR Vaccines Aged Out No longer eligi ble based on patient's age to complete this topic Meningococcal ACWY Vaccine Aged Out N o longer eligible based on patient's age to complete this topic RSV Immunization Patients Un atilio 20 months Aged Out No longer eligible b ased on patient's age to complete this topic Varicella Vaccines Aged Out No longer eligible based on patient's age to complete this topic
--- OUTSIDE RECORDS SUMMARY | 2024-03-20 10:42 | XMS_ITS | Encounter Summary ---
Author Organization [facility] Address [address] [place] [address] Phone Care Team Providers Care Interior Assemblies Developer Prover Name Role Phone Eunice Nix MD Primary Care Provider [phone] Reason for Visit * Reason Onset Date Comments Met with pt at pulmonary visit 06/15/2018 Encounter Details Date Type Department Care Team (Late st Contact Info) Description 06/15/2018 Patient Outreach [facility] [address] [place] [address] Eunice Nix MD [address] [place] [address] Met with pt at pulmonary visit Social History Tobacco Use Types Packs/Day [...] on filedocumented in this encounter Care Teams Interior Assemblies Developer Prover Relationship Specialty Start Date End Date Eunice Nix MD [address] [place] [address] PCP - General Pediatrics 08/14/17 09/15/23 documented as of this encounter
--- OUTSIDE RECORDS SUMMARY | 2024-03-20 10:42 | XMS_ITS | Encounter Summary ---
Author Organization [facility] Address [address] [place] [address] Phone Care Team Providers Care Medical Equipment Technician Name Role Phone Eunice Nix MD Primary Care Provider [phone] Encounter Details Date Type Department Care Team (Late st Contact Info) Description 08/08/2017 Patient Outreach [facility] [address] [place] [address] Erlinda Valdez MD Social History Tobacco Use [...] on filedocumented in this encounter Care Teams Medical Equipment Technician Relationship Specialty Start Date End Date Eunice Nix MD [address] [place] [address] PCP - General Pediatrics 08/14/17 09/15/23 documented as of this encounter
--- OUTSIDE RECORDS SUMMARY | 2024-03-20 10:42 | XMS_ITS | Encounter Summary ---
Author Organization [facility] Address [address] [place] [address] Phone Care Team Providers Care Manager Marketing Name Role Phone Eunice Nix MD Primary Care Provider [phone] Reason for Visit * Reason Comments Med Refill Encounter Details Date Type Department Care Team (Late st Contact Info) Description 08/18/2020 Refill [facility] [address] [place] [address] Eunice Nix MD [address] [place] [address] Intrinsic eczema Social History Tobacco Use Types [...] encounter Miscellaneous Notes * Telephone Encounter - Jose Estrada LPN - 08/19/2020 8:24 AM EDT [facility] is requesting a refill on triamcinolone cream. Last PE was 12/31/19. documented in this encounter Plan of Treatment Not on file documented as of this encounter Visit Diagnoses Diagnosis Intrinsic eczema documented in this encounter Care Teams Manager Marketing Relationship Specialty Start Date End Date Eunice Nix MD [address] [place] [address] PCP - General Pediatrics 08/14/17 09/15/23 documented as of this encounter
--- OUTSIDE RECORDS SUMMARY | 2024-03-20 10:42 | XMS_ITS | Encounter Summary ---
Author Organization [facility] Address [address] [place] [address] Phone Care Team Providers Care Bolt Loader Name Role Phone Eunice Nix MD Primary Care Provider Encounter Details Date Type Department Care Team (Late st Contact Info) Description 09/24/2014 Documentation [facility] [place] [facility] [address] [place] [address] Family Medicine, Physician [address] [place] [address] Social History Tobacco Use Types Packs/Day Years [...] on filedocumented in this encounter Care Teams Bolt Loader Relationship Specialty Start Date End Date Eunice Nix MD [address] [place] [address] PCP - General Pediatrics 08/14/17 09/15/23 documented as of this encounter
--- OUTSIDE RECORDS SUMMARY | 2024-03-20 10:42 | XMS_ITS | Encounter Summary ---
Author Organization [facility] Address [address] [place] [address] Phone Care Team Providers Care Sales Representative [employer] Furniture Name Role Phone Eunice Nix MD Primary Care Provider [phone] Reason for Visit * Reason Comments Med Refill Encounter Details Date Type Department Care Team (Late st Contact Info) Description 01/17/2020 Refill [facility] [address] [place] [address] Eunice Nix MD [address] [place] [address] Severe persistent asthma with acute exacerbation Social History Tobacco Use Types Packs/Day Years [...] Telephone Encounter - Johnna Grayson LPN - 01/17/2020 8:34 AM EST Refill refused for albuterol HFA. Received a prescription 07/06/19 with a refill. Shanta does have an appointment here today/SALENA documented in this encounter Plan of Treatment Not on file documented as of this encounter Visit Diagnoses Diagnosis Severe persistent asthma with acute exacerbation documented in this encounter Care Teams Sales Representative [employer] Relationship Specialty Start Date End Date Eunice Nix MD [address] [place] [address] PCP - General Pediatrics 08/14/17 09/15/23 documented as of this encounter
--- OUTSIDE RECORDS SUMMARY | 2024-03-20 10:42 | XMS_ITS | Encounter Summary ---
Author Organization [facility] Address [address] [place] [address] Phone Care Team Providers Care Center Line Cutter Operator Name Role Phone Eunice Nix MD Primary Care Provider [phone] Encounter Details Date Type Department Care Team (Late st Contact Info) Description 09/26/2017 Patient Outreach [facility] [address] [place] [address] Eunice Nix MD [address] [place] [address] Social History Tobacco Use Types Packs/Day Years [...] on filedocumented in this encounter Care Teams Center Line Cutter Operator Relationship Specialty Start Date End Date Eunice Nix MD [address] [place] [address] PCP - General Pediatrics 08/14/17 09/15/23 documented as of this encounter
--- OUTSIDE RECORDS SUMMARY | 2024-03-20 10:42 | XMS_ITS | Encounter Summary ---
Author Organization [facility] Address [address] [place] [address] Phone Care Team Providers Care Artist Suspect Name Role Phone Eunice Nix MD Primary Care Provider [phone] Reason for Visit * Reason Comments Med Refill Encounter Details Date Type Department Care Team (Late st Contact Info) Description 07/18/2022 Refill [facility] [address] [place] [address] Osmin Slaughter MD [address] [place] [address] Intrinsic atopic dermatitis; Severe persistent asthma with exacerbation Social History Tobacco Use Types Packs/Day [...] encounter Miscellaneous Notes * Telephone Encounter - Eunice Nix MD - 07/20/2022 7:05 AM EDT Patient is about to turn 22. Can you please call her and make sure she has found an adult PCP and scheduled her first well visitwith them? If not, please make sure she starts looking. * Telephone Encounter - Maura Richmond LPN - 07/19/2022 3:26 PM EDT Pharm requesting refill of certirizine and prednisone. Last PE 05/11/22. Prednisone refill request denied. documented in this encounter Plan of Treatment Not on file documented as of this encounter Visit Diagnoses Diagnosis Intrinsic atopic dermatitis Severe persistent asthma with exacerbation Unspecified asthma, with exacerbation documented in this encounter Care Teams Artist Suspect Relationship Specialty Start Date End Date Eunice Nix MD [address] [place] [address] PCP - General Pediatrics 08/14/17 09/15/23 documented as of this encounter
--- OUTSIDE RECORDS SUMMARY | 2024-03-20 10:42 | XMS_ITS | Encounter Summary ---
Author Organization [facility] Address [address] [place] [address] Phone Care Team Providers Care Cuff Setter Lockstitch Name Role Phone Eunice Nix MD Primary Care Provider [phone] Encounter Details Date Type Department Care Team (Late st Contact Info) Description 05/11/2013 Documentation [facility] [place] [address] [place] [address] Family Medicine, Physician [address] [place] [address] Social History Tobacco Use Types Packs/Day Years [...] filedocumented in this encounter Care Teams Cuff Setter Lockstitch Relationship Specialty Start Date End Date Eunice Nix MD [address] [place] [address] PCP - General Pediatrics 08/14/17 09/15/23 documented as of this encounter
--- OUTSIDE RECORDS SUMMARY | 2024-03-20 10:42 | XMS_ITS | Encounter Summary ---
Author Organization [facility] Address [address] [place] [address] Phone Care Team Providers Care K 9 Police Officer Name Role Phone Eunice Nix MD Primary Care Provider [phone] Reason for Visit * Reason Comments Med Refill Encounter Details Date Type Department Care Team (Late st Contact Info) Description 08/12/2017 Refill [facility] - [address] [address] Erlinda Valdez MD Severe persistent asthma, unspecified whether complicated (Primary Dx) Social History Tobacco Use Types [...] Telephone Encounter - Eunice Nix MD - 08/12/2017 5:06 PM EDT I will fill this with no refills this once, but it is normally written by [facility] (see Rachna Greene's phone note today), so in the future this should be referred to them. -AR * Telephone Encounter - Johnna Grayson LPN - 08/12/2017 3:19 PM EDT Former pt of LOC- Refill request for Z[place]on. Last PE 11/24/16/SALENA documented in this encounter Plan of Treatment Not on file documented as of this encounter Visit Diagnoses Diagnosis Severe persistent asthma, unspecified whether complicated- Primary documented in this encounter Care Teams K 9 Police Officer Relationship Specialty Start Date End Date Eunice Nix MD [address] [place] [address] PCP - General Pediatrics 08/14/17 09/15/23 documented as of this encounter
--- OUTSIDE RECORDS SUMMARY | 2024-03-20 10:42 | XMS_ITS | Encounter Summary ---
Author Organization [facility] Address [address] [place] [address] Phone Care Team Providers Care Expeditionary Force Combat Skills Name Role Phone Eunice Nix MD Primary Care Provider [phone] Reason for Visit * Reason Comments Med Refill Encounter Details Date Type Department Care Team (Late st Contact Info) Description 08/19/2019 Refill [facility] [place] [address] [place] [address] Eunice Nix MD [address] [place] [address] Dysmenorrhea in adolescent Social History Tobacco Use Types Packs/Day Years Used Date Smoking Tobacco: Never Smokeless Tobacco: Never Comments:Never smoker Alcohol Use Standard Drinks/Week Comments No 0 (1 standard drink = 0.6 oz pure alcohol) has had one alcoholic drink ever Hunger/Food Answer Date Recorded Yes 12/28/2018 Stable Housing Answer Date Recorded No 02/15/2019 Transportation Concerns Answer Date Rec orded No 11/27/2018 Hazards in Home Answer Date Recorded No [...] Telephone Encounter - Margoth Pratt MA - 08/27/2019 12:58 PM EDT Per pt, she is still taking the BC without any issues. Per note- would send if no issues. Pt aware to have mom call and schedule a PE. * Telephone Encounter - Nancy Raymond LPN - 08/27/2019 12:50 PM EDT I left a message on Shanta's phone to call back so I could ask her what Dr. Nix wanted to know. * Telephone Encounter - Jose Estrada LPN - 08/20/2019 10:16 AM EDT [facility]. Last PE 12/28/2018 documented in this encounter Plan of Treatment Not on file documented as of this encounter Visit Diagnoses Diagnosis Dysmenorrhea in adolescent documented in this encounter Care Teams Expeditionary Force Combat Skills Relationship Specialty Start Date End Date Eunice Nix MD [address] [place] [address] PCP - General Pediatrics 08/14/17 09/15/23 documented as of this encounter
--- OUTSIDE RECORDS SUMMARY | 2024-03-20 10:42 | XMS_ITS | Encounter Summary ---
Author Organization [facility] Address [address] [place] [address] Phone Care Team Providers Care Ostomy Care Nurse Name Role Phone Eunice Nix MD Primary Care Provider [phone] Encounter Details Date Type Department Care Team (Late st Contact Info) Description 09/02/2017 Patient Outreach [facility] [address] [place] [address] Eunice Nix MD [address] [place] [address] Social History Tobacco Use Types Packs/Day Years [...] on filedocumented in this encounter Care Teams Ostomy Care Nurse Relationship Specialty Start Date End Date Eunice Nix MD [address] [place] [address] PCP - General Pediatrics 08/14/17 09/15/23 documented as of this encounter
== END 2024-03-20 10:33 | disposition home or self-care (01) ==
PROVIDERS: PCP Internal Medicine; Visit Provider Hospitalist
DX: J45.51 Severe persistent asthma with (acute) exacerbation (principal); L20.89 Other atopic dermatitis; T78.40XA Allergy, unspecified, initial encounter; J44.89 Other specified chronic obstructive pulmonary disease
CPT/HCPCS: 99214

== ENCOUNTER 2024-03-20 09:58 | Outpatient (REF) | payer MEDICAID, SELFPAY ==
[2024-03-20 10:44] LABS: MANUAL DIFF FLAG NO
--- OUTSIDE RECORDS SUMMARY | 2024-03-20 11:30 | XMS_ITS | Encounter Summary ---
Author Organization [facility] Address [address] [place] [address] Phone Care Team Providers Care Oncology Research Rn Name Role Phone Eunice Nix MD Primary Care Provider [phone] Reason for Visit * Reason Onset Date Comments Follow up asthma 11/15/2018 Encounter Details Date Type Department Care Team (Late st Contact Info) Description 11/15/2018 Patient Outreach [facility] [place] [address] [place] [address] Eunice Nix MD [address] [place] [address] Follow up asthma Social History Tobacco Use [...] on filedocumented in this encounter Care Teams Oncology Research Rn Relationship Specialty Start Date End Date Eunice Nix MD [address] [place] [address] PCP - General Pediatrics 08/14/17 09/15/23 documented as of this encounter
--- OUTSIDE RECORDS SUMMARY | 2024-03-20 11:30 | XMS_ITS | Encounter Summary ---
Author Organization [facility] Address [address] [place] [address] Phone Care Team Providers Care Roll Cleaner Name Role Phone Eunice Nix MD Primary Care Provider [phone] Encounter Details Date Type Department Care Team (Late st Contact Info) Description 05/31/2016 Documentation [facility] [place] [address] [place] [address] Family Medicine, Physician [address] [place] [address] Social History Tobacco Use Types Packs/Day Years [...] on filedocumented in this encounter Care Teams Roll Cleaner Relationship Specialty Start Date End Date Eunice Nix MD [address] [place] [address] PCP - General Pediatrics 08/14/17 09/15/23 documented as of this encounter
--- OUTSIDE RECORDS SUMMARY | 2024-03-20 11:30 | XMS_ITS | Encounter Summary ---
Author Organization [facility] Address [address] [place] [address] Phone Care Team Providers Care Final Finisher Forging Dies Name Role Phone Eunice Nix MD Primary Care Provider [phone] Reason for Visit * Reason Onset Date Comments Schedule home asthma visit 08/16/2018 Encounter Details Date Type Department Care Team (Late st Contact Info) Description 08/16/2018 Patient Outreach [facility] [place] [address] [place] [address] Eunice Nix MD 150 [place] [address] Schedule home asthma visit Social History Tobacco [...] on filedocumented in this encounter Care Teams Final Finisher Forging Dies Relationship Specialty Start Date End Date Eunice Nix MD [address] [place] [address] PCP - General Pediatrics 08/14/17 09/15/23 documented as of this encounter
--- OUTSIDE RECORDS SUMMARY | 2024-03-20 11:30 | XMS_ITS | Encounter Summary ---
Author Organization [facility] Address [address] [place] [address] Phone Care Team Providers Care Residential Construction Instructor Name Role Phone Eunice Nix MD Primary Care Provider Reason for Visit * Reason Onset Date Comments Schedule home asthma visit 08/29/2018 Encounter Details Date Type Department Care Team (Late st Contact Info) Description 08/29/2018 Patient Outreach [facility] [place] [address] [place] [address] Eunice Nix MD 150 [place] [address] Schedule home asthma visit Social History Tobacco [...] on filedocumented in this encounter Care Teams Residential Construction Instructor Relationship Specialty Start Date End Date Eunice Nix MD 150 [place] [address] PCP - General Pediatrics 08/14/17 09/15/23 documented as of this encounter
--- OUTSIDE RECORDS SUMMARY | 2024-03-20 11:30 | XMS_ITS | Encounter Summary ---
Author Organization [facility] Address [address] [place] [address] Phone Care Team Providers Care Clinical Documentation Clerk Name Role Phone Eunice Nix MD Primary Care Provider [phone] Encounter Details Date Type Department Care Team (Late st Contact Info) Description 09/03/2016 Documentation [facility] [place] [address] [place] [address] Family Medicine, Physician [address] [place], [place] [address] Social History Tobacco Use Types Packs/Day Years [...] on filedocumented in this encounter Care Teams Clinical Documentation Clerk Relationship Specialty Start Date End Date Eunice Nix MD [address] [place] [address] PCP - General Pediatrics 08/14/17 09/15/23 documented as of this encounter
--- OUTSIDE RECORDS SUMMARY | 2024-03-20 11:30 | XMS_ITS | Encounter Summary ---
Author Organization [facility] Address [address] [place] [address] Phone Care Team Providers Care Plastic Installer Name Role Phone Eunice Nix MD Primary Care Provider [phone] Encounter Details Date Type Department Care Team (Late st Contact Info) Description 07/19/[address] [facility] [place] [address] [place] [address] Family Medicine, Physician [address] [place], [place] [address] Social History Tobacco Use Types Packs/Day Years [...] on filedocumented in this encounter Care Teams Plastic Installer Relationship Specialty Start Date End Date Eunice Nix MD [address] [place] [address] PCP - General Pediatrics 08/14/17 09/15/23 documented as of this encounter
--- OUTSIDE RECORDS SUMMARY | 2024-03-20 11:30 | XMS_ITS | Encounter Summary ---
Author Organization [facility] Address [address] [place] [address] Phone Care Team Providers Care Fuel Oil Truck Driver Name Role Phone Eunice Nix MD Primary Care Provider [phone] Encounter Details Date Type Department Care Team (Late st Contact Info) Description 05/21/2016 Documentation [facility] [place] [address] [place] [address] Family Medicine, Physician [address] [place] [address] Social History Tobacco Use Types Packs/Day Years [...] on filedocumented in this encounter Care Teams Fuel Oil Truck Driver Relationship Specialty Start Date End Date Eunice Nix MD [address] [place] [address] PCP - General Pediatrics 08/14/17 09/15/23 documented as of this encounter
--- OUTSIDE RECORDS SUMMARY | 2024-03-20 11:30 | XMS_ITS | Encounter Summary ---
Author Organization [facility] Address [address] [place] [address] Phone Care Team Providers Care Roll Coverer Name Role Phone Eunice Nix MD Primary Care Provider [phone] Reason for Visit * Reason Onset Date Comments Schedule home asthma visit 08/23/2018 Encounter Details Date Type Department Care Team (Late st Contact Info) Description 08/23/2018 Patient Outreach [facility] [place] [address] [place] [address] Eunice Nix MD [address] [place] [address] Schedule home asthma visit Social History Tobacco [...] filedocumented in this encounter Care Teams Roll Coverer Relationship Specialty Start Date End Date Eunice Nix MD [address] [place] [address] PCP - General Pediatrics 08/14/17 09/15/23 documented as of this encounter
--- OUTSIDE RECORDS SUMMARY | 2024-03-20 11:30 | XMS_ITS | Encounter Summary ---
Author Organization [facility] Address [address] [place] [address] Phone Care Team Providers Care Hotel Server Name Role Phone Eunice Nix MD Primary Care Provider [phone] Encounter Details Date Type Department Care Team (Late st Contact Info) Description 04/19/2016 Documentation [facility] [place] [address] [place] [address] Family Medicine, Physician [address] [place] [address] Social History Tobacco Use Types Packs/Day Years [...] on filedocumented in this encounter Care Teams Hotel Server Relationship Specialty Start Date End Date Eunice Nix MD [address] [place] [address] PCP - General Pediatrics 08/14/17 09/15/23 documented as of this encounter
--- OUTSIDE RECORDS SUMMARY | 2024-03-20 11:30 | XMS_ITS | Encounter Summary ---
Author Organization [facility] Address [address] [place], [place] [phone] Phone Care Team Providers Care Net Sql Developer Name Role Phone Eunice Nix MD Primary Care Provider Encounter Details Date Type Department Care Team (Late st Contact Info) Description 09/30/2016 Conversion Encounter [facility] [address] [place] [address] Social History Tobacco Use Types Packs/Day Years [...] on filedocumented in this encounter Care Teams Net Sql Developer Relationship Specialty Start Date End Date Eunice Nix MD [address] [place] [address] PCP - General Pediatrics 08/14/17 09/15/23 documented as of this encounter
--- OUTSIDE RECORDS SUMMARY | 2024-03-20 11:30 | XMS_ITS | Encounter Summary ---
Author Organization [facility] Address [address] [place] [address] Phone Care Team Providers Care Chief Scientific Officer Name Role Phone Eunice Nix MD Primary Care Provider [phone] Reason for Visit * Reason Comments Med Refill Encounter Details Date Type Department Care Team (Late st Contact Info) Description 08/01/2018 Refill [facility] - [address] [address] Johnna Seymour MD Severe persistent asthma without [...] complication documented in this encounter Care Teams Chief Scientific Officer Relationship Specialty Start Date End Date Eunice Nix MD [address] [place] [address] PCP - General Pediatrics 08/14/17 09/15/23 documented as of this encounter
--- OUTSIDE RECORDS SUMMARY | 2024-03-20 11:30 | XMS_ITS | Encounter Summary ---
Author Organization [facility] Address [address] [place] [address] Phone Care Team Providers Care Clark Driver Name Role Phone Eunice Nix MD Primary Care Provider [phone] Reason for Visit * Reason Onset Date Comments Schedule 3rd home asthma visit 07/17/2018 Encounter Details Date Type Department Care Team (Late st Contact Info) Description 07/17/2018 Patient Outreach [facility] 150 [place] [address] Eunice Nix MD [address] [place] [address] Schedule 3rd home asthma visit Social History [...] on filedocumented in this encounter Care Teams Clark Driver Relationship Specialty Start Date End Date Eunice Nix MD [address] [place] [address] PCP - General Pediatrics 08/14/17 09/15/23 documented as of this encounter
--- OUTSIDE RECORDS SUMMARY | 2024-03-20 11:30 | XMS_ITS | Encounter Summary ---
Author Organization [facility] Address [address] [place] [address] Phone Care Team Providers Care International Manager Name Role Phone Eunice Nix MD Primary Care Provider [phone] Reason for Visit * Reason Onset Date Comments home asthma visit 2018 Encounter Details Date Type Department Care Team (Late st Contact Info) Description 2018 Patient Outreach [facility] [place] [address] [place] [address] Eunice Nix MD [address] [place] [address] home asthma visit Social History Tobacco Use [...] on filedocumented in this encounter Care Teams International Manager Relationship Specialty Start Date End Date Eunice Nix MD [address] [place] [address] PCP - General Pediatrics 08/14/17 09/15/23 documented as of this encounter
--- OUTSIDE RECORDS SUMMARY | 2024-03-20 11:30 | XMS_ITS | Encounter Summary ---
Author Organization [facility] Address [address] [place] [address] Phone Care Team Providers Care Cloth Bin Packer Name Role Phone Eunice Nix MD Primary Care Provider [phone] Reason for Visit * Reason Onset Date Comments Home Asthma Visit 09/12/2018 Encounter Details Date Type Department Care Team (Late st Contact Info) Description 09/12/2018 Patient Outreach [facility] [place] [address] [place] [address] Eunice Nix MD [address] [place] [address] Home Asthma Visit Social History Tobacco Use [...] on filedocumented in this encounter Care Teams Cloth Bin Packer Relationship Specialty Start Date End Date Eunice Nix MD [address] [place] [address] PCP - General Pediatrics 08/14/17 09/15/23 documented as of this encounter
--- OUTSIDE RECORDS SUMMARY | 2024-03-20 11:30 | XMS_ITS | Encounter Summary ---
Author Organization [facility] Address [address] [place] [address] Phone Care Team Providers Care Emergency Worker Name Role Phone Eunice Nix MD Primary Care Provider [phone] Reason for Visit * Reason Comments Med Refill Encounter Details Date Type Department Care Team (Late st Contact Info) Description 05/28/2021 Refill [facility] [place] [address] [place] [address] Clarisse Falcon MD [address] [place] [address] Intrinsic atopic dermatitis Social History Tobacco Use [...] dermatitis documented in this encounter Care Teams Emergency Worker Relationship Specialty Start Date End Date Eunice Nix MD [address] [place] [address] PCP - General Pediatrics 08/14/17 09/15/23 documented as of this encounter
--- OUTSIDE RECORDS SUMMARY | 2024-03-20 11:30 | XMS_ITS | Encounter Summary ---
Author Organization [facility] Address [address] [place] [address] Phone Care Team Providers Care Leather Dresser Name Role Phone Eunice Nix MD Primary Care Provider [phone] Encounter Details Date Type Department Care Team (Late st Contact Info) Description 12/08/2011 Documentation [facility] [place] Family Medicine [address] [place] [address] Family Medicine, Physician [address] [place], [place] [address] Social History Tobacco Use Types Packs/Day Years [...] on filedocumented in this encounter Care Teams Leather Dresser Relationship Specialty Start Date End Date Eunice Nix MD [address] [place] [address] PCP - General Pediatrics 08/14/17 09/15/23 documented as of this encounter
--- OUTSIDE RECORDS SUMMARY | 2024-03-20 11:30 | XMS_ITS | Encounter Summary ---
Author Organization [facility] Address [address] [place] [address] Phone Care Team Providers Care Ticket Speculator Name Role Phone uEnice Nix MD Primary Care Provider Reason for Visit * Reason Onset Date Comments Schedule Home asthma visit 08/30/2018 Encounter Details Date Type Department Care Team (Late st Contact Info) Description 08/30/2018 Patient Outreach [facility] [place] [address] [place] [address] Eunice Nix MD [address] [place] [address] Schedule Home asthma visit Social History Tobacco [...] on filedocumented in this encounter Care Teams Ticket Speculator Relationship Specialty Start Date End Date Eunice Nix MD [address] [place] [address] PCP - General Pediatrics 08/14/17 09/15/23 documented as of this encounter
--- OUTSIDE RECORDS SUMMARY | 2024-03-20 11:30 | XMS_ITS | Encounter Summary ---
Author Organization [facility] Address [address] [place] [address] Phone Care Team Providers Care Aadc Plans Staff Officer Name Role Phone Eunice Nix MD Primary Care Provider [phone] Reason for Visit * Reason Comments Med Refill Encounter Details Date Type Department Care Team (Late st Contact Info) Description 04/18/2021 Refill [facility] [address] [place] [address] Eunice Nix MD [address] [place] [address] Other depression; Anxiety Social History Tobacco Use [...] last 12 months, has t he electric, [employer], oil, or water [facility] threatened to shut off your services in [...] unspecified documented in this encounter Care Teams Aadc Plans Staff Officer Relationship Specialty Start Date End Date Eunice Nix MD [address] [place] [address] PCP - General Pediatrics 08/14/17 09/15/23 documented as of this encounter
--- OUTSIDE RECORDS SUMMARY | 2024-03-20 11:30 | XMS_ITS | Encounter Summary ---
Author Organization [facility] Address [address] [place] [address] Phone Care Team Providers Care Scrap Drop Engineer Name Role Phone Eunice Nix MD Primary Care Provider [phone] Encounter Details Date Type Department Care Team (Late st Contact Info) Description 03/23/2016 Documentation [facility] [place] Family Medicine [address] [place] [address] Family Medicine, Physician [address] [place] [address] Social History Tobacco Use Types Packs/Day Years [...] on filedocumented in this encounter Care Teams Scrap Drop Engineer Relationship Specialty Start Date End Date Eunice Nix MD [address] [place] [address] PCP - General Pediatrics 08/14/17 09/15/23 documented as of this encounter
--- OUTSIDE RECORDS SUMMARY | 2024-03-20 11:30 | XMS_ITS | Encounter Summary ---
Author Organization [facility] Address [address] [place] [address] Phone Care Team Providers Care Timber Trimmer Name Role Phone Eunice Nix MD Primary Care Provider Reason for Visit * Reason Onset Date Comments Confirm Home Asthma Visit 09/07/2018 Encounter Details Date Type Department Care Team (Late st Contact Info) Description 09/07/2018 Patient Outreach [facility] [place] [address] [place] [address] Eunice Nix MD [address] [place] [address] Confirm Home Asthma Visit Social History Tobacco [...] on filedocumented in this encounter Care Teams Timber Trimmer Relationship Specialty Start Date End Date Eunice Nix MD [address] [place] [address] PCP - General Pediatrics 08/14/17 09/15/23 documented as of this encounter
--- OUTSIDE RECORDS SUMMARY | 2024-03-20 11:30 | XMS_ITS | Encounter Summary ---
Author Organization [facility] Address [address] [place] [address] Phone Care Team Providers Care Repair Clerk Name Role Phone Eunice Nix MD Primary Care Provider [phone] Reason for Visit * Reason Onset Date Comments Follow Up Asthma 07/12/2018 Encounter Details Date Type Department Care Team (Late st Contact Info) Description 07/12/2018 Patient Outreach [facility] [place] [address] [place] [address] Eunice Nix MD [address] [place] [address] Follow Up Asthma Social History Tobacco Use [...] on filedocumented in this encounter Care Teams Repair Clerk Relationship Specialty Start Date End Date Eunice Nix MD [address] [place] [address] PCP - General Pediatrics 08/14/17 09/15/23 documented as of this encounter
--- OUTSIDE RECORDS SUMMARY | 2024-03-20 11:31 | XMS_ITS | Encounter Summary ---
Author Organization [facility] Address [address] [place] [address] Phone Care Team Providers Care Carton Waxing Machine Operator Name Role Phone Eunice Nix MD Primary Care Provider [phone] Encounter Details Date Type Department Care Team (Late st Contact Info) Description 02/19/2014 Documentation [facility] [place] Family Medicine [address] [place] [address] Family Medicine, Physician [address] [place] [address] Social History Tobacco Use Types Packs/Day Years [...] on filedocumented in this encounter Care Teams Carton Waxing Machine Operator Relationship Specialty Start Date End Date Eunice Nix MD [address] [place] [address] PCP - General Pediatrics 08/14/17 09/15/23 documented as of this encounter
--- OUTSIDE RECORDS SUMMARY | 2024-03-20 11:31 | XMS_ITS | Encounter Summary ---
Author Organization [facility] Address [address] [place] [address] Phone Care Team Providers Care Career Placement Services Counselor Name Role Phone Eunice Nix MD Primary Care Provider [phone] Encounter Details Date Type Department Care Team (Late st Contact Info) Description 10/28/2017 Patient Outreach [facility] [address] [place] [address] Eunice Nix MD [address] [place] [address] Social History Tobacco Use Types Packs/Day Years [...] on filedocumented in this encounter Care Teams Career Placement Services Counselor Relationship Specialty Start Date End Date Eunice Nix MD [address] [place] [address] PCP - General Pediatrics 08/14/17 09/15/23 documented as of this encounter
--- OUTSIDE RECORDS SUMMARY | 2024-03-20 11:31 | XMS_ITS | Encounter Summary ---
Author Organization [facility] Address [address] [place] [address] Phone Care Team Providers Care Toddler Teacher Name Role Phone Eunice Nix MD Primary Care Provider [phone] Reason for Visit * Reason Comments Med Refill Encounter Details Date Type Department Care Team (Late st Contact Info) Description 08/19/2019 Refill [facility] [address] [place] [address] Eunice Nix MD [address] [place] [address] Dysmenorrhea in adolescent Social History Tobacco Use [...] adolescent documented in this encounter Care Teams Toddler Teacher Relationship Specialty Start Date End Date Eunice Nix MD [address] [place] [address] PCP - General Pediatrics 08/14/17 09/15/23 documented as of this encounter
--- OUTSIDE RECORDS SUMMARY | 2024-03-20 11:31 | XMS_ITS | Encounter Summary ---
Author Organization [facility] Address [address] [place] [address] Phone Care Team Providers Care Human Resources Office Assistant Name Role Phone Eunice Nix MD Primary Care Provider Reason for Visit * Reason Comments Med Refill Encounter Details Date Type Department Care Team (Late st Contact Info) Description 08/18/2020 Refill [facility] [address] [place] [address] Eunice Nix MD [address] [place] [address] Intrinsic eczema Social History Tobacco Use Types [...] eczema documented in this encounter Care Teams Human Resources Office Assistant Relationship Specialty Start Date End Date Eunice Nix MD [address] [place] [address] PCP - General Pediatrics 08/14/17 09/15/23 documented as of this encounter
--- OUTSIDE RECORDS SUMMARY | 2024-03-20 11:31 | XMS_ITS | Encounter Summary ---
Author Organization [facility] Address [address] [place] [address] Phone Care Team Providers Care Building Materials Sales Attendant Name Role Phone Eunice Nix MD Primary Care Provider [phone] Reason for Visit * Reason Onset Date Comments Met with pt at pulmonary visit 06/15/2018 Encounter Details Date Type Department Care Team (Late st Contact Info) Description 06/15/2018 Patient Outreach [facility] [address] [place] [address] Eunice Nix MD [address] [place] [address] Met with pt at pulmonary visit Social [...] on filedocumented in this encounter Care Teams Building Materials Sales Attendant Relationship Specialty Start Date End Date Eunice Nix MD 150 [place] [address] PCP - General Pediatrics 08/14/17 09/15/23 documented as of this encounter
--- OUTSIDE RECORDS SUMMARY | 2024-03-20 11:31 | XMS_ITS | Encounter Summary ---
Author Organization [facility] Address [address] [place] [address] Phone Care Team Providers Care Application Project Leader Name Role Phone Eunice Nix MD Primary Care Provider [phone] Reason for Visit * Reason Comments Med Refill Encounter Details Date Type Department Care Team (Late st Contact Info) Description 08/12/2017 Refill [facility] - [address] [address] Erlinda Valdez MD Severe persistent asthma, unspecified [...] Primary documented in this encounter Care Teams Application Project Leader Relationship Specialty Start Date End Date Eunice Nix MD [address] [place] [address] PCP - General Pediatrics 08/14/17 09/15/23 documented as of this encounter
--- OUTSIDE RECORDS SUMMARY | 2024-03-20 11:31 | XMS_ITS | Encounter Summary ---
Author Organization [facility] Address [address] [place] [address] Phone Care Team Providers Care Facilities Coordinator Name Role Phone Eunice Nix MD Primary Care Provider [phone] Encounter Details Date Type Department Care Team (Late st Contact Info) Description 09/07/2017 Patient Outreach [facility] 150 [place] [address] Eunice Nix MD [address] [place] [address] Social History Tobacco Use Types Packs/Day Years [...] on filedocumented in this encounter Care Teams Facilities Coordinator Relationship Specialty Start Date End Date Eunice Nix MD 150 [place] [address] PCP - General Pediatrics 08/14/17 09/15/23 documented as of this encounter
--- OUTSIDE RECORDS SUMMARY | 2024-03-20 11:31 | XMS_ITS | Encounter Summary ---
Author Organization [facility] Address [address] [place] [address] Phone Care Team Providers Care Steward Racetrack Name Role Phone Eunice Nix MD Primary Care Provider [phone] Reason for Visit * Reason Comments Med Refill Encounter Details Date Type Department Care Team (Late st Contact Info) Description 07/03/2018 Refill [facility] - [address] [address] Johnna Seymour MD Severe persistent asthma without [...] complication documented in this encounter Care Teams Steward Racetrack Relationship Specialty Start Date End Date Eunice Nix MD [address] [place] [address] PCP - General Pediatrics 08/14/17 09/15/23 documented as of this encounter
--- OUTSIDE RECORDS SUMMARY | 2024-03-20 11:31 | XMS_ITS | Encounter Summary ---
Author Organization [facility] Address [address] [place] [address] Phone Care Team Providers Care Fumigator And Sterilizer Name Role Phone Eunice Nix MD Primary Care Provider [phone] Encounter Details Date Type Department Care Team (Late st Contact Info) Description 10/03/2017 Patient Outreach [facility] [address] [place] [address] Eunice Nix MD [address] [place] [address] Social History Tobacco Use Types Packs/Day Years [...] on filedocumented in this encounter Care Teams Fumigator And Sterilizer Relationship Specialty Start Date End Date Eunice Nix MD [address] [place] [address] PCP - General Pediatrics 08/14/17 09/15/23 documented as of this encounter
--- OUTSIDE RECORDS SUMMARY | 2024-03-20 11:31 | XMS_ITS | Encounter Summary ---
Author Organization [facility] Address [address] [place] [address] Phone Care Team Providers Care Oracle Application Architect Name Role Phone Eunice Nix MD Primary Care Provider [phone] Encounter Details Date Type Department Care Team (Late st Contact Info) Description 08/29/2018 Patient Outreach [facility] 150 [place] [address] Eunice Nix MD [address] [place] [address] Social History Tobacco Use Types Packs/Day Years [...] filedocumented in this encounter Care Teams Oracle Application Architect Relationship Specialty Start Date End Date Eunice Nix MD 150 [place] [address] PCP - General Pediatrics 08/14/17 09/15/23 documented as of this encounter
--- OUTSIDE RECORDS SUMMARY | 2024-03-20 11:31 | XMS_ITS | Encounter Summary ---
Author Organization [facility] Address [address] [place] [address] Phone Care Team Providers Care Sulfuric Acid Plant Operator Name Role Phone Eunice Nix MD Primary Care Provider [phone] Reason for Visit * Reason Onset Date Comments Schedule home asthma visit 06/13/2018 Encounter Details Date Type Department Care Team (Late st Contact Info) Description 06/13/2018 Patient Outreach [facility] 150 [place] [address] Eunice Nix MD [address] [place] [address] Schedule home asthma visit Social History Tobacco [...] on filedocumented in this encounter Care Teams Sulfuric Acid Plant Operator Relationship Specialty Start Date End Date Eunice Nix MD [address] [place] [address] PCP - General Pediatrics 08/14/17 09/15/23 documented as of this encounter
--- OUTSIDE RECORDS SUMMARY | 2024-03-20 11:31 | XMS_ITS | Clinical Summary ---
Author Organization [facility] Address [address] [place] [address] Care Team Providers Care Organizational Research Consultant Name Role Phone Unavailable Primary Care Provider [...]
--- OUTSIDE RECORDS SUMMARY | 2024-03-20 11:31 | XMS_ITS | Encounter Summary ---
Author Organization [facility] Address [address] [place] [address] Phone Care Team Providers Care Drain Technician Name Role Phone Eunice Nix MD Primary Care Provider [phone] Reason for Visit * Reason Comments Med Refill Encounter Details Date Type Department Care Team (Late st Contact Info) Description 07/18/2022 Refill [facility] [address] [place] [address] Osmin Slaughter MD 150 [place] [address] Intrinsic atopic dermatitis; Severe persistent asthma with [...] exacerbation documented in this encounter Care Teams Drain Technician Relationship Specialty Start Date End Date Eunice Nxi MD [address] [place] [address] PCP - General Pediatrics 08/14/17 09/15/23 documented as of this encounter
--- OUTSIDE RECORDS SUMMARY | 2024-03-20 11:31 | XMS_ITS | Encounter Summary ---
Author Organization [facility] Address [address] [place] [address] Phone Care Team Providers Care Core Driller Helper Name Role Phone Eunice Nix MD Primary Care Provider [phone] Reason for Visit * Reason Comments Med Refill Encounter Details Date Type Department Care Team (Late st Contact Info) Description 12/21/2016 Refill [facility] - [address] [address] Erlinda Valdez MD Social History Tobacco Use [...] on filedocumented in this encounter Care Teams Core Driller [place] Relationship Specialty Start Date End Date Eunice Nix MD 150 [place] [address] PCP - General Pediatrics 08/14/17 09/15/23 documented as of this encounter
--- OUTSIDE RECORDS SUMMARY | 2024-03-20 11:31 | XMS_ITS | Encounter Summary ---
Author Organization [facility] Address [address] [place] [address] Phone Care Team Providers Care Donation Worker Name Role Phone Eunice Nix MD Primary Care Provider [phone] Encounter Details Date Type Department Care Team (Late st Contact Info) Description 10/24/2015 Documentation [facility] [address] [place] [address] Family Medicine, Physician [address] [place], [place] [address] Social History Tobacco Use Types Packs/Day Years [...] on filedocumented in this encounter Care Teams Donation Worker Relationship Specialty Start Date End Date Eunice Nix MD [address] [place] [address] PCP - General Pediatrics 08/14/17 09/15/23 documented as of this encounter
--- OUTSIDE RECORDS SUMMARY | 2024-03-20 11:31 | XMS_ITS | Encounter Summary ---
Author Organization [facility] Address [address] [place] [address] Phone Care Team Providers Care Twister Tender Name Role Phone Eunice Nix MD Primary Care Provider [phone] Reason for Visit * Reason Comments Med Refill Encounter Details Date Type Department Care Team (Late st Contact Info) Description 12/21/2019 Refill [facility] [address] [place] [address] Eunice Nix MD [address] [place] [address] Intrinsic eczema Social History Tobacco Use Types [...] eczema documented in this encounter Care Teams Twister Tender Relationship Specialty Start Date End Date Eunice Nix MD [address] [place] [address] PCP - General Pediatrics 08/14/17 09/15/23 documented as of this encounter
--- OUTSIDE RECORDS SUMMARY | 2024-03-20 11:31 | XMS_ITS | Encounter Summary ---
Author Organization [facility] Address [address] [place] [address] Phone Care Team Providers Care Coating Machine Operator [place] Name Role Phone Eunice Nix MD Primary Care Provider [phone] Encounter Details Date Type Department Care Team (Late st Contact Info) Description 05/08/2014 Documentation [facility] Family Medicine [address] [place] [address] Family Medicine, Physician [address] [place] [address] Social History Tobacco Use Types Packs/Day Years [...] on filedocumented in this encounter Care Teams Coating Machine Operator [place] Relationship Specialty Start Date End Date Eunice Nix MD [address] [place] [address] PCP - General Pediatrics 08/14/17 09/15/23 documented as of this encounter
--- OUTSIDE RECORDS SUMMARY | 2024-03-20 11:31 | XMS_ITS | Encounter Summary ---
Author Organization [facility] Address [address] [place] [address] Phone Care Team Providers Care Marketing Automation Analyst Name Role Phone Eunice Nix MD Primary Care Provider [phone] Reason for Visit * Reason Onset Date Comments Home Asthma Visit 06/14/2018 Encounter Details Date Type Department Care Team (Late st Contact Info) Description 06/14/2018 Patient Outreach [facility] [address] [place] [address] Eunice Nix MD 150 [place] [address] Home Asthma Visit Social History Tobacco Use [...] filedocumented in this encounter Care Teams Marketing Automation Analyst Relationship Specialty Start Date End Date Eunice Nix MD [address] [place] [address] PCP - General Pediatrics 08/14/17 09/15/23 documented as of this encounter
--- OUTSIDE RECORDS SUMMARY | 2024-03-20 11:31 | XMS_ITS | Encounter Summary ---
Author Organization [facility] Address [address] [place] [address] Phone Care Team Providers Care Tube Puller Name Role Phone Eunice Nix MD Primary Care Provider [phone] Reason for Visit * Reason Comments Med Refill Encounter Details Date Type Department Care Team (Late st Contact Info) Description 01/17/2020 Refill [facility] [address] [place] [address] Eunice Nix MD [address] [place] [address] Severe persistent asthma with acute exacerbation Social [...] exacerbation documented in this encounter Care Teams Tube Puller Relationship Specialty Start Date End Date Eunice Nix MD [address] [place] [address] PCP - General Pediatrics 08/14/17 09/15/23 documented as of this encounter
--- OUTSIDE RECORDS SUMMARY | 2024-03-20 11:31 | XMS_ITS | Encounter Summary ---
Author Organization [facility] Address [address] [place] [address] Phone Care Team Providers Care Shrimp Trawler Captain Name Role Phone Eunice Nix MD Primary Care Provider [phone] Reason for Visit * Reason Onset Date Comments Home asthma visit 06/30/2018 Encounter Details Date Type Department Care Team (Late st Contact Info) Description 06/30/2018 Patient Outreach [facility] 150 [place] [address] Eunice Nix MD [address] [place] [address] Home asthma visit Social History Tobacco Use [...] on filedocumented in this encounter Care Teams Shrimp Trawler Captain Relationship Specialty Start Date End Date Eunice Nix MD [address] [place] [address] PCP - General Pediatrics 08/14/17 09/15/23 documented as of this encounter
--- OUTSIDE RECORDS SUMMARY | 2024-03-20 11:31 | XMS_ITS | Encounter Summary ---
Author Organization [facility] Address [address] [place], [place] [address] Phone Care Team Providers Care Computer Aided Design Operator Name Role Phone Eunice Nix MD Primary Care Provider [phone] Reason for Visit * Reason Comments Med Refill Encounter Details Date Type Department Care Team (Late st Contact Info) Description 04/15/2017 Refill [facility] [address] [place] [address] Jessica Estes MD 150 [place] [address] Intrinsic eczema (Primary Dx) Social History Tobacco [...] Primary documented in this encounter Care Teams Computer Aided Design Operator Relationship Specialty Start Date End Date Eunice Nix MD [address] [place] [address] PCP - General Pediatrics 08/14/17 09/15/23 documented as of this encounter
--- OUTSIDE RECORDS SUMMARY | 2024-03-20 11:31 | XMS_ITS | Encounter Summary ---
Author Organization [facility] Address [address] [place] [address] Phone Care Team Providers Care Hydroponics Grower Name Role Phone Eunice Nix MD Primary Care Provider [phone] Encounter Details Date Type Department Care Team (Late st Contact Info) Description 08/08/2017 Patient Outreach [facility] [address] [place] [address] Erlinda Valdez MD Social History Tobacco Use [...] on filedocumented in this encounter Care Teams Hydroponics Grower Relationship Specialty Start Date End Date Eunice Nix MD [address] [place] [address] PCP - General Pediatrics 08/14/17 09/15/23 documented as of this encounter
--- OUTSIDE RECORDS SUMMARY | 2024-03-20 11:31 | XMS_ITS | Encounter Summary ---
Author Organization [facility] Address [address] [place] [address] Phone Care Team Providers Care Public Address Servicer Name Role Phone Eunice Nix MD Primary Care Provider [phone] Encounter Details Date Type Department Care Team (Late st Contact Info) Description 09/21/2017 Patient Outreach [facility] [address] [place] [address] Eunice Nix MD [address] [place] [address] Social History Tobacco Use Types Packs/Day Years [...] on filedocumented in this encounter Care Teams Public Address Servicer Relationship Specialty Start Date End Date Eunice Nix MD [address] [place] [address] PCP - General Pediatrics 08/14/17 09/15/23 documented as of this encounter
--- OUTSIDE RECORDS SUMMARY | 2024-03-20 11:31 | XMS_ITS | Clinical Summary ---
Author Organization [facility] Address [address] [place] [address] Phone Care Team Providers Care Cemetery Manager Name Role Phone Unavailable Primary Care Provider [...] 16 mL, 5 Refills, 05/06/21 10:25:00 EDT, [facility]/pharmacy #[id number], 30, TAKE 2 SPRAYS IN EACH NOSTRIL TWICE DAILY, 149.7, cm, 05/06/21 9:15:00 EDT, Height, 69.6, kg, 05/06/21 9:15:00 EDT, Dry Weight 05/07/19 22 Active mometasone-formo terol (Dulera) 200-5 MCG/ACT inhaler Inhale. 05/07/19 22 Active Tiotropium Paradise Monohydrate (Spiriva Respimat) 2.5 MCG/ACT aerosol solution [...] handoff- Met with pt and mom at [facility], we spoke about current needs; including help [...] her substance use. She was referred to [facility] directly today and will head there [...] every day. Labs ordered, advised to call movie shot cameraman to discuss IUD. 03/07 - labs can [...] AM EST): Labs ordered, advised to call movie shot cameraman to discuss IUD. Current episode of major [...] not been able to connect with a mosaic tiler yet. We will asked the medical home care coordinating team to help assist her in making that contact. Assessment & Plan (05/28/2021 6:10 PM EDT): Will try a regimen of clindamycin and rifampin since she had a recurrence soon after treatment with doxycycline. Referring to [facility] dermatology for consult for consideration for [...] this. 05/11/2022- WHO with MM/to go to [facility] walk-in. Assessment & Plan (05/11/2022 3:45 PM EDT): 05/11/22-Pt. With ongoing symptoms of depression and recent onset of daily panic attacks. Pt. Feels she needs more behavioral health support. Call made to [facility] crisis and pt. To go today for further assessment at 2pm. Pt. To contact us if needs further support. Assessment & Plan (05/11/2022 12:23 PM EDT): WHO with Delores Hallman/to go to [facility] walk-in. Assessment & Plan (02/05/2022 9:08 [...] with Augmentin and I&D by Sue Nicole, [facility] pedi surgery 08/01. Recurrence 02/01, seen by [...] moves, and 2 mo stay in a intermediate at one point. Father has been in [...] anxiety, WHO with Delores Hallman/to go to [facility] walk-in Assessment & Plan (06/29/2023 12:15 [...] anxiety, WHO with Delores Hallman/to go to [facility] walk-in Assessment & Plan (02/05/2022 9:04 [...] ahead if needing to cancel/change. Continue with [facility] with Honorio Mendoza. Assessment & Plan (03/13/2020 [...] antibody) started 04/20/23. Since 02/04, followed by [facility] pulm (Dr. Khan). Was steroid dependent in 2014 and has high allergic component to her asthma. PICU stays 04/27, 12/29, 04/30, 03/03 (Flu pos), 06/02. Was on pred for most of 2014. Was seeing until he retired. Now followed by [facility]/ Dr. Judd, [facility] Pul. Started immunotherapy with Dr. Judd [...] patient says this was helpful. Last f/u [facility] pulm (Dr. Estevez/Dr. Ornelas) 11/06/21- continue [...] Plan (05/11/2022 12:04 PM EDT): Continue with supervisor nuclear medicine. Assessment & Plan (01/15/2022 7:12 PM EST): Given prednisone and follow up with supervisor nuclear medicine, Dr. Nix, using albuterol Assessment & Plan (08/05/2021 2:37 PM EDT): She actually does not sound bad today. I have encouraged her to finish her prednisone burst at 60 mg daily for for 5 days. I have advised her to contact her supervisor nuclear medicine to let them know that she needed to take the prednisone now and needed to use it this past May. Continue with Dulera, Spiriva, montelukast per usual plan. Continue cetirizine and Flonase. Our medical home care coordinating team will reach out to her in a couple of days to make sure she is feeling better and that she has touch base with her supervisor nuclear medicine. Assessment & Plan (02/26/2021 10:54 AM EST): [...] indoor work opportunities. Recommend following up with supervisor nuclear medicine due to poor rescue inhaler response and [...] totally better. Has f/u with pulm at [facility] shortly per mom. Discussed with CC and [...] flares and missed appts. Last visit with Hose Mender, Dr. Nunez 02/21/19- allergies are likely OAS [...] Trish. I also advised she call her nuclear fuel enrichment technician for f/u. Assessment & Plan (12/31/2019 9:45 [...] head during a spinning ride at the [employer]). Assessment & Plan (01/22/2019 2:59 PM EST): Reports this is much better. Just getting occasional small HAs that feel more normal to her. Other symptoms have been gone 1-2 weeks ago. Has appt at [facility] on 01/26, may cancel it. Assessment & Plan (01/01/2019 5:12 PM EST): Continues with significant symptoms (THOMAS, dizziness, nausea). I referred to neuro last week, though will try for concussion clinic (closest is [facility] given this is not sports related). If that is not possible, will try for adult neuro at [facility]. Referrals aware to do this JAY JAY. [...] Additional history exists Procedures * Due to [place] state law, this organization might not be sharing sensitive test results. Procedure Name Priority Date/Time Associated Diagnosis Comments CHLAMYDIA AND GONORRHEA, AMPLIFIED Routine 06/29/2023 11:57 AM EDT Encounter for screening examination for chlamydial infection from Last 3 Months or Most Recently Relevant to Health Maintenance Results * Due to [place] state law, this organization might not be sharing sensitive test results. * Chlamydia and Gonorrhoea, Amplified (06/29/2023 11:57 AM EDT) C trach FRANCK Negative Negative [facility] N gonorrhoeae FRANCK Negative Negative [facility] Urine (Urine) 06/29/2023 11: 57 AM EDT 06/29/2023 Comment:UR Narrative [facility] - 07/01/2023 12:06 AM EDT Performed at: ??01 - [facility] [address] ??[id number] Vocational Coordinator: Zamzam Bejarano MD, Phone: ??[phone] us Eunice Nix MD LAB MICROBIOLOGY - GENERAL OR DERABLES Final Result [facility] [address] [place] [address] from Last 3 Months or Most Recently Relevant to Health Maintenance
--- OUTSIDE RECORDS SUMMARY | 2024-03-20 11:31 | XMS_ITS | Encounter Summary ---
Author Organization [facility] Address [address] [place] [address] Phone Care Team Providers Care Family Practice Physician Assistant Name Role Phone Eunice Nix MD Primary Care Provider [phone] Encounter Details Date Type Department Care Team (Late st Contact Info) Description 09/02/2017 Patient Outreach [facility] [address] [place] [address] Eunice Nix MD [address] [place] [address] Social History Tobacco Use Types Packs/Day Years [...] on filedocumented in this encounter Care Teams Family Practice Physician Assistant Relationship Specialty Start Date End Date Eunice Nix MD [address] [place] [address] PCP - General Pediatrics 08/14/17 09/15/23 documented as of this encounter
--- OUTSIDE RECORDS SUMMARY | 2024-03-20 11:31 | XMS_ITS | Encounter Summary ---
Author Organization [facility] Address [address] [place] [address] Phone Care Team Providers Care Director Of Institutional Giving Name Role Phone Eunice Nix MD Primary Care Provider [phone] Encounter Details Date Type Department Care Team (Late st Contact Info) Description 09/24/2014 Documentation [facility] [address] [place] [address] Family Medicine, Physician [address] [place] [address] Social History Tobacco Use Types Packs/Day Years [...] on filedocumented in this encounter Care Teams Director Of Institutional Giving Relationship Specialty Start Date End Date Eunice Nix MD [address] [place] [address] PCP - General Pediatrics 08/14/17 09/15/23 documented as of this encounter
--- OUTSIDE RECORDS SUMMARY | 2024-03-20 11:31 | XMS_ITS | Encounter Summary ---
Author Organization [facility] Address [address] [place] [address] Phone Care Team Providers Care Reprographics Associate Name Role Phone Eunice Nix MD Primary Care Provider [phone] Encounter Details Date Type Department Care Team (Late st Contact Info) Description 01/21/2016 Documentation [facility] Medicine [address] [place] [address] Family Medicine, Physician [address] [place] [address] Social History Tobacco Use Types Packs/Day Years [...] on filedocumented in this encounter Care Teams Reprographics Associate Relationship Specialty Start Date End Date Eunice Nix MD [address] [place] [address] PCP - General Pediatrics 08/14/17 09/15/23 documented as of this encounter
--- OUTSIDE RECORDS SUMMARY | 2024-03-20 11:31 | XMS_ITS | Encounter Summary ---
Author Organization [facility] Address [address] [place] [address] Phone Care Team Providers Care Etcher Photoengraving Name Role Phone Eunice Nix MD Primary Care Provider [phone] Encounter Details Date Type Department Care Team (Late st Contact Info) Description 09/26/2017 Patient Outreach [facility] [address] [place] [address] Eunice Nix MD [address] [place] [address] Social History Tobacco Use Types Packs/Day Years [...] on filedocumented in this encounter Care Teams Etcher Photoengraving Relationship Specialty Start Date End Date Eunice Nix MD [address] [place] [address] PCP - General Pediatrics 08/14/17 09/15/23 documented as of this encounter
--- OUTSIDE RECORDS SUMMARY | 2024-03-20 11:31 | XMS_ITS | Clinical Summary ---
Author Organization [facility] Address [address] [place] [address] Care Team Providers Care Substitute Crossing Guard Name Role Phone Eunice Nix MD Primary Care Provider [phone] Source Comments Please note that some or [...] so, obtain the minor's consent prior to disclosure.[facility] Allergies Active Allergy Reactions Criticality Noted [...] 5 Refills, 05/06/21 10:25:00 EDT, [facility]/pharmacy #[id number], 30, TAKE 2 SPRAYS IN EACH [...] Replace Required Details, Route to Pharmacy Electronically, [id number]... 2 Active tiotropium bromide 2.5 mcg/actuation [...] age to complete this topic Insurance [place] [id number] [facility] ([employer]) Care Teams Substitute Crossing Guard Relationship Specialty Start Date End Date Eunice Nix MD [address] [place] [address] [place] [id number] PCP - General General Pediatrics 10/21/21
--- OUTSIDE RECORDS SUMMARY | 2024-03-20 11:31 | XMS_ITS | Encounter Summary ---
Author Organization [facility] Address [address] [place] [address] Phone Care Team Providers Care Fish Frog Or Oyster Farmer Name Role Phone Eunice Nix MD Primary Care Provider [phone] Reason for Visit * Reason Comments Med Refill Encounter Details Date Type Department Care Team (Late st Contact Info) Description 12/20/2020 Refill [facility] [address] [place] [address] Eunice Nix MD [address] [place] [address] Hives Social History Tobacco Use Types Packs/Day [...] urticaria documented in this encounter Care Teams Fish Frog Or Oyster Farmer Relationship Specialty Start Date End Date Eunice Nix MD [address] [place] [address] PCP - General Pediatrics 08/14/17 09/15/23 documented as of this encounter
--- OUTSIDE RECORDS SUMMARY | 2024-03-20 11:31 | XMS_ITS | Encounter Summary ---
Author Organization [facility] Address [address] [place] [address] Phone Care Team Providers Care Beauty Sales Advisor Name Role Phone Eunice Nix MD Primary Care Provider [phone] Encounter Details Date Type Department Care Team (Late st Contact Info) Description 05/11/2013 Documentation [facility] [place] [address] [place] [address] Family Medicine, Physician [address] [place] [address] Social History Tobacco Use Types Packs/Day Years [...] on filedocumented in this encounter Care Teams Beauty Sales Advisor Relationship Specialty Start Date End Date Eunice Nix MD [address] [place] [address] PCP - General Pediatrics 08/14/17 09/15/23 documented as of this encounter
--- OUTSIDE RECORDS SUMMARY | 2024-03-20 11:31 | XMS_ITS | Referral Summary ---
Author Organization [facility] Address [address] [place] [address] Care Team Providers Care Informatica Mdm Developer Name Role Phone Eunice Nix MD Primary Care Provider [phone] Source Comments Please note that some or [...] so, obtain the minor's consent prior to disclosure.[facility] Allergies Active Allergy Reactions Criticality Noted Date [...] 16 mL, 5 Refills, 05/06/21 10:25:00 EDT, [facility]/pharmacy #[id number], 30, TAKE 2 SPRAYS IN [...] Replace Required Details, Route to Pharmacy Electronically, [id number]... 2 Active tiotropium bromide 2.5 mcg/actuation [...] about your child you'd like help w [facility]? Not on file 10/29/2022 Share good [...] Plan of Treatment Not on file Insurance [facility] [place] [id number] [facility] ([id number]) Care Teams Informatica Mdm Developer Relationship Specialty Start Date End Date Eunice Nix MD [address] [place] [address] [place] [id number] PCP - General General Pediatrics 10/21/21
--- OUTSIDE RECORDS SUMMARY | 2024-03-20 11:31 | XMS_ITS | Encounter Summary ---
Author Organization [facility] Address [address] [place] [address] Phone Care Team Providers Care Business Area Manager Name Role Phone Eunice Nix MD Primary Care Provider [phone] Encounter Details Date Type Department Care Team (Late st Contact Info) Description 11/04/2017 Patient Outreach [facility] [address] [place] [address] Eunice Nix MD [address] [place] [address] Social History Tobacco Use Types Packs/Day Years [...] on filedocumented in this encounter Care Teams Business Area Manager Relationship Specialty Start Date End Date Eunice Nix MD [address] [place] [address] PCP - General Pediatrics 08/14/17 09/15/23 documented as of this encounter
--- OUTSIDE RECORDS SUMMARY | 2024-03-20 11:31 | XMS_ITS | Encounter Summary ---
Author Organization [facility] Address [address] [place] [address] Phone Care Team Providers Care Scrap Materials Buyer Name Role Phone Eunice Nix MD Primary Care Provider [phone] Encounter Details Date Type Department Care Team (Late st Contact Info) Description 10/05/2017 Patient Outreach [facility] [address] [place] [address] Eunice Nix MD [address] [place] [address] Social History Tobacco Use Types Packs/Day Years [...] filedocumented in this encounter Care Teams Scrap Materials Buyer Relationship Specialty Start Date End Date Eunice Nix MD [address] [place] [address] PCP - General Pediatrics 08/14/17 09/15/23 documented as of this encounter
[2024-03-20 11:53] LABS: Basophils Absolute Auto 0.1 X10*3/uL (0.0-0.2); Basophils Percent Auto 0.3 % (0-2); Eosinophils Absolute Auto 0.1 X10*3/uL (0.0-0.4); Eosinophils Percent Auto 0.5 % (0-4); Hematocrit 43.8 % (37.0-47.0); Hemoglobin 14.5 g/dl (12.0-16.0); Imm Gran Abs Auto 0.08 X10*3/uL (0.00-0.03); Imm Gran Pct Auto 0.5 % (0.0-0.4); Lymphocytes Absolute Auto 2.9 X10*3/uL (1.2-4.9); Lymphocytes Percent Auto 17.7 % (20-40); Mean Corpuscular HGB Conc 33.1 g/dl (31.0-35.0); Mean Corpuscular Hemoglobin 28.2 pg (27.0-33.0); Mean Corpuscular Volume 85.2 fL (80.0-98.0); Mean Platelet Volume 9.8 fL (9.4-12.3); Monocytes Absolute Auto 1.2 X10*3/uL (0.1-1.2); Monocytes Percent Auto 7.1 % (2-11); Neutrophils Absolute Auto 12.2 x10*3/uL (2.0-8.3); Neutrophils Percent Auto 73.9 % (45-73); Platelet Count 527 X10*3/uL (160-400); Red Blood Count 5.14 X10*6/uL (4.20-5.50); Red Cell Distribution Width 11.9 % (11.0-16.0); White Blood Count 16.5 X10*3/uL (4.8-10.8)
[2024-04-10 11:26] LABS: Asperg fumigatus Precip Abs NEGATIVE; Micropoly faeni Abs NEGATIVE; Pigeon serum Abs NEGATIVE; Saccharo pora viridis Abs NEGATIVE
[2024-04-10 11:27] LABS: Thermo candidus Abs NEGATIVE; Thermoa vulgaris #1 NEGATIVE
[2024-04-10 11:28] LABS: Immunoglobulin E 8148 (H)
[2024-04-10 11:29] LABS: D002 - IgE D farinae 8.41 (H); E072-IgE Mouse Urine 2.73 (H); I006-IgE Cockroach, German 1.83 (H)
[2024-04-10 11:30] LABS: Class Cat Dander 6; Class Cockroach 2; Class Dermatophagoides farinae 3; Class Dog Dander 6; Class Mouse Urine Protein 2; E001 - IgE Cat Dander >100 (H); E005 - IgE Dog Dander >100 (H)
[2024-04-10 11:32] LABS: Class Aspergillus fumigatus 3; Class Cladosporium herbarum 2; Class Timothy Grass 3; G006 - IgE Timothy Grass 4.20 (H); M002 - IgE Cladosporium herbar 1.05 (H); M003 - IgE Aspergillus fumigat 3.95 (H)
[2024-04-10 11:33] LABS: Class Alternaria alternata 3; Class Mountain Cedar 2; M006 - IgE Alternaria alternat 7.45; T006 - IgE Cedar, Mountain 3.46 (2)
[2024-04-10 11:34] LABS: Class Oak 4; Class Sycamore 3; Class Walnut Tree 3; T007 - IgE Oak, White 24.90 (H); T010 - IgE Walnut 12.60 (H); T011 - IgE Maple Leaf Sycamore 6.09 (H); T014 - IgE Cottonwood 4.75 (H)
[2024-04-10 11:35] LABS: Class Cottonwood 3; Class White Ash 3; Class White Mulberry 2; T015 - IgE Ash, White 10.40 (H); T070 - IgE White Mulberry 1.82 (H)
[2024-04-10 11:36] LABS: Class Common Ragweed 4; Class Mugwort 3; D001 IgE D pteronyssinus 27.60 (H); W001 - IgE Ragweed, Short 41.50 (H); W006 - IgE Mugwort 4.25 (H)
[2024-04-10 11:37] LABS: Class Bermuda Grass 3; Class Derm. pterony 4; Class Penicillium crysogenum 2; G002 IgE Bermuda Grass 7.10 (H); M001 IgE Penicillium chrysogen 2.27 (H)
[2024-04-10 11:38] LABS: Class Birch 5; T003 IgE Common Silver Birch 73.80 (H)
[2024-04-10 11:39] LABS: Class Elm 3; Class Maple Box Elder 3; Class Rough Pigweed 3; Class Sheep Sorrel 3; T001 IgE Maple/Box Elder 7.96 (H); T008 IgE Elm, American 9.39 (H); W014 IgE Pigweed, Common 7.07 (H)
[2024-04-10 11:40] LABS: W018 IgE Sheep Sorrel 7.88
== END 2024-03-20 09:59 | disposition home or self-care (01) ==
LOC: HO.LAB 09:58
PROVIDERS: PCP Internal Medicine; Visit Provider Hospitalist
DX: J30.9 Allergic rhinitis, unspecified (principal); L20.89 Other atopic dermatitis; J45.51 Severe persistent asthma with (acute) exacerbation; R91.1 Solitary pulmonary nodule; R91.8 Other nonspecific abnormal finding of lung field; T78.40XA Allergy, unspecified, initial encounter
CPT/HCPCS: 36415; 82785; 85025; 86003; 86331; 86606; 86609; 99212

== ENCOUNTER 2024-12-25 08:59 | Outpatient (AMB) | payer OTHER, SELFPAY ==
--- OUTSIDE RECORDS SUMMARY | 2024-10-02 11:31 | XMS_ITS ---
Author Name [facility] Organization Unknown History of Medication Use Medication Directions Dispensed Refills Start Date End Date Stat us fluticasone propion-salmeteroL (ADVAIR) 500-50 mcg/dose Disk with Device See Instructions, TAKE 2 SPRAYS IN EACH NOSTRIL TWICE DAILY, # 16 mL, 5 Refills, 05/06/21 10:25:00 EDT, [facility]/pharmacy #[id number], 30, TAKE 2 SPRAYS IN EACH NOSTRIL TWICE DAILY, 149.7, cm, 05/06/21 9:15:00 EDT, Height, 69.6, kg, 05/06/21 9:15:00 EDT, Dry Weight 05/06/2021 active inhaler,assist device,lg mask ([facility]) See Instructions, # 1 each, Refills 1, Tot. Refills 1, Maintenance, use with inhaler, 05/06/21 10:26:00 EDT, Supply, 149.7, cm, 05/06/21 9:15:00 EDT, Height, 69.6, kg, 05/06/21 9:15:00 EDT, Dry Weight 05/06/2021 active montelukast (SINGULAIR) 10 mg tablet Take by mouth 05/06/2021 active Allergies Allergen Reaction Severity Comment Documented Date Source Statu s TREE NUT Tree Nuts 10/29/2021 [facility] active BANANA [facility] Problems Problem Status Onset Date Problem Type Date of Resoluti on Source Arthritis active EncounterDiagnosisAct [facility] Encounters Encounter Type Encounter Reason Primary Diagnosis Location Date Ambulatory [facility] 11/01/2021 Care Team Organization Name Specialty Phone Email Start Date End Da te [facility] Eunice Nix Primary Care 11/02/2021
--- OUTSIDE RECORDS SUMMARY | 2024-10-02 11:31 | XMS_ITS | Clinical Summary ---
Author Organization [facility] Address [address] [place] [address] Phone Care Team Providers Care Manager Athletics Name Role Phone Physician, Pcp Unknown Primary Care Provider Alisa vailable Allergies Active Allergy Reactions Criticality Noted Date Comments Banana Anaphylaxis High 04/19/2024 Tree Nuts Anaphylaxis High 04/19/2024 Medications No known medications Active Problems No known active problems Social History Tobacco Use Types Packs/Day Years Used Date Smoking Tobacco: Never Assessed Comments Unknown Sex and Gender Information Value Date Recorded Sex Assigned at Female 04/19/2024 12:51 PM EST Legal Sex Female 1:36 PM EDT Gender Identity Female 04/19/2024 12:51 PM EST Sexual Orientation Straight 04/19/2024 12 :51 PM EST Obstetrics History Last Filed Vital Signs Vital Sign Reading Time Taken Comments Blood Pressure 109/59 04/19/2024 11:51 AM EST Pulse 80 04/19/2024 11:51 AM EST Temperature 36.7 C (98.1 F) 04/19/2024 11:51 AM EST Respiratory Rate 18 04/19/2024 11:51 AM EST Oxygen Saturation 98% 04/19/2024 11:51 AM EST Inhaled Oxygen Concentration - - Weight 70.8 kg (156 lb) 04/19/2024 11:51 AM EST Height 149.9 cm (4' 11 ) 04/19/2024 11:51 AM EST Body Mass Index 31.51 04/19/2024 11:51 AM EST Plan of Treatment Health Maintenance Due Date Last Done Comments Gonorrhea/Chlamydia Screening 2001 Cervical Cancer Screening: Pap Smear 2022 Cholesterol Screening (Lipid Panel) 09/16/2023 HIV Screening 09/16/2023 Hepatitis C Screening 09/16/2023 Social Influencers of Health Screening 09/16/2023 COVID-19 Vaccine ( season) 2023 06/29/2023, 12/10/2020, 11/19/2020 Depression Screening 02/15/2024 Influenza Vaccine (#1) 2024 , 10/21/2021, 11/19/2020, Additional history exists DTaP,Tdap,and Td Vaccines (8 - Td or Tdap) 10/29/2031 10/28/2021, 10/19/2012, 07/04/2006, Additional history exists Pneumococcal Vaccine: Pediatrics (0 to 5 Years) and At-Risk Patients (6 to 49 Years) (2 of 2 - PCV20 or PCV21) 09/09/2051 02/26/2021, 01/23/2003, 03/08/2002, Additional history exists Hepatitis B Vaccines Completed 06/12/2002, 2001, 2001 HIB Vaccines Completed 01/23/2003, 02/15, 01/10/2002, Additional history exists IPV Vaccines Completed 07/04/2006, 05/16, 01/10/2002, Additional history exists MMR Vaccines Completed 07/04/2006, 09/18/2002 Varicella Vaccines Completed 07/04/2006, 09/18/2002 Hepatitis A Vaccines Completed 11/21/2015, 10/31/19 15 HPV Vaccines Completed 11/24/2016, 11/21/2015 Meningococcal ACWY Vaccine Completed 12/01/2017, Meningococcal B Vaccine Completed 10/29/2019, 12/28 RSV Immunization Patients Under 20 months Aged Out No longer eligible based on patient's age to complete this topic Insurance [facility] PLAN Care Teams Manager Athletics Relationship Specialty Start Date End Date Physician, Pcp Unknown PCP - General 04/19/24
--- OUTSIDE RECORDS SUMMARY | 2024-10-02 11:31 | XMS_ITS | Encounter Summary ---
Author Organization [facility] Address [address] [place] [address] Phone Care Team Providers Care Electrical Lineman Name Role Phone Eunice Nix MD Primary Care Provider [phone] Encounter Details Date Type Department Care Team (Late st Contact Info) Description 09/30/2016 Conversion Encounter [facility] [address] [place] [address] Social History Tobacco Use Types Packs/Day Years [...] on filedocumented in this encounter Care Teams Electrical Lineman Relationship Specialty Start Date End Date Eunice Nix MD [address] [place] [address] PCP - General Pediatrics 08/14/17 09/15/23 documented as of this encounter
[2024-12-25 09:24] VITALS: BP 100/72; PULSE 87; RESP 16; TEMP 36.8; O2SAT 98; BMI 33.5
--- NOTE | 2024-12-25 09:24 | MHC.PC.OV ---
Vital Signs 12/25/24 09:24 Height 4 ft 11 in Weight 166 lb BMI 33.5 BP 100/72 Blood Pressure Location Lt brachial Position Sitting Respiration 16 Pulse 87 Pulse Source Pulse Oximeter Temp 98.2 F Temp Source Oral Pulse Oximetry (%) 98 Oxygen Delivery Method Room Air Intake Visit Reasons: BARREL LEVELER/PErequest-r/scheduled from 10/02 Tapeman Required: No Is last menstrual period known: Yes Last menstrual period: 12/21/24 Allergies No Known Allergies Allergy (Verified 12/25/24 09:44) Medication List - Last Reconciled 12/25/24 by Marlene Mcginnis MD albuterol sulfate 2.5 mg (3 mL) inhalation Q6H PRN NS betamethasone dipropionate 0.05% topical BID PRN cetirizine 10 mg PO BID cholecalciferol (vitamin D3) (Vitamin D3) 50 mcg PO DAILY fluticasone propionate 50 mcg/actuation sprays intranasal hydroxyzine HCl 25 mg PO TID mometasone-formoterol 200-5 mcg/actuation (Dulera) 2 puffs inhalation BID 30 days montelukast 10 mg PO DAILY 90 days nebulizers As directed roflumilast (Daliresp) 500 mcg PO DAILY 30 days tiotropium bromide 2.5 mcg/actuation (Spiriva Respimat) 2 puffs inhalation DAILY 30 days triamcinolone acetonide 0.1% topical BID PRN Ventolin HFA 90 mcg/actuation (albuterol sulfate) 2 puffs inhalation Q6H PRN NS Tobacco use date assessed: 12/25/24 Dental Screening Dental Screen Date: 12/25/24 Did you have a dental visit in the last 12 months?: Yes Did you have a dental problem in the last 6 months where you did not have access to dental care?: No Was dental information given to patient?: Patient has dentist HPI BARREL LEVELER/PErequest-r/scheduled from 10/02 HPI Details 24-year-old lady, new to practice, with past medical history significant for asthma COPD overlap syndrome, followed by Dr. Khan [facility] Medical History (Updated 12/25/24 @ 10:13 by Marlene Mcginnis MD) History of vitamin D deficiency History of depression Asthma-COPD overlap syndrome Allergies Atopic dermatitis Chronic allergic rhinitis Surgical History (Updated 12/25/24 @ 09:48 by Marlene Mcginnis MD) No pertinent past surgical history Family History (Updated 12/25/24 @ 09:57 by Marlene Mcginnis MD) Mother Bronchial asthma Depression Brother Bronchial asthma Depression Maternal Grandmother Bronchial asthma Paternal Grandfather Colon cancer Social History Housing: Apartment Patient Tobacco Use Status: Never used Tobacco e-Cigarette/Vaping Use: Never Used service: No Current occupational status: employed Cognitive needs: No Hearing needs: No Vision needs: No Female Reproductive History Menstrual Date of last menstrual period: 12/21/24 control method: none Questionnaire PHQ-9 Over the last 2 weeks, how often have you been bothered by any of the following problems? 1. Little interest or pleasure in doing things: not at all 2. Feeling down, depressed, or hopeless: not at all 3. Trouble falling or staying asleep, or sleeping too much: more than half the days 4. Feeling tired or having little energy: several days 5. Poor appetite or overeating: nearly every day (stress eating) 6. Feeling bad about yourself - or that you are a failure or have let yourself or your family down: not at all 7. Trouble concentrating on things, such as reading the newspaper or watching television: not at all 8. Moving or speaking so slowly that other people could have noticed. Or the opposite - being so fidgety or restless that you have been moving around a lot more than usual: not at all 9. Thoughts that you would be better off or of hurting yourself in some way: not at all Total score: 6 Depression Screening Interpretation: Negative Depression Screening Done: Yes 47530 - PHQ-9 Billing: Yes Source: Developed by Drs. Sonny Omalley, Sierra Pittman, Wander Greco and colleagues, with an educational janusz from [employer]. Thrive Questionnaire Date Thrive assessed: 12/25/24 I am a: Patient What is your living situation today?: I have a steady place to live Within the past 12 months, did the food you bought not last and you didn't have the money to get more?: Never true Within the past 12 months, did you worry whether your food would run out before you got money to buy more?: Never true Do you have trouble paying for medicines?: I choose not to answer this question Do you have trouble getting transportation to medical appointments?: I choose not to answer this question Do you have trouble paying your heating and electricity bill?: Yes Do you have trouble taking care of your child, family member or friend?: I choose not to answer this question Do you have trouble with day-to-day activities such as bathing, preparing meals, shopping, managing finances, etc.?: No Are you currently unemployed and looking for a job?: No Are you interested in more education?: Yes Please select the resources that you would like help with: None Currently or been in a relationship where the following occur: No concerns reported THRIVE Score: 1 AUDIT C Alcohol Use Questionnaire (AUDIT-C) 1. How often do you have a drink containing alcohol?: Monthly or less (mixed drinks) 2. How many drinks containing alcohol do you have on a typical day when you are drinking?: 1 or 2 3. How often do you have six or more drinks on one occasion?: Less than monthly Total Score: 2 FRANCESCA-7 AMB Questionnaire FRANCESCA-7 Date FRANCESCA - 7 assessed: 12/25/24 Feeling nervous, anxious, or on edge: 2 = More than half the days Not being able to stop or control worryin = Nearly every day Worrying too much about different things: 3 = Nearly every day Trouble relaxin = Several days Being so restless that it is hard to sit still: 2 = More than half the days Becoming easily annoyed or irritable: 3 = Nearly every day Feeling afraid as if something awful might happen: 3 = Nearly every day Total FRANCESCA-7 score (0-4 normal; 5-9 mild; 10-14 moderate; 15-21 severe): 17 Source: Developed by Drs. Sonny Omalley, Sierra Pittman, Wander Greco and colleagues, with an educational janusz from [employer]. FRANCESCA-7 Assessment Billing FRANCESCA-7 Assessment Tool: FRANCESCA-7 Assessment 86696 ACT Questionnaire In the past 4 weeks, how much of the time did your asthma keep you from getting as much done at work, school or at home?: A little of the time During the past 4 weeks, how often have you had shortness of breath?: 1-2 times a week During the past 4 weeks, how often did your asthma symptoms wake you up at night or earlier than usual in the morning?: Once or twice per week During the past 4 weeks, how often have you had to use your rescue inhaler or nebulizer medication?: 2-3 times a week How would you rate your asthma control during the past 4 weeks?: Well controlled Score: 19 Physical exam (Primary Care) Vital Signs: Last Vital Signs Temp 98.2 F 12/25/24 09:24 Pulse 87 12/25/24 09:24 Resp 16 12/25/24 09:24 BP 100/72 12/25/24 09:24 Pulse Ox 98 12/25/24 09:24 Oxygen Delivery Method Room Air 12/25/24 09:24 BMI result Body Mass Index 33.5 Tobacco/Smoking Status: Tobacco use Status Tobacco use date assessed 12/25/24 12/25/24 09:34 Patient Tobacco Use Status Never used Tobacco 12/25/24 09:26 e-Cigarette/Vaping Use Never Used 12/25/24 09:34 PHQ-9: PHQ-9 Score PHQ-9: Total score 12 12/25/24 09:34 Depression Screening Interpretation: Negative Thrive Assessment: Date of Thrive Assessment Date Thrive assessed 12/25/24 12/25/24 09:34 Currently or been in a relationship where the following occur: No concerns reported Advance Care Planning discussion: Completed/Scanned Date of discussion: 12/25/24 Who was present: Patient Forms completed: Health Care Proxy Time spent: 16-45 minutes Actual minutes spent: 2 Office Procedures Flu Questionnaire Does the patient have a severe egg allergy?: No Does the patient have severe life threatening allergies?: No Does the patient have a fever or illness today?: No Has the patient ever had Guillain-[place] Syndrome?: No Has the patient ever had any past reaction to a flu shot?: No Immunizations Fluarix [id number] (PF) 45 mcg (15 mcg x 3)/0.5 mL IM syringe Performing Provider: Marlene Mcginnis MD Performing Location: [facility] [place] Administered by: Silvia Harley CMA on 12/25/24 09:38 Dose Route Admin Location Dispensed Lot Number Expiration Date NDC Yard General Car Supervisor 0.5 mL IM Left Deltoid 0.5 mL [id number] 08/13/25 [id number] [place] VIS Given Date VIS Provided VIS Publication Date 12/25/24 Single Vaccine 24 Eligibility Eligibility Date Funding Source Not VFC Eligible 12/25/24 Private Coding Level of Care Code New Pt Prev Care 18-39yr(55118 Diagnoses Chronic allergic rhinitis J30.9 Asthma-COPD overlap syndrome J44.89 Flexural atopic dermatitis L20.89 Atopic dermatitis type: flexural Screening for malignant neoplasm of cervix Z12.4 Encounter for counseling regarding contraception Z30.09 Advance directive discussed with patient Z71.89 Annual visit for general adult medical examination with abnormal findings Z00.01 Additional Codes FRANCESCA-7 Assessment Billing - FRANCESCA-7 Assessment Tool: FRANCESCA-7 Assessment 13220 ([id number]) PHQ-9 - 03674 - PHQ-9 Billing: Yes ([id number]) Vital Signs *Quality* - Advance Care Planning discussion: Completed/Scanned ([id number]) Vital Signs *Quality* - Time spent: 16-45 minutes ([id number]) Assessment & Plan Assessment & Plan (1) Chronic allergic rhinitis: Code(s): J30.9 - Allergic rhinitis, unspecified Category: Medical (2) Asthma-COPD overlap syndrome: Code(s): J44.89 - Other specified chronic obstructive pulmonary disease Category: Medical (3) Atopic dermatitis: Code(s): L20.9 - Atopic dermatitis, unspecified Category: Medical Qualifiers: Atopic dermatitis type: flexural Qualified Code(s): L20.89 - Other atopic dermatitis Plan: Followed at [facility] (4) Screening for malignant neoplasm of cervix: Code(s): Z12.4 - Encounter for screening for malignant neoplasm of cervix Plan: Patient requests referral to [facility] with referral ordered, closer to for her initial cervical cancer screening and requesting counseling with regards to control (5) Encounter for counseling regarding contraception: Code(s): Z30.09 - Encounter for other general counseling and advice on contraception Plan: Referral to [facility] with referral ordered (6) Advance directive discussed with patient: Code(s): Z71.89 - Other specified counseling (7) Annual visit for general adult medical examination with abnormal findings: Code(s): Z00.01 - Encounter for general adult medical examination with abnormal findings Plan: Flu vaccine given today. Orders: Orders Influenza [id number] Immunization Today Z23 - Encounter for immunization Aspartate Amino Transferase Today Z13.1 - Encounter for screening for diabetes mellitus, Z13.220 - Encounter for screening for lipoid disorders, Z86.39 - Personal history of other endocrine, nutritional and metabolic disease Lipid Panel Today Z13.1 - Encounter for screening for diabetes mellitus, Z13.220 - Encounter for screening for lipoid disorders, Z86.39 - Personal history of other endocrine, nutritional and metabolic disease Vitamin D 25-OH Total Today Z13.1 - Encounter for screening for diabetes mellitus, Z13.220 - Encounter for screening for lipoid disorders, Z86.39 - Personal history of other endocrine, nutritional and metabolic disease Basic Metabolic Panel Fasting Today Z13.1 - Encounter for screening for diabetes mellitus, Z13.220 - Encounter for screening for lipoid disorders, Z86.39 - Personal history of other endocrine, nutritional and metabolic disease Alanine Aminotransferase Today Z13.1 - Encounter for screening for diabetes mellitus, Z13.220 - Encounter for screening for lipoid disorders, Z86.39 - Personal history of other endocrine, nutritional and metabolic disease Referrals SHEET ROLLER OPERATOR Referral Z12.4 - Encounter for screening for malignant neoplasm of cervix, Z30.09 - Encounter for other general counseling and advice on contraception
== END 2024-12-25 10:13 | disposition home or self-care (01) ==
PROVIDERS: PCP Internal Medicine; Visit Provider Internal Medicine
DX: Z23 Encounter for immunization (principal)

== ENCOUNTER → 2024-12-25 08:59 | Outpatient (BNVA) | payer OTHER, SELFPAY | PROVIDERS: PCP Internal Medicine; Visit Provider Internal Medicine | DX: Z00.01 Encounter for general adult medical examination with abnormal findings (principal); Z23 Encounter for immunization; Z12.4 Encounter for screening for malignant neoplasm of cervix; Z30.09 Encounter for other general counseling and advice on contraception; J44.89 Other specified chronic obstructive pulmonary disease; L20.89 Other atopic dermatitis; Z71.89 Other specified counseling; J30.9 Allergic rhinitis, unspecified; F41.1 Generalized anxiety disorder | CPT/HCPCS: 90471; 90656; 96127; 96160; 99385; 99497 ==

== ENCOUNTER 2025-02-06 11:01 | Outpatient (AMB) | payer OTHER, SELFPAY ==
--- OUTSIDE RECORDS SUMMARY | 2024-10-06 06:00 | XMS_ITS ---
Author Organization [facility] Address [address] [place] [address] Care Team Providers Care Glove Operator Name Role Phone GREGG LOUISE Unavailable [phone] REASON FOR VISIT Counseling/Testing Social History Sex Assigned At : Social History Observation Description Sex Assigned At Female Encounters Encounter Location Date Provider Diagnosis [facility] [address] [place] [address] [place] [id number] 10/06/2024 GREGG LOUISE Plan Of Treatment No Information Progress Notes * KEYANAJerilynriosearleneDOB: 2 (24 yo F)Acc No.[id number]:10/06/2024 Patient: Shanta Campo Provider: Thomas LOUISE :2000 A ge:24 Y S ex:Female Date:10/06/2024 Address:[address] [place], [place] [id number] Subjective: * Chief Complaints: * C ounseling/Testing * Electronic signature of HUMAIRA LOUISE CNM on 02/06/2025 at 11:07 AM EST Sign off status: Pending * Provider: Thomas LOUISE Date: 0 10/06/2024 Generated for Odalis solis/Tracy/eTld on: 1 04/09/2024 11:07 AM EST
--- OUTSIDE RECORDS SUMMARY | 2025-02-06 11:07 | XMS_ITS | Encounter Summary ---
Author Organization [facility] Address [address] [place] [address] Phone Care Team Providers Care Director Phone Name Role Phone Eunice Nix MD Primary Care Provider [phone] Reason for Visit * Reason Onset Date Comments Follow up asthma 11/15/2018 Encounter Details Date Type Department Care Team (Late st Contact Info) Description 11/15/2018 Patient Outreach [facility] [place] [address] [place] [address] Eunice Nix MD [address] [place] [address] Follow up asthma Social History Tobacco Use [...] filedocumented in this encounter Care Teams Director Phone Relationship Specialty Start Date End Date Eunice Nix MD [address] [place] [address] PCP - General Pediatrics 08/14/17 09/15/23 documented as of this encounter
--- OUTSIDE RECORDS SUMMARY | 2025-02-06 11:07 | XMS_ITS | Encounter Summary ---
Author Organization [facility] Address [address] [place] [address] Phone Care Team Providers Care Chainstitch Elastic Attacher Name Role Phone Eunice Nix MD Primary Care Provider [phone] Encounter Details Date Type Department Care Team (Late st Contact Info) Description 07/19/2016 Documentation [facility] [place] Family Medicine [address] [place] [address] Family Medicine, Physician [address] [place], [place] [address] Social History Tobacco Use Types Packs/Day Years [...] on filedocumented in this encounter Care Teams Chainstitch Elastic Attacher Relationship Specialty Start Date End Date Eunice Nix MD [address] [place] [address] PCP - General Pediatrics 08/14/17 09/15/23 documented as of this encounter
--- OUTSIDE RECORDS SUMMARY | 2025-02-06 11:07 | XMS_ITS | Encounter Summary ---
Author Organization [facility] Address [address] [place] [address] Phone Care Team Providers Care Data Transcriber Name Role Phone Eunice Nix MD Primary Care Provider Reason for Visit * Reason Onset Date Comments Home Asthma Visit 09/12/2018 Encounter Details Date Type Department Care Team (Late st Contact Info) Description 09/12/2018 Patient Outreach [facility] [place] [address] [place] [address] Eunice Nix MD [address] [place] [address] Home Asthma Visit Social History Tobacco Use [...] on filedocumented in this encounter Care Teams Data Transcriber Relationship Specialty Start Date End Date Eunice Nix MD [address] [place] [address] PCP - General Pediatrics 08/14/17 09/15/23 documented as of this encounter
--- OUTSIDE RECORDS SUMMARY | 2025-02-06 11:07 | XMS_ITS | Encounter Summary ---
Author Organization [facility] Address [address] [place] [address] Phone Care Team Providers Care Helper Teacher Name Role Phone Eunice Nix MD Primary Care Provider [phone] Reason for Visit * Reason Onset Date Comments Confirm Home Asthma Visit 09/07/2018 Encounter Details Date Type Department Care Team (Late st Contact Info) Description 09/07/2018 Patient Outreach [facility] [place] [address] [place] [address] Eunice Nix MD [address] [place] [address] Confirm Home Asthma Visit Social History Tobacco [...] on filedocumented in this encounter Care Teams Helper Teacher Relationship Specialty Start Date End Date Eunice Nix MD [address] [place] [address] PCP - General Pediatrics 08/14/17 09/15/23 documented as of this encounter
--- OUTSIDE RECORDS SUMMARY | 2025-02-06 11:07 | XMS_ITS | Encounter Summary ---
Author Organization [facility] Address [address] [place] [address] Phone Care Team Providers Care Trim Crew Supervisor Name Role Phone Eunice Nix MD Primary Care Provider [phone] Reason for Visit * Reason Onset Date Comments Schedule home asthma visit 08/29/2018 Encounter Details Date Type Department Care Team (Late st Contact Info) Description 08/29/2018 Patient Outreach [facility] [place] [address] [place] [address] Eunice Nix MD [address] [place] [address] Schedule home asthma visit Social History Tobacco [...] on filedocumented in this encounter Care Teams Trim Crew Supervisor Relationship Specialty Start Date End Date Eunice Nix MD [address] [place] [address] PCP - General Pediatrics 08/14/17 09/15/23 documented as of this encounter
--- OUTSIDE RECORDS SUMMARY | 2025-02-06 11:07 | XMS_ITS | Encounter Summary ---
Author Organization [facility] Address [address] [place] [address] Phone Care Team Providers Care Motor Scooter Repairer Name Role Phone Eunice Nix MD Primary Care Provider [phone] Encounter Details Date Type Department Care Team (Late st Contact Info) Description 05/21/2016 Documentation [facility] [place] Family Medicine [address] [place] [address] Family Medicine, Physician [address] [place] [address] Social History Tobacco Use Types Packs/Day Years [...] on filedocumented in this encounter Care Teams Motor Scooter Repairer Relationship Specialty Start Date End Date Eunice Nix MD [address] [place] [address] PCP - General Pediatrics 08/14/17 09/15/23 documented as of this encounter
--- OUTSIDE RECORDS SUMMARY | 2025-02-06 11:07 | XMS_ITS | Encounter Summary ---
Author Organization [facility] Address [address] [place] [address] Phone Care Team Providers Care Supervisor Final Name Role Phone Eunice Nix MD Primary Care Provider [phone] Reason for Visit * Reason Onset Date Comments home asthma visit 2018 Encounter Details Date Type Department Care Team (Late st Contact Info) Description 2018 Patient Outreach [facility] [place] [address] [place] [address] Eunice Nix MD [address] [place] [address] home asthma visit Social History Tobacco Use [...] on filedocumented in this encounter Care Teams Supervisor Final Relationship Specialty Start Date End Date Eunice Nix MD [address] [place] [address] PCP - General Pediatrics 08/14/17 09/15/23 documented as of this encounter
--- OUTSIDE RECORDS SUMMARY | 2025-02-06 11:07 | XMS_ITS | Encounter Summary ---
Author Organization [facility] Address [address] [place] [address] Phone Care Team Providers Care Plant Maintenance Worker Name Role Phone Eunice Nix MD Primary Care Provider [phone] Encounter Details Date Type Department Care Team (Late st Contact Info) Description 12/08/2011 Documentation [facility] [place] Family Medicine [address] [place] [address] Family Medicine, Physician [address] [place], [place] [address] Social History Tobacco Use Types Packs/Day Years [...] on filedocumented in this encounter Care Teams Plant Maintenance Worker Relationship Specialty Start Date End Date Eunice Nix MD [address] [place] [address] PCP - General Pediatrics 08/14/17 09/15/23 documented as of this encounter
--- OUTSIDE RECORDS SUMMARY | 2025-02-06 11:07 | XMS_ITS | Encounter Summary ---
Author Organization [facility] Address [address] [place] [address] Phone Care Team Providers Care Market Research Analyst Name Role Phone Eunice Nix MD Primary Care Provider [phone] Reason for Visit * Reason Comments Med Refill Encounter Details Date Type Department Care Team (Late st Contact Info) Description 05/28/2021 Refill [facility] [place] [address] [place] [address] Clarisse Falcon MD [address] [place] [address] Intrinsic atopic dermatitis Social History Tobacco Use [...] dermatitis documented in this encounter Care Teams Market Research Analyst Relationship Specialty Start Date End Date Eunice Nix MD [address] [place] [address] PCP - General Pediatrics 08/14/17 09/15/23 documented as of this encounter
--- OUTSIDE RECORDS SUMMARY | 2025-02-06 11:07 | XMS_ITS | Encounter Summary ---
Author Organization [facility] Address [address] [place] [address] Phone Care Team Providers Care District Court Bailiff Name Role Phone Eunice Nix MD Primary Care Provider [phone] Encounter Details Date Type Department Care Team (Late st Contact Info) Description 09/30/2016 Conversion Encounter [facility] [address] [place] [address] Social History Tobacco Use Types Packs/Day Years [...] on filedocumented in this encounter Care Teams District Court Bailiff Relationship Specialty Start Date End Date Euince Nix MD [address] [place] [address] PCP - General Pediatrics 08/14/17 09/15/23 documented as of this encounter
--- OUTSIDE RECORDS SUMMARY | 2025-02-06 11:07 | XMS_ITS | Encounter Summary ---
Author Organization [facility] Address [address] [place] [address] Phone Care Team Providers Care Asphalt Roller Operator Name Role Phone Eunice Nix MD Primary Care Provider [phone] Encounter Details Date Type Department Care Team (Late st Contact Info) Description 09/03/2016 Documentation [facility] [place] Family Medicine [address] [place] [address] Family Medicine, Physician [address] [place], [place] [address] Social History Tobacco Use Types Packs/Day Years [...] on filedocumented in this encounter Care Teams Asphalt Roller Operator Relationship Specialty Start Date End Date Eunice Nix MD [address] [place] [address] PCP - General Pediatrics 08/14/17 09/15/23 documented as of this encounter
--- OUTSIDE RECORDS SUMMARY | 2025-02-06 11:07 | XMS_ITS | Encounter Summary ---
Author Organization [facility] Address [address] [place] [address] Phone Care Team Providers Care Route Manager Name Role Phone Eunice Nix MD Primary Care Provider [phone] Encounter Details Date Type Department Care Team (Late st Contact Info) Description 05/31/2016 Documentation [facility] [place] [address] [place] [address] Family Medicine, Physician [address] [place] [address] Social History Tobacco Use Types Packs/Day Years [...] on filedocumented in this encounter Care Teams Route Manager Relationship Specialty Start Date End Date Eunice Nix MD [address] [place] [address] PCP - General Pediatrics 08/14/17 09/15/23 documented as of this encounter
--- OUTSIDE RECORDS SUMMARY | 2025-02-06 11:08 | XMS_ITS | Encounter Summary ---
Author Organization [facility] Address [address] [place] [address] Phone Care Team Providers Care Waste Baler Name Role Phone Eunice Nix MD Primary Care Provider Reason for Visit * Reason Comments Med Refill Encounter Details Date Type Department Care Team (Late st Contact Info) Description 07/18/2022 Refill [facility] [address] [place] [address] Osmin Slaughter MD Intrinsic atopic dermatitis; Severe persistent asthma with [...] exacerbation documented in this encounter Care Teams Waste Baler Relationship Specialty Start Date End Date Eunice Nix MD [address] [place] [address] PCP - General Pediatrics 08/14/17 09/15/23 documented as of this encounter
--- OUTSIDE RECORDS SUMMARY | 2025-02-06 11:08 | XMS_ITS | Clinical Summary ---
Author Organization [facility] Address [address] [place] [address] Phone Care Team Providers Care Administrative Office Manager Name Role Phone Unavailable Primary Care [...] 16 mL, 5 Refills, 05/06/21 10:25:00 EDT, [facility]/pharmacy #[id number], 30, TAKE 2 SPRAYS IN EACH NOSTRIL TWICE DAILY, 149.7, cm, 05/06/21 9:15:00 EDT, Height, 69.6, kg, 05/06/21 9:15:00 EDT, Dry Weight 05/07/19 22 Active mometasone-formo terol (Dulera) 200-5 MCG/ACT inhaler Inhale. 05/07/19 22 Active Tiotropium [place] Monohydrate (Spiriva Respimat) 2.5 MCG/ACT aerosol solution [...] handoff- Met with pt and mom at [facility], we spoke about current needs; including help with utilities, need for AC at home, asthma education and home visit. Home visit scheduled for 08/12/17 MADDI Cage Problem Noted Date Diagnosed Date [...] her substance use. She was referred to [facility] directly today and will head there [...] every day. Labs ordered, advised to call editor publications to discuss IUD. 03/07 - labs can [...] AM EST): Labs ordered, advised to call editor publications to discuss IUD. Current episode of major [...] not been able to connect with a curator zoological museum yet. We will asked the medical home care coordinating team to help assist her in making that contact. Assessment & Plan (05/28/2021 6:10 PM EDT): Will try a regimen of clindamycin and rifampin since she had a recurrence soon after treatment with doxycycline. Referring to [facility] dermatology for consult for consideration for [...] this. 05/11/2022- WHO with MM/to go to [facility] walk-in. Assessment & Plan (05/11/2022 3:45 PM EDT): 05/11/22-Pt. With ongoing symptoms of depression and recent onset of daily panic attacks. Pt. Feels she needs more behavioral health support. Call made to [facility] crisis and pt. To go today for further assessment at 2pm. Pt. To contact us if needs further support. Assessment & Plan (05/11/2022 12:23 PM EDT): WHO with Delores Hallman/to go to [facility] walk-in. Assessment & Plan (02/05/2022 9:08 [...] and PHQ9. Continue with IB with Honorio Almodovarjessica. Assessment & Plan (03/13/2020 12:01 PM EST): [...] with Augmentin and I&D by Sue Nicole, [facility] pedi surgery 08/01. Recurrence 02/01, seen [...] moves, and 2 mo stay in a long-term at one point. Father has been in [...] anxiety, WHO with Delores Hallman/to go to [facility] walk-in Assessment & Plan (06/29/2023 12:15 [...] anxiety, WHO with Delores Hallman/to go to [facility] walk-in Assessment & Plan (02/05/2022 9:04 [...] ahead if needing to cancel/change. Continue with [facility] with Honorio Mendoza. Assessment & Plan [...] antibody) started 04/20/23. Since 02/04, followed by [facility] pulm (Dr. Khan). Was steroid dependent in 2014 and has high allergic component to her asthma. PICU stays 04/27, 12/29, 04/30, 03/03 (Flu pos), 06/02. Was on pred for most of 2014. Was seeing until he retired. Now followed by [facility]/ Dr. Judd, [facility]. Started immunotherapy with Dr. Judd for [...] patient says this was helpful. Last f/u [facility] pulm (Dr. Estevez/Dr. Ornelas) 11/06/21- continue [...] Plan (05/11/2022 12:04 PM EDT): Continue with package checker. Assessment & Plan (01/15/2022 7:12 PM EST): Given prednisone and follow up with package checker, Dr. Nix, using albuterol Assessment & Plan (08/05/2021 2:37 PM EDT): She actually does not sound bad today. I have encouraged her to finish her prednisone burst at 60 mg daily for for 5 days. I have advised her to contact her package checker to let them know that she needed to take the prednisone now and needed to use it this past May. Continue with Dulera, Spiriva, montelukast per usual plan. Continue cetirizine and Flonase. Our medical home care coordinating team will reach out to her in a couple of days to make sure she is feeling better and that she has touch base with her package checker. Assessment & Plan (02/26/2021 10:54 AM EST): [...] (12/31/2019 9:44 AM EST): Has appt with [facility] pulm on Tue. Compliance is good last [...] indoor work opportunities. Recommend following up with package checker due to poor rescue inhaler response and [...] totally better. Has f/u with pulm at [facility] shortly per mom. Discussed with CC [...] flares and missed appts. Last visit with Parking Enforcement Manager, Dr. Nunez 02/21/19- allergies are likely OAS [...] Trish. I also advised she call her vaccines solutions specialist for f/u. Assessment & Plan (12/31/2019 9:45 [...] head during a spinning ride at the [employer]). Assessment & Plan (01/22/2019 2:59 PM EST): Reports this is much better. Just getting occasional small HAs that feel more normal to her. Other symptoms have been gone 1-2 weeks ago. Has appt at [facility] on 01/26, may cancel it. Assessment & Plan (01/01/2019 5:12 PM EST): Continues with significant symptoms (THOMAS, dizziness, nausea). I referred to neuro last week, though will try for concussion clinic (closest is [facility] given this is not sports related). If that is not possible, will try for adult neuro at [facility]. Referrals aware to do this JAY JAY. [...] needs using nurse-based model 04/27/2014 06/23/2021 Immunizations Immunization Administration Dates Next Due COVID-19 Pfizer, monovalent, [...] 67 06/29/2023 10:49 AM EDT Temperature 36.3 C (97.4 F) 02/05/2022 8:38 AM EST Respiratory Rate 20 04/03/2019 1:34 PM EST Oxygen Saturation 97% 01/15/2022 11:33 AM EST Inhaled Oxygen Concentration - - Weight 71.2 kg (157 lb) 06/29/2023 10:49 AM EDT Height 149.2 cm (4' 10.75 ) 06/29/2023 10:49 AM EDT Body Mass Index 31.98 06/29/2023 10:49 AM EDT Plan of Treatment Health Maintenance Due Date Last Done Comments Influenza Vaccines (#1) 2024 06/29/19 24, 10/21/2021, 11/19/2020, Additional history exists COVID-19 Vaccine (2024-03 6 season) 2024 06/29/2023, 12/10/2020, 11/19/2020 DTaP,Tdap,and Td Vaccines (8 [...] Additional history exists Procedures * Due to [place] state law, this organization might not be sharing sensitive test results. Procedure Name Priority Date/Time Associated Diagnosis Comments CHLAMYDIA AND GONORRHEA, AMPLIFIED Routine 06/29/2023 11:57 AM EDT Encounter for screening examination for chlamydial infection from Last 3 Months or Most Recently Relevant to Health Maintenance Results * Due to [place] state law, this organization might not be sharing sensitive test results. * Chlamydia and Gonorrhoea, Amplified (06/29/2023 11:57 AM EDT) C trach FRANCK Negative Negative [facility] N gonorrhoeae FRANCK Negative Negative [facility] Urine (Urine) 06/29/2023 11: 57 AM EDT 06/29/2023 Comment:UR Narrative [facility] - 07/01/2023 12:06 AM EDT Performed at: 01 - [facility] [id number] [employer] Coating Supervisor: Zamzam Bejarano MD, Phone: [phone] us Eunice Nix MD LAB MICROBIOLOGY - GENERAL OR DERABLES Final Result [facility] [address] [place] [address] from Last 3 Months or Most Recently Relevant to Health Maintenance
--- OUTSIDE RECORDS SUMMARY | 2025-02-06 11:08 | XMS_ITS | Encounter Summary ---
Author Organization [facility] Address [address] [place] [address] Phone Care Team Providers Care Senior Mortgage Loan Processor Name Role Phone Eunice Nix MD Primary Care Provider [phone] Reason for Visit * Reason Onset Date Comments Schedule home asthma visit 08/23/2018 Encounter Details Date Type Department Care Team (Late st Contact Info) Description 08/23/2018 Patient Outreach [facility] [address] [place] [address] Eunice Nix MD [address] [place] [address] Schedule home asthma visit Social History Tobacco [...] on filedocumented in this encounter Care Teams Senior Mortgage Loan Processor Relationship Specialty Start Date End Date Eunice Nix MD [address] [place] [address] PCP - General Pediatrics 08/14/17 09/15/23 documented as of this encounter
--- OUTSIDE RECORDS SUMMARY | 2025-02-06 11:08 | XMS_ITS | Encounter Summary ---
Author Organization [facility] Address [address] [place] [address] Phone Care Team Providers Care Outside Laborer Name Role Phone Eunice Nix MD Primary Care Provider [phone] Reason for Visit * Reason Comments Med Refill Encounter Details Date Type Department Care Team (Late st Contact Info) Description 12/21/2016 Refill [facility] - [address] [address] Erlinda Valdez MD Social History Tobacco Use [...] on filedocumented in this encounter Care Teams Outside Laborer Relationship Specialty Start Date End Date Eunice Nix MD [address] [place] [address] PCP - General Pediatrics 08/14/17 09/15/23 documented as of this encounter
--- OUTSIDE RECORDS SUMMARY | 2025-02-06 11:08 | XMS_ITS | Encounter Summary ---
Author Organization [facility] Address [address] [place] [address] Phone Care Team Providers Care Implementation Specialist Payroll Name Role Phone Eunice Nix MD Primary Care Provider [phone] Reason for Visit * Reason Onset Date Comments Met with pt at pulmonary visit 06/15/2018 Encounter Details Date Type Department Care Team (Late st Contact Info) Description 06/15/2018 Patient Outreach [facility] [address] [place] [address] Eunice Nix MD [address] [place] [address] Met with pt at pulmonary visit Social [...] on filedocumented in this encounter Care Teams Implementation Specialist Payroll Relationship Specialty Start Date End Date Eunice Nix MD [address] [place] [address] PCP - General Pediatrics 08/14/17 09/15/23 documented as of this encounter
--- OUTSIDE RECORDS SUMMARY | 2025-02-06 11:08 | XMS_ITS | Encounter Summary ---
Author Organization [facility] Address [address] [place] [address] Phone Care Team Providers Care Card Hanger Name Role Phone Eunice Nix MD Primary Care Provider [phone] Reason for Visit * Reason Onset Date Comments Schedule Home asthma visit 08/30/2018 Encounter Details Date Type Department Care Team (Late st Contact Info) Description 08/30/2018 Patient Outreach [facility] [address] [place] [address] Eunice Nix MD [address] [place] [address] Schedule Home asthma visit Social History Tobacco [...] on filedocumented in this encounter Care Teams Card Hanger Relationship Specialty Start Date End Date Eunice Nix MD [address] [place] [address] PCP - General Pediatrics 08/14/17 09/15/23 documented as of this encounter
--- OUTSIDE RECORDS SUMMARY | 2025-02-06 11:08 | XMS_ITS | Encounter Summary ---
Author Organization [facility] Address [address] [place], [place] [phone] Phone Care Team Providers Care Egg Packer Name Role Phone Eunice Nix MD Primary Care Provider [phone] Reason for Visit * Reason Comments Med Refill Encounter Details Date Type Department Care Team (Late st Contact Info) Description 04/15/2017 Refill [facility] [address] [place] [address] Jessica Estes MD [address] [place] [address] Intrinsic eczema (Primary Dx) Social History Tobacco [...] Primary documented in this encounter Care Teams Egg Packer Relationship Specialty Start Date End Date Eunice Nix MD [address] [place] [address] PCP - General Pediatrics 08/14/17 09/15/23 documented as of this encounter
--- OUTSIDE RECORDS SUMMARY | 2025-02-06 11:08 | XMS_ITS | Encounter Summary ---
Author Organization [facility] Address [address] [place] [address] Phone Care Team Providers Care Drill Rig Operator Helper Name Role Phone Eunice Nix MD Primary Care Provider [phone] Encounter Details Date Type Department Care Team (Late st Contact Info) Description 04/19/2016 Documentation [facility] Medicine [address] [place] [address] Family Medicine, Physician [address] [place] [address] Social History Tobacco Use Types Packs/Day Years [...] on filedocumented in this encounter Care Teams Drill Rig Operator Helper Relationship Specialty Start Date End Date Eunice Nix MD [address] [place] [address] PCP - General Pediatrics 08/14/17 09/15/23 documented as of this encounter
--- OUTSIDE RECORDS SUMMARY | 2025-02-06 11:08 | XMS_ITS | Encounter Summary ---
Author Organization [facility] Address [address] [place] [address] Phone Care Team Providers Care All Around Gear Machine Operator Name Role Phone Eunice Nix MD Primary Care Provider [phone] Reason for Visit * Reason Onset Date Comments Schedule 3rd home asthma visit 07/17/2018 Encounter Details Date Type Department Care Team (Late st Contact Info) Description 07/17/2018 Patient Outreach [facility] [address] [place] [address] Eunice Nix MD [address] [place] [address] Schedule 3rd home asthma visit Social History [...] on filedocumented in this encounter Care Teams All Around Gear Machine Operator Relationship Specialty Start Date End Date Eunice Nix MD [address] [place] [address] PCP - General Pediatrics 08/14/17 09/15/23 documented as of this encounter
--- OUTSIDE RECORDS SUMMARY | 2025-02-06 11:08 | XMS_ITS | Clinical Summary ---
Author Organization [facility] Address [address] [place] [address] Care Team Providers Care Quality Assurance Nurse Name Role Phone Eunice Nix MD Primary Care Provider [phone] Source Comments Please note that some or all of the patient's information could have additional privacy protections. State laws allow health care providers to render certain types of treatment to minors without parental consent. Please do not assume that this information can be shared solely by obtaining just theconsent of the patient's parent/guardian. Please determine if all or part of the patient's care wasrendered without parent/guardian involvement. And, if so, obtain the minor's consent prior to disclosure.[facility] Allergies Active Allergy Reactions Criticality Noted Date [...] 16 mL, 5 Refills, 05/06/21 10:25:00 EDT, [facility]/pharmacy #[id number], 30, TAKE 2 SPRAYS [...] Replace Required Details, Route to Pharmacy Electronically, [id number] 2 Active tiotropium bromide 2.5 mcg/actuation [...] 2008 ADOLESCENT HIV SCREENING 2014 COVID-19 Vaccine ( - 2023-2 5 season) 2024 INFLUENZA (#1) 2024 NIRSEVIMAB VACCINES UNDER 8 MONTHS Aged Out No longer eligible based on patient[id number] [facility] PUBLIC PLAN ([email or web address]) Care Teams Quality Assurance Nurse Relationship Specialty Start Date End Date Eunice Nix MD [address] [place] [address] [place] [address] PCP - General General Pediatrics 10/21/21
--- OUTSIDE RECORDS SUMMARY | 2025-02-06 11:08 | XMS_ITS | Encounter Summary ---
Author Organization [facility] Address [address] [place] [address] Phone Care Team Providers Care Director Of Market Analysis Name Role Phone Eunice Nix MD Primary Care Provider [phone] Encounter Details Date Type Department Care Team (Late st Contact Info) Description 05/08/2014 Documentation [facility] Family Medicine [address] [place] [address] Family Medicine, Physician [address] [place] [address] Social History Tobacco Use Types Packs/Day Years [...] in this encounter Care Teams Director Of Market Analysis Relationship Specialty Start Date End Date Eunice Nix MD [address] [place] [address] PCP - General Pediatrics 08/14/17 09/15/23 documented as of this encounter
--- OUTSIDE RECORDS SUMMARY | 2025-02-06 11:08 | XMS_ITS | Encounter Summary ---
Author Organization [facility] Address [address] [place] [address] Phone Care Team Providers Care Kick Press Setter Name Role Phone Eunice Nix MD Primary Care Provider Encounter Details Date Type Department Care Team (Late st Contact Info) Description 08/29/2018 Patient Outreach [facility] [address] [place] [address] Eunice Nix MD [address] [place] [address] Social History Tobacco Use Types Packs/Day Years [...] on filedocumented in this encounter Care Teams Kick Press Setter Relationship Specialty Start Date End Date Eunice Nix MD [address] [place] [address] PCP - General Pediatrics 08/14/17 09/15/23 documented as of this encounter
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
--- OUTSIDE RECORDS SUMMARY | 2025-02-06 11:08 | XMS_ITS | Encounter Summary ---
Author Organization [facility] Address [address] [place] [address] Phone Care Team Providers Care Business Librarian Name Role Phone Eunice Nix MD Primary Care Provider [phone] Encounter Details Date Type Department Care Team (Late st Contact Info) Description 01/21/2016 Documentation [facility] Family Medicine [address] [place] [address] Family Medicine, Physician [address] [place], [place] [address] Social History Tobacco Use Types Packs/Day Years [...] filedocumented in this encounter Care Teams Business Librarian Relationship Specialty Start Date End Date Eunice Nix MD [address] [place] [address] PCP - General Pediatrics 08/14/17 09/15/23 documented as of this encounter
--- OUTSIDE RECORDS SUMMARY | 2025-02-06 11:08 | XMS_ITS | Clinical Summary ---
Author Organization [facility] Address [address] [place] [address] Phone Care Team Providers Care Fiberglass Container Winding Operator Name Role Phone Physician, Pcp Unknown Primary [...] Orientation Straight 04/19/2024 12 :51 PM EST Last Filed Vital Signs Vital [...] 09/16/2023 Social Influencers of Health Screening 09/16/2023 Depression Screening 02/15/2024 COVID-19 Vaccine (4 - season) 2024 06/29/2023, 12/10/2020, 11/19/2020 Influenza Vaccine (#1) 2024 , 10/21/2021, 11/19/2020, Additional history exists DTaP,Tdap,and Td Vaccines (8 - Td or Tdap) 10/29/2031 10/28/2021, 10/19/2012, 07/04/2006, Additional history exists Pneumococcal Vaccine: Pediatrics (0 to 5 Years) and At-Risk Patients (6 to 49 Years) (2 of 2 - PCV20 or PCV21) 09/09/2051 02/26/2021, 01/23/2003, 03/08/2002, Additional history exists RSV Immunization Adult Patients (1 - 1-dose 75+ series) 2076 Hepatitis B Vaccines Completed 06/12/2002, 2001, 2001 [...] patient's age to complete this topic Insurance [employer] Care Teams Fiberglass Container Winding Operator Relationship Specialty Start Date End Date Physician, Pcp Unknown PCP - General 04/19/24
--- OUTSIDE RECORDS SUMMARY | 2025-02-06 11:08 | XMS_ITS | Encounter Summary ---
Author Organization [facility] Address [address] [place] [address] Phone Care Team Providers Care Director Market Intelligence Name Role Phone Eunice Nix MD Primary Care Provider [phone] Reason for Visit * Reason Onset Date Comments Follow Up Asthma 07/12/2018 Encounter Details Date Type Department Care Team (Late st Contact Info) Description 07/12/2018 Patient Outreach [facility] [place] [address] [place] [address] Eunice Nix MD [address] [place] [address] Follow Up Asthma Social History Tobacco Use [...] filedocumented in this encounter Care Teams Director Market Intelligence Relationship Specialty Start Date End Date Eunice Nix MD [address] [place] [address] PCP - General Pediatrics 08/14/17 09/15/23 documented as of this encounter
--- OUTSIDE RECORDS SUMMARY | 2025-02-06 11:08 | XMS_ITS | Encounter Summary ---
Author Organization [facility] Address [address] [place] [address] Phone Care Team Providers Care Foundation Relations Manager Name Role Phone Eunice Nix MD Primary Care Provider [phone] Encounter Details Date Type Department Care Team (Late st Contact Info) Description 05/11/2013 Documentation [facility] [place] Family Medicine [address] [place] [address] Family Medicine, Physician [address] [place] [address] Social History Tobacco Use Types Packs/Day Years [...] on filedocumented in this encounter Care Teams Foundation Relations Manager Relationship Specialty Start Date End Date Eunice Nix MD [address] [place] [address] PCP - General Pediatrics 08/14/17 09/15/23 documented as of this encounter
--- OUTSIDE RECORDS SUMMARY | 2025-02-06 11:08 | XMS_ITS | Encounter Summary ---
Author Organization [facility] Address [address] [place] [address] Phone Care Team Providers Care Dioramist Name Role Phone Eunice Nix MD Primary Care Provider [phone] Reason for Visit * Reason Onset Date Comments Schedule home asthma visit 08/16/2018 Encounter Details Date Type Department Care Team (Late st Contact Info) Description 08/16/2018 Patient Outreach [facility] [place] [address] [place] [address] Eunice Nix MD [address] [place] [address] Schedule home asthma visit Social History Tobacco [...] on filedocumented in this encounter Care Teams Dioramist Relationship Specialty Start Date End Date Eunice Nix MD [address] [place] [address] PCP - General Pediatrics 08/14/17 09/15/23 documented as of this encounter
--- OUTSIDE RECORDS SUMMARY | 2025-02-06 11:08 | XMS_ITS | Encounter Summary ---
Author Organization [facility] Address [address] [place] [address] Phone Care Team Providers Care Fish And Wildlife Scientific Aid Name Role Phone Eunice Nix MD Primary Care Provider [phone] Reason for Visit * Reason Comments Med Refill Encounter Details Date Type Department Care Team (Late st Contact Info) Description 08/19/2019 Refill [facility] [place] [address] [place] [address] Eunice Nix MD [address] [place] [address] Dysmenorrhea in adolescent Social History Tobacco Use [...] adolescent documented in this encounter Care Teams Fish And Wildlife Scientific Aid Relationship Specialty Start Date End Date Eunice Nix MD [address] [place] [address] PCP - General Pediatrics 08/14/17 09/15/23 documented as of this encounter
--- OUTSIDE RECORDS SUMMARY | 2025-02-06 11:08 | XMS_ITS | Encounter Summary ---
Author Organization [facility] Address [address] [place] [address] Phone Care Team Providers Care Parachute Repairer Name Role Phone Eunice Nix MD Primary Care Provider [phone] Reason for Visit * Reason Comments Med Refill Encounter Details Date Type Department Care Team (Late st Contact Info) Description 12/21/2019 Refill [facility] [address] [place] [address] Eunice Nix MD [address] [place] [address] Intrinsic eczema Social History Tobacco Use Types [...] eczema documented in this encounter Care Teams Parachute Repairer Relationship Specialty Start Date End Date Eunice Nix MD [address] [place] [address] PCP - General Pediatrics 08/14/17 09/15/23 documented as of this encounter
--- OUTSIDE RECORDS SUMMARY | 2025-02-06 11:08 | XMS_ITS | Encounter Summary ---
Author Organization [facility] Address [address] [place] [address] Phone Care Team Providers Care Channel Marketing Coordinator Name Role Phone Eunice Nix MD Primary Care Provider [phone] Encounter Details Date Type Department Care Team (Late st Contact Info) Description 09/24/2014 Documentation [facility] [place] Family Medicine [address] [place] [address] Family Medicine, Physician [address] [place], [place] [address] Social History Tobacco Use Types Packs/Day Years [...] on filedocumented in this encounter Care Teams Channel Marketing Coordinator Relationship Specialty Start Date End Date Eunice Nix MD [address] [place] [address] PCP - General Pediatrics 08/14/17 09/15/23 documented as of this encounter
--- OUTSIDE RECORDS SUMMARY | 2025-02-06 11:08 | XMS_ITS | Encounter Summary ---
Author Organization [facility] Address [address] [place] [address] Phone Care Team Providers Care Database Architect Name Role Phone Eunice Nix MD Primary Care Provider [phone] Reason for Visit * Reason Comments Med Refill Encounter Details Date Type Department Care Team (Late st Contact Info) Description 12/20/2020 Refill [facility] [place] [address] [place] [address] Eunice Nix MD [address] [place] [address] Hives Social History Tobacco Use Types Packs/Day [...] urticaria documented in this encounter Care Teams Database Architect Relationship Specialty Start Date End Date Eunice Nix MD [address] [place] [address] PCP - General Pediatrics 08/14/17 09/15/23 documented as of this encounter
--- OUTSIDE RECORDS SUMMARY | 2025-02-06 11:08 | XMS_ITS | Encounter Summary ---
Author Organization [facility] Address [address] [place] [address] Phone Care Team Providers Care Wastewater Plant Civil Engineer Name Role Phone Eunice Nix MD Primary Care Provider [phone] Reason for Visit * Reason Comments Med Refill Encounter Details Date Type Department Care Team (Late st Contact Info) Description 08/01/2018 Refill [facility] [address] [address] Johnna Seymour MD Severe persistent asthma without [...] complication documented in this encounter Care Teams Wastewater Plant Civil Engineer Relationship Specialty Start Date End Date Eunice Nix MD [address] [place] [address] PCP - General Pediatrics 08/14/17 09/15/23 documented as of this encounter
--- OUTSIDE RECORDS SUMMARY | 2025-02-06 11:08 | XMS_ITS | Encounter Summary ---
Author Organization [facility] Address [address] [place] [address] Phone Care Team Providers Care Psychiatry Adult Physician Name Role Phone Eunice Nix MD Primary Care Provider [phone] Reason for Visit * Reason Comments Med Refill Encounter Details Date Type Department Care Team (Late st Contact Info) Description 01/17/2020 Refill [facility] [place] [address] [place] [address] Eunice Nix MD [address] [place] [address] Severe persistent asthma with acute exacerbation Social [...] exacerbation documented in this encounter Care Teams Psychiatry Adult Physician Relationship Specialty Start Date End Date Eunice Nix MD [address] [place] [address] PCP - General Pediatrics 08/14/17 09/15/23 documented as of this encounter
--- OUTSIDE RECORDS SUMMARY | 2025-02-06 11:08 | XMS_ITS | Encounter Summary ---
Author Organization [facility] Address [address] [place] [address] Phone Care Team Providers Care Tester/Lift Trucker Name Role Phone Eunice Nix MD Primary Care Provider [phone] Reason for Visit * Reason Onset Date Comments Home asthma visit 06/30/2018 Encounter Details Date Type Department Care Team (Late st Contact Info) Description 06/30/2018 Patient Outreach [facility] [place] [address] [place] [address] Eunice Nix MD [address] [place] [address] Home asthma visit Social History Tobacco Use [...] on filedocumented in this encounter Care Teams Tester/Lift Trucker Relationship Specialty Start Date End Date Eunice Nix MD [address] [place] [address] PCP - General Pediatrics 08/14/17 09/15/23 documented as of this encounter
--- OUTSIDE RECORDS SUMMARY | 2025-02-06 11:08 | XMS_ITS | Encounter Summary ---
Author Organization [facility] Address [address] [place] [address] Phone Care Team Providers Care Offset Lithographic Press Operator Name Role Phone Eunice Nix MD Primary Care Provider [phone] Reason for Visit * Reason Onset Date Comments Home Asthma Visit 06/14/2018 Encounter Details Date Type Department Care Team (Late st Contact Info) Description 06/14/2018 Patient Outreach [facility] [place] [address] [place] [address] Eunice Nix MD [address] [place] [address] Home Asthma Visit Social History Tobacco Use [...] on filedocumented in this encounter Care Teams Offset Lithographic Press Operator Relationship Specialty Start Date End Date Eunice Nix MD [address] [place] [address] PCP - General Pediatrics 08/14/17 09/15/23 documented as of this encounter
--- OUTSIDE RECORDS SUMMARY | 2025-02-06 11:08 | XMS_ITS | Encounter Summary ---
Author Organization [facility] Address [address] [place] [address] Phone Care Team Providers Care Reinforcing Steel Erector Name Role Phone Eunice Nix MD Primary Care Provider [phone] Encounter Details Date Type Department Care Team (Late st Contact Info) Description 03/23/2016 Documentation [facility] [place] Family Medicine [address] [place] [address] Family Medicine, Physician [address] [place] [address] Social History Tobacco Use Types Packs/Day Years [...] on filedocumented in this encounter Care Teams Reinforcing Steel Erector Relationship Specialty Start Date End Date Eunice Nix MD [address] [place] [address] PCP - General Pediatrics 08/14/17 09/15/23 documented as of this encounter
--- OUTSIDE RECORDS SUMMARY | 2025-02-06 11:08 | XMS_ITS | Encounter Summary ---
Author Organization [facility] Address [address] [place] [address] Phone Care Team Providers Care Gizzard Skin Remover Name Role Phone Eunice Nix MD Primary Care Provider [phone] Reason for Visit * Reason Comments Med Refill Encounter Details Date Type Department Care Team (Late st Contact Info) Description 04/18/2021 Refill [facility] [address] [place] [address] Eunice Nix MD [address] [place] [address] Other depression; Anxiety Social History Tobacco Use [...] last 12 months, has t he electric, [employer], oil, or water [employer] threatened to shut off your services in [...] unspecified documented in this encounter Care Teams Gizzard Skin Remover Relationship Specialty Start Date End Date Eunice Nix MD [address] [place] [address] PCP - General Pediatrics 08/14/17 09/15/23 documented as of this encounter
--- OUTSIDE RECORDS SUMMARY | 2025-02-06 11:08 | XMS_ITS | Encounter Summary ---
Author Organization [facility] Address [address] [place] [address] Phone Care Team Providers Care Coffee Maker Name Role Phone Eunice Nix MD Primary Care Provider [phone] Reason for Visit * Reason Onset Date Comments Schedule home asthma visit 06/13/2018 Encounter Details Date Type Department Care Team (Late st Contact Info) Description 06/13/2018 Patient Outreach [facility] [place] [address] [place] [address] Eunice Nix MD [address] [place] [address] Schedule home asthma visit Social History Tobacco [...] on filedocumented in this encounter Care Teams Coffee Maker Relationship Specialty Start Date End Date Eunice Nix MD [address] [place] [address] PCP - General Pediatrics 08/14/17 09/15/23 documented as of this encounter
--- OUTSIDE RECORDS SUMMARY | 2025-02-06 11:08 | XMS_ITS | Encounter Summary ---
Author Organization [facility] Address [address] [place] [address] Phone Care Team Providers Care Shopper'S Aide Name Role Phone Eunice Nix MD Primary Care Provider [phone] Encounter Details Date Type Department Care Team (Late st Contact Info) Description 02/19/2014 Documentation [facility] [place] [place] Family Medicine [address] [place] [address] Family Medicine, Physician [address] [place] [address] Social History Tobacco Use Types Packs/Day Years [...] on filedocumented in this encounter Care Teams Shopper'S Aide Relationship Specialty Start Date End Date Eunice Nix MD [address] [place] [address] PCP - General Pediatrics 08/14/17 09/15/23 documented as of this encounter
--- OUTSIDE RECORDS SUMMARY | 2025-02-06 11:09 | XMS_ITS | Encounter Summary ---
Author Organization [facility] Address [address] [place] [address] Phone Care Team Providers Care Biofuels Engineering Manager Name Role Phone Eunice Nix MD Primary Care Provider [phone] Encounter Details Date Type Department Care Team (Late st Contact Info) Description 09/02/2017 Patient Outreach [facility] [address] [place] [address] Eunice Nix MD [address] [place] [address] Social History Tobacco Use Types Packs/Day Years [...] 3:18 PM EST Sexual Orientation Straight 12/28/2018 3 :18 PM EST documented as of this encounter Plan of Treatment Not on file documented as of this encounter Visit Diagnoses Not on filedocumented in this encounter Care Teams Biofuels Engineering Manager Relationship Specialty Start Date End Date Eunice Nix MD [address] [place] [address] PCP - General Pediatrics 08/14/17 09/15/23 documented as of this encounter
--- OUTSIDE RECORDS SUMMARY | 2025-02-06 11:09 | XMS_ITS | Encounter Summary ---
Author Organization [facility] Address [address] [place] [address] Phone Care Team Providers Care Program Engagement Director Name Role Phone Eunice Nix MD Primary Care Provider [phone] Encounter Details Date Type Department Care Team (Late st Contact Info) Description 11/04/2017 Patient Outreach [facility] [address] [place] [address] Eunice Nix MD [address] [place] [address] Social History Tobacco Use Types Packs/Day Years [...] filedocumented in this encounter Care Teams Program Engagement Director Relationship Specialty Start Date End Date Eunice Nix MD [address] [place] [address] PCP - General Pediatrics 08/14/17 09/15/23 documented as of this encounter
--- OUTSIDE RECORDS SUMMARY | 2025-02-06 11:09 | XMS_ITS | Encounter Summary ---
Author Organization [facility] Address [address] [place] [address] Phone Care Team Providers Care Lift Mechanic Name Role Phone Eunice Nix MD Primary Care Provider [phone] Encounter Details Date Type Department Care Team (Late st Contact Info) Description 08/08/2017 Patient Outreach [facility] [address] [place] [address] Erlinda Valdez MD Social History Tobacco Use [...] on filedocumented in this encounter Care Teams Lift Mechanic Relationship Specialty Start Date End Date Eunice Nix MD [address] [place] [address] PCP - General Pediatrics 08/14/17 09/15/23 documented as of this encounter
--- OUTSIDE RECORDS SUMMARY | 2025-02-06 11:09 | XMS_ITS | Encounter Summary ---
Author Organization [facility] Address [address] [place] [address] Phone Care Team Providers Care Outside Cutter Hand Name Role Phone Eunice Nix MD Primary Care Provider [phone] Encounter Details Date Type Department Care Team (Late st Contact Info) Description 09/07/2017 Patient Outreach [facility] [address] [place] [address] Eunice Nix MD [address] [place] [address] Social History Tobacco Use Types Packs/Day Years [...] filedocumented in this encounter Care Teams Outside Cutter Hand Relationship Specialty Start Date End Date Eunice Nix MD [address] [place] [address] PCP - General Pediatrics 08/14/17 09/15/23 documented as of this encounter
--- OUTSIDE RECORDS SUMMARY | 2025-02-06 11:09 | XMS_ITS | Encounter Summary ---
Author Organization [facility] Address [address] [place] [address] Phone Care Team Providers Care Base Brander Name Role Phone Eunice Nix MD Primary Care Provider [phone] Encounter Details Date Type Department Care Team (Late st Contact Info) Description 10/24/2015 Documentation [facility] [place] Family Medicine [address] [place] [address] Family Medicine, Physician [address] [place], [place] [address] Social History Tobacco Use Types Packs/Day Years [...] on filedocumented in this encounter Care Teams Base Brander Relationship Specialty Start Date End Date Eunice Nix MD [address] [place] [address] PCP - General Pediatrics 08/14/17 09/15/23 documented as of this encounter
--- OUTSIDE RECORDS SUMMARY | 2025-02-06 11:09 | XMS_ITS | Encounter Summary ---
Author Organization [facility] Address [address] [place] [address] Phone Care Team Providers Care Spanish Interpreter/Translator Name Role Phone Eunice Nix MD Primary Care Provider [phone] Encounter Details Date Type Department Care Team (Late st Contact Info) Description 10/03/2017 Patient Outreach [facility] [address] [place] [address] Eunice Nix MD [address] [place] [address] Social History Tobacco Use Types Packs/Day Years [...] on filedocumented in this encounter Care Teams Spanish Interpreter/Translator Relationship Specialty Start Date End Date Eunice Nix MD [address] [place] [address] PCP - General Pediatrics 08/14/17 09/15/23 documented as of this encounter
--- OUTSIDE RECORDS SUMMARY | 2025-02-06 11:09 | XMS_ITS | Encounter Summary ---
Author Organization [facility] Address [address] [place] [address] Phone Care Team Providers Care Vegetable Handler Name Role Phone Eunice Nix MD Primary Care Provider [phone] Reason for Visit * Reason Comments Med Refill Encounter Details Date Type Department Care Team (Late st Contact Info) Description 08/18/2020 Refill [facility] [address] [place] [address] Eunice Nix MD [address] [place] [address] Intrinsic eczema Social History Tobacco Use Types [...] eczema documented in this encounter Care Teams Vegetable Handler Relationship Specialty Start Date End Date Eunice Nix MD [address] [place] [address] PCP - General Pediatrics 08/14/17 09/15/23 documented as of this encounter
--- OUTSIDE RECORDS SUMMARY | 2025-02-06 11:09 | XMS_ITS | Encounter Summary ---
Author Organization [facility] Address [address] [place] [address] Phone Care Team Providers Care Skein Bleacher Name Role Phone Eunice Nix MD Primary Care Provider [phone] Reason for Visit * Reason Comments Med Refill Encounter Details Date Type Department Care Team (Late st Contact Info) Description 08/12/2017 Refill [facility] [address] [address] Erlinda Valdez MD Severe persistent asthma, unspecified [...] Primary documented in this encounter Care Teams Skein Bleacher Relationship Specialty Start Date End Date Eunice Nix MD [address] [place] [address] PCP - General Pediatrics 08/14/17 09/15/23 documented as of this encounter
--- OUTSIDE RECORDS SUMMARY | 2025-02-06 11:09 | XMS_ITS | Encounter Summary ---
Author Organization [facility] Address [address] [place] [address] Phone Care Team Providers Care Cement Or Concrete Finishing Supervisor Name Role Phone Eunice Nix MD Primary Care Provider [phone] Reason for Visit * Reason Comments Med Refill Encounter Details Date Type Department Care Team (Late st Contact Info) Description 07/03/2018 Refill [facility] - [address] [address] Johnna Seymour MD Severe persistent asthma without [...] complication documented in this encounter Care Teams Cement Or Concrete Finishing Supervisor Relationship Specialty Start Date End Date Eunice Nix MD [address] [place] [address] PCP - General Pediatrics 08/14/17 09/15/23 documented as of this encounter
--- OUTSIDE RECORDS SUMMARY | 2025-02-06 11:09 | XMS_ITS | Encounter Summary ---
Author Organization [facility] Address [address] [place] [address] Phone Care Team Providers Care Director Medical Affairs Name Role Phone Eunice Nix MD Primary Care Provider Encounter Details Date Type Department Care Team (Late st Contact Info) Description 10/05/2017 Patient Outreach [facility] [address] [place] [address] Eunice Nix MD [address] [place] [address] Social History Tobacco Use Types Packs/Day Years [...] filedocumented in this encounter Care Teams Director Medical Affairs Relationship Specialty Start Date End Date Eunice Nix MD [address] [place] [address] PCP - General Pediatrics 08/14/17 09/15/23 documented as of this encounter
--- OUTSIDE RECORDS SUMMARY | 2025-02-06 11:09 | XMS_ITS | Encounter Summary ---
Author Organization [facility] Address [address] [place] [address] Phone Care Team Providers Care Event Promoter Name Role Phone Eunice Nix MD Primary Care Provider [phone] Encounter Details Date Type Department Care Team (Late st Contact Info) Description 10/28/2017 Patient Outreach [facility] [address] [place] [address] Eunice Nix MD [address] [place] [address] Social History Tobacco Use Types Packs/Day Years [...] on filedocumented in this encounter Care Teams Event Promoter Relationship Specialty Start Date End Date Eunice Nix MD [address] [place] [address] PCP - General Pediatrics 08/14/17 09/15/23 documented as of this encounter
--- OUTSIDE RECORDS SUMMARY | 2025-02-06 11:09 | XMS_ITS | Encounter Summary ---
Author Organization [facility] Address [address] [place] [id number] Phone Care Team Providers Care Machine Stapler Name Role Phone Eunice Nix MD Primary Care Provider [phone] Encounter Details Date Type Department Care Team (Late st Contact Info) Description 09/21/2017 Patient Outreach [facility] [address] [place] [address] Eunice Nix MD [address] [place] [address] Social History Tobacco Use Types Packs/Day Years [...] on filedocumented in this encounter Care Teams Machine Stapler Relationship Specialty Start Date End Date Eunice Nix MD [address] [place] [address] PCP - General Pediatrics 08/14/17 09/15/23 documented as of this encounter
--- OUTSIDE RECORDS SUMMARY | 2025-02-06 11:09 | XMS_ITS | Encounter Summary ---
Author Organization [facility] Address [address] [place] [id number] Phone Care Team Providers Care Deputy Sheriff Building Guard Name Role Phone Eunice Nix MD Primary Care Provider [phone] Encounter Details Date Type Department Care Team (Late st Contact Info) Description 09/26/2017 Patient Outreach [facility] [address] [place] [address] Eunice Nix MD [address] [place] [address] Social History Tobacco Use Types Packs/Day Years [...] on filedocumented in this encounter Care Teams Deputy Sheriff Building Guard Relationship Specialty Start Date End Date Eunice Nix MD [address] [place] [address] PCP - General Pediatrics 08/14/17 09/15/23 documented as of this encounter
[2025-02-06 11:10] VITALS: BP 100/52; PULSE 71; O2SAT 97; BMI 34.3
--- NOTE | 2025-02-06 11:10 | A.OFFVIS_ITS ---
Vital Signs 02/06/25 11:10 Height 4 ft 11 in Weight 169 lb 12.095 oz BMI 34.3 BP 100/52 L Blood Pressure Location Lt brachial Position Sitting Pulse 71 Pulse Source Pulse Oximeter Pulse Oximetry (%) 97 Oxygen Delivery Method Room Air Intake Visit Reasons: Asthma Assembler 1St Shift Required: No Staff Submarine Warfare Officer: Staff Submarine Warfare Officer offered & declined Accompanied by: Self / Same As Patient Allergies No Known Allergies Allergy (Verified 02/06/25 11:12) HPI Comments Details: The patient is a 24-year-old woman with known severe persistent asthma. She has had asthma for most of her life. She has been under the care of pediatric pulmonary at [facility]. She has not required hospitalization in many years. In the meantime she has underlying significant allergic asthma. She has had allergy testing back in 2008 the last time that I could see. It appeared that she has significant allergies to both environment on exposures and mold. she is also very allergic to cats and dogs and primarily cats. Unfortunately she does have both cats and dogs living with her. Her IgE greater than 3000. Initially she had been on Xolair for peer time. However then she was switched over to Dupixent. The patient apparently did well on Dupixent but she developed significant conjunctivitis and therefore could no longer tolerated. She was also placed on Fasenra for period time. These medications were provided to her many years ago so therefore she does not know exactly how effective they were. But currently after she lost follow up with her manager women she stopped using biologics and she has been on inhaler therapy. She has required prednisone on a regular basis based on uncontrolled symptoms in addition to that she does continue to use albuterol on a daily basis. She currently has Ventolin as rescue inhaler although she feels ProAir has been more effective for her in the past. Therefore I will requested. She has been on Dulera and also Spiriva. She has been on this for a few years since she has not seen any significant improvement. Therefore she is wondering if she can consider any other alternatives. This time we can consider switching over to Trelegy. Another option would be to switch over to nebulized therapies will rib on performance. However, this will be more of a commitment with time and in that may be an issue. In addition to that we talked about going back on biologic therapies. Will have her undergo additional blood work at this time get PFTs to see what her baseline is and we will discuss further biologic therapy options that her left based on the once that she has not tried. 11/10/2022 the patient is here for sick visit. The patient was initially evaluated for her significant severe asthma. She was supposed to get blood work in addition to PFTs. Unfortunately, she has not follow through with that. In the meantime she is been evaluated multiple times for asthma flares. Today she did come in for sick visit. She is having increasing chest tightness and wheezing. Denies any fevers or chills. Positive sick contacts she does have cold-like symptoms. The patient has been using her respiratory therapy with Dulera and Spiriva. She is also been using rescue inhaler multiple times a day. At this point the patient does have wheezing on examination appears to have an asthma flare. She is going to need prednisone. 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 Therefore, I did provide her a letter for her to minimize exposure specially while she is recovering from this asthma flare-up. She knows to have a blood work in addition to her PFTs in order to see if we can get her on biologic therapy. She is already tried and failed multiple biologics therefore she is a little reluctant. I do believe that Tezspire will be a good option. 03/04/2023 the patient is here for a pulmonary follow-up visit. She has a hard time with the breathing. She has had multiple sick visits because of worsening asthma exacerbations. She is required prednisone now multiple times as well. She is still on a prednisone taper down to 30 mg. She also continues with respiratory medications although her Dulera was not refilled. I will make sure to send her all the medications the pharmacy as she needs to be able to continue with good adherence. In the meantime she was approved for test prior. Although, she lives in [place] and is very hard for her to get here. Therefore I did talk to our nursing staff and will going to see about switching her Tezspire to a home administration. Once she gets the medication at home if is approved then she will call the office for us to set up a 1 time visit for teaching. In the meantime I did set her additional prednisone. This is to slow down her prednisone tapers she can decrease down to 10 an [id number] so therefore she does not have another flare-up before her test prior injection. 07/01/2023 the patient is here for a pulmonary follow-up visit. She is doing fairly well. She does respond well to the Dulera and Spiriva. She has also been taking prednisone again. She started working outside and she started having a little flare up and she wanted to make sure that it improve so she did have to miss any work. She is working at a car wash. She has not exposed to the fumes or the chemicals because she is mainly outside. In the meantime she has responded well to the Tezspire. She has not been able to get it. Will go ahead and give her the information so she can call the pharmacy, [facility] in order to request delivery of the injections that she can continue the biologic therapy. The patient does have persistent severe asthma and therefore these biologic therapies will be crucial. She is going to monitor closely for any worsening eczema while on the Tezspire. In the meantime she is going to wean off her prednisone. 03/20/2024 the patient is here for a pulmonary follow-up visit. Overall she is doing okay. She started developing a flare-up of her asthma and eczema this weekend. She did go to urgent care and she got additional prednisone. She continues on her respiratory therapy. She is no longer doing biologics. At t his point she has tried and failed the Dupixent and also tezspire. She is Xolair in the past but not sure why she stopped it. Will go ahead and request allergy testing and IgE levels to see if that is an option for her to try to minimize her steroids. At this point she has evidence of chronicity with asthma COPD overlap syndrome. She has significant chronic bronchitis and therefore she will be also a good candidat for Daliresp. Will send that to the pharmacy. She is aware of the adverse effects and she needs to take it slowly and develop tolerance. Should continue with respiratory therapy as well. Will follow-up in 4-6 months. If she has any issues prior to that she will call for an earlier assessment. 02/06/2025 the patient is here for pulmonary follow-up visit. The patient has been struggling with her asthma. She just completed a course of prednisone and she then had to restart another 1. she had been on multiple biologics in the past. Her licensed physical therapist assistant did recommend her going back on Dupixent. Although she did develop conjunctivitis well on Dupixent. Her licensed physical therapist assistant did recommend to try Dupixent again and she will provide her with a ointment for her eyes to av oid conjunctivitis. Therefore she will talk to her manager women again about that. Will go ahead and start her on theophylline small dose and will monitor her levels. Will increase the dose accordingly. She will continue with her respiratory medications which include Dulera and Spiriva. She also has a nebulizer therapy. She continues to need systemic prednisone then will give her additional inhaled corticosteroids As we increase the theophylline dose. [facility] Medical History (Updated 02/07/25 @ 20:03 by Emeka Khan MD) History of vitamin D deficiency History of depression Asthma-COPD overlap syndrome Allergies Atopic dermatitis Chronic allergic rhinitis Surgical History (Updated 12/25/24 @ 09:48 by Marlene Mcginnis MD) No pertinent past surgical history Family History (Updated 12/25/24 @ 09:57 by Marlene Mcginnis MD) Mother Bronchial asthma Depression Brother Bronchial asthma Depression Maternal Grandmother Bronchial asthma Paternal Grandfather Colon cancer Social History Housing: Apartment Patient Tobacco Use Status: Never used Tobacco e-Cigarette/Vaping Use: Never Used service: No Current occupational status: employed Cognitive needs: No Hearing needs: No Vision needs: No Review of Systems Const Denies fatigue and Denies fever(s) Eyes Denies change in vision ENT Denies change in voice Card Denies chest pain and Reports dyspnea on exertion Resp Reports chest congestion, Reports cough, Reports dyspnea on exertion and Reports wheezing GI Reports no additional complaints Musc Reports no additional complaints Skin/Breast Reports rash Neuro Reports no additional complaints Endo Denies fatigue Bruno/Lymph Denies easy bruising and Denies lymphadenopathy Aller/Immun Reports urticaria, Reports seasonal rhinorrhea and Reports wheezing Physical Exam Vital Signs: Last Vital Signs Pulse 71 02/06/25 11:10 BP 100/52 L 02/06/25 11:10 Pulse Ox 97 02/06/25 11:10 Oxygen Delivery Method Room Air 02/06/25 11:10 BMI result Body Mass Index 34.3 Const General: comfortable HEENT General nose exam: Abnormal mucous membranes and turbinates present erythematous and Epistaxis present Eyes General: appearance normal, both eyes and all related structures Neck Neck: Yes supple Chest Chest palpation & inspection: normal inspection of the chest Resp Effort & Inspection: normal respiratory effort and prolonged expiratory phase Auscultation: no wheezes and diminished lung sounds Cardio Rate: regular rate Rhythm: regular rhythm Heart sounds: S1 normal heart sound present and S2 normal heart sound present GI Auscultation: normal bowel sounds Skin General skin exam: other ( Eczema) Extrem General: Yes no clubbing, cyanosis or edema Assessment & Plan Assessment & Plan (1) Asthma: Code(s): J45.909 - Unspecified asthma, uncomplicated Category: Medical Qualifiers: Asthma severity: severe Asthma persistence: persistent Asthma complication type: with acute exacerbation Qualified Code(s): J45.51 - Severe persistent asthma with (acute) exacerbation (2) Atopic dermatitis: Code(s): L20.9 - Atopic dermatitis, unspecified Category: Medical Qualifiers: Atopic dermatitis type: flexural Qualified Code(s): L20.89 - Other atopic dermatitis (3) Allergies: Code(s): T78.40XA - Allergy, unspecified, initial encounter Category: Medical Qualifiers: Encounter type: subsequent encounter Qualified Code(s): T78.40XD - Allergy, unspecified, subsequent encounter (4) Asthma-COPD overlap syndrome: Code(s): J44.89 - Other specified chronic obstructive pulmonary disease Category: Medical Plan continue Dulera and Spiriva short-acting beta agonist as needed stopped Tezspire, consider Xolair or retrying Dupixent stopped Daliresp start Theophylliine bloodwork/allergy testing continue Prednisone taper Follow-up in 4 months Orders: Orders Theophylline 02/06/25 J44.89 - Other specified chronic obstructive pulmonary disease, L20.89 - Other atopic dermatitis Immunoglobulin E 02/06/25 J44.89 - Other specified chronic obstructive pulmonary disease, L20.89 - Other atopic dermatitis ANCA Vasculitides 02/06/25 J44.89 - Other specified chronic obstructive pulmonary disease, L20.89 - Other atopic dermatitis Complete Blood Count Auto Diff 02/06/25 J44.89 - Other specified chronic obstructive pulmonary disease, L20.89 - Other atopic dermatitis Erythrocyte Sedimentation Rate 02/06/25 J44.89 - Other specified chronic obstructive pulmonary disease, L20.89 - Other atopic dermatitis Medications: New theophylline ER 100 mg PO Q12H 60 tabs 6RF 30 days [id number] 5-10-100 mg/5 mL 10 mL PO Q4H PRN 473 mL 0RF cold symptoms 30 days Coding Level of Care Code Est Pt Level 4 (01550) Diagnoses Severe persistent asthma with acute exacerbation J45.51 Asthma severity: severe Asthma persistence: persistent Asthma complication type: with acute exacerbation Flexural atopic dermatitis L20.89 Atopic dermatitis type: flexural Allergy, subsequent encounter T78.40XD Encounter type: subsequent encounter Asthma-COPD overlap syndrome J44.89 Time Spent (min) 16
== END 2025-02-06 11:34 | disposition home or self-care (01) ==
LOC: HO.HPS 11:02
PROVIDERS: PCP Internal Medicine; Visit Provider Hospitalist
DX: J45.51 Severe persistent asthma with (acute) exacerbation (principal); L20.89 Other atopic dermatitis; T78.40XD Allergy, unspecified, subsequent encounter; J44.89 Other specified chronic obstructive pulmonary disease
CPT/HCPCS: 99214

== ENCOUNTER → 2025-02-06 11:01 | Outpatient (BNVA) | payer OTHER, SELFPAY | PROVIDERS: PCP Internal Medicine; Visit Provider Hospitalist | DX: J45.51 Severe persistent asthma with (acute) exacerbation (principal); J44.89 Other specified chronic obstructive pulmonary disease; L20.89 Other atopic dermatitis; T78.40XD Allergy, unspecified, subsequent encounter; Z79.899 Other long term (current) drug therapy | CPT/HCPCS: 99212 ==